=== PATIENT | female | born 1940 | race Caucasian/White ===

== ENCOUNTER 2017-03-12 21:13 | Emergency (ER) | payer MEDICARE ==
[2017-03-12 23:09] VITALS: BP 120/66
--- NOTE | 2017-03-12 23:21 | UC ---
Knee Pain HPI - HPI Summary HPI Summary: PT HAD RIGHT TOTAL KNEE 9 YEARS AGO AND HAD REVISION 5 DAYS AGO ON 03/07/[address] [facility] [address] ADDISON. TODAY RIGHT KNEE BECAME MORE PAINFUL, SWOLLEN AND RED. SWELLING HAS EXTENDED DOWN TO HER ANKLE. NO CALF TENDERNESS. IS ON LOVENOX. NO FEVER. PAINFUL TO MOVE AT THE KNEE JOINT. - History of Current Complaint Chief Complaint: UCLowerExtremity Stated Complaint: KNEE PAIN Time Seen by Provider: 03/12/17 22:43 Hx Obtained From: Patient Onset/Duration: Gradual Onset, Lasting Hours, Still Present Severity Initially: Moderate Severity Currently: Moderate Pain Intensity: 4 Pain Scale Used: 0-10 Numeric Character: Dull, Aching Aggravating Factor(s): Movement, Weight Bearing Alleviating Factor(s): Rest Associated Signs And Symptoms: Positive: Swelling, Redness Able to Bear Weight: Yes - Allergies/Home Medications Allergies/Adverse Reactions: Allergies Allergy/AdvReac Type Severity Reaction Status Date / Time No Known Allergies Allergy Verified 03/12/17 21:23 PMH/Surg Hx/FS Hx/Imm Hx Previously Healthy: Yes - Surgical History Surgical History: Yes Surgery Procedure, Year, and Place: LUMBAR [id number], THROWN FROM A HORSE 50 YEARS. BILAT CATARACT SURGERY NOVEMBER 2012, BILATERAL KNEE REPLACEMENTS. HAMMERTOES AND BUNION SURGERYS. BTL [facility]. APPENDECTOMY [facility]. LEFT WRIST 2013 [facility]. TUBAL LIGATION. LT BREAST BIOPSY. TONSILS REMOVED A CHILD - Family History Known Family History: Positive: Hypertension - Social History Alcohol Use: Occasionally Substance Use Type: None Smoking Status (MU): Never Smoked Tobacco Type: Cigarettes Have You Smoked in the Last Year: No When Did the Patient Quit Smoking/Using Tobacco: Over 50 years ago - Immunization History Most Recent Influenza Vaccination: never Most Recent Tetanus Shot: 2011 Most Recent Pneumonia Vaccination: 2011 Review of Systems Constitutional: Negative Skin: Other - ERYTHEMA AT SURGICAL SITE Respiratory: Negative Cardiovascular: Negative Gastrointestinal: Negative Musculoskeletal: Arthralgia, Decreased ROM, Edema All Other Systems Reviewed And Are Negative: Yes Physical Exam Triage Information Reviewed: Yes Appearance: Well-Appearing, No Pain Distress, Well-Nourished Vital Signs: Initial Vital Signs Temp 98.8 F 03/12/17 21:19 Pulse 76 03/12/17 21:19 Resp 18 03/12/17 21:19 BP 121/70 03/12/17 21:19 Pulse Ox 96 03/12/17 21:19 Vital Signs Reviewed: Yes Eyes: Positive: Conjunctiva Clear ENT: Positive: Hearing grossly normal Neck: Positive: Supple Respiratory: Positive: No respiratory distress, No accessory muscle use Cardiovascular: Positive: Pulses Normal Abdomen Description: Positive: Soft Musculoskeletal: Positive: ROM Limited @ - RIGHT KNEE, Edema @ - RIGHT KNEE AND ANKLE, Other: - RIGHT KNEE SURGICAL INCISION INTACT. ERYTHEMA MEDIALLY WITH TENDERNESS AND WARMTH. NO DRAINAGE Neurological: Positive: Alert Psychological: Positive: Age Appropriate Behavior Skin: Positive: Other - SURGICAL SITE ERYTHEMA AND TENDERNESS Knee Pain Course/Dx - Differential Dx/Diagnosis Provider Diagnoses: RIGHT KNEE SURGICAL SITE INFECTION - Physician Notifications Discussed Patient Care With: Chris Fuentes - [place] [facility] [place] [facility] [place] Time Discussed With Above Provider: 23:15 Discharge - Discharge Plan Condition: Stable Disposition: OTHER Discharge Disposition Comment: [place] [facility] [place] [facility] [place] Patient Education Materials: Surgical Site Infections (ED) Referrals: Umesh Cardenas MD [Primary Care Provider] - If Needed Additional Instructions: GO DIRECTLY TO THE ER FROM HERE FOR FURTHER EVALUATION
== END 2017-03-12 23:13 ==
LOC: UCEAST 21:13
DX: T81.4XXA Infection following a procedure, initial encounter (principal); Z96.651 Presence of right artificial knee joint

== ENCOUNTER 2017-03-12 23:40 | Emergency (ER) | payer MEDICARE ==
[2017-03-13 02:39] LABS: Hematocrit 41 % (35-47); Hemoglobin 13.7 g/dl (12.0-16.0); Mean Corpuscular HGB Conc 34 g/dl (31-36); Mean Corpuscular Hemoglobin 32 pg (27-31); Mean Corpuscular Volume 95 fL (80-97); Mean Platelet Volume 8 um3 (7.4-10.4); Red Blood Count 4.31 10^6/ul (4.0-5.4); Red Cell Distribution Width 13 % (10.5-15); White Blood Count 6.6 10^3/ul (3.5-10.8)
[2017-03-13 03:04] LABS: Albumin 4.1 g/dL (3.2-5.2); BUN/Creatinine Ratio 23.8 (8-20); C Reactive Protein 18.94 mg/L (< 5.00); Calcium 9.7 mg/dL (8.6-10.3); EGFR African American 85.2 (>60); EGFR Non-African American 66.3 (>60); Globulin 2.9 g/dL (2-4); Potassium 4.1 mmol/L (3.5-5.0); Total Bilirubin 0.4 mg/dL (0.2-1.0)
[2017-03-13] MEDS ORDERED: HYDROcodone/ACETAMIN 5-325 MG* 1 TAB PO ONE (03:14)
[2017-03-13] MEDS ORDERED: Docusate CAP* 100 MG PO ONE (03:14)
[2017-03-13 03:28] LABS: Erythrocyte Sed Rate 26 mm/Hr (0-40)
[2017-03-13 03:50] VITALS: BP 115/66
--- NOTE | 2017-03-15 13:11 | UC ---
Progress - Progress Note Progress Note: CALLED PT TO SEE HOW SHE IS DOING. REPORTS SHE FOLLOWED-UP WITH HER SURGEON AT [facility] AND THEY ARE WATCHING HER CLOSELY. NO ABX YET. PT STATES IT SEEMS BETTER TODAY. HAS NEXT FOLLOW-UP IN 2 DAYS. - CAIN VOGEL MD
--- NOTE | 2017-03-24 15:19 | ED ---
Pooja Ivey Rebecca, scribed for Chris Fuentes MD on 03/13/17 at 0202 . Lower Extremity - HPI Summary HPI Summary: Pt is a 76 y/o F referred from [facility] [place] who presents to ED c/o R knee pain and erythema s/p revision surgery. Five days ago she had a revision surgery on the R knee at [facility]. Two days ago, she began experiencing pain and erythema on the medial aspect of the R knee. Pain is currently mild, ranked 3/10 and was initially described as sharp and "nerve-like" though now it is described as tight. Sx aggravated by bending the knee, alleviated by nothing. Additionally c/ o ALVAREZ. States that prior to onset of sx, after the surgery, she had a more extensive ROM than she does now. - History of Current Complaint Chief Complaint: EDExtremityLower Stated Complaint: POSSIBLE INFECTION IN RT KNEE/FROM CONV CARE Time Seen by Provider: 03/13/17 01:46 Hx Obtained From: Patient Onset of Pain: Days - 2 days, Prior to Arrival Onset/Duration: Still Present Severity Currently: Mild Pain Intensity: 3 Pain Scale Used: 0-10 Numeric Location: Is Discrete @ - Medial aspect of the R knee Associated Signs And Symptoms: Positive: Redness Aggravating Factor(s): Movement Alleviating Factor(s): Nothing - Allergies/Home Medications Allergies/Adverse Reactions: Allergies Allergy/AdvReac Type Severity Reaction Status Date / Time No Known Allergies Allergy Verified 03/12/17 21:23 PMH/Surg Hx/FS Hx/Imm Hx Endocrine/Hematology History: Denies: Hx Diabetes, Hx Thyroid Disease Cardiovascular History: Reports: Other Cardiovascular Problems/Disorders - HAS OCCASSIONALLY TACHYCARDIA - CARDIAC MD AWARE Denies: Hx Angina, Hx Coronary Artery Disease, Hx Hypercholesterolemia, Hx Hypertension, Hx Myocardial Infarction, Hx Pacemaker/ICD Respiratory History: Reports: Hx Sleep Apnea Denies: Hx Asthma, Hx Chronic Obstructive Pulmonary Disease (COPD) GI History: Reports: Hx Irritable Bowel - UNDER CONTROL WITH DIET Denies: Hx Ulcer History: Reports: Hx Kidney Stones Musculoskeletal History: Reports: Hx Arthritis, Hx Back Problems - Rods in place , Other Musculoskeletal History Denies: Hx Rheumatoid Arthritis, Hx Osteoporosis Sensory History: Reports: Hx Cataracts - SURGERY DONE, Hx Contacts or Glasses, Hx Hearing Aid - BILAT Opthamlomology History: Reports: Hx Cataracts - SURGERY DONE, Hx Contacts or Glasses Neurological History: Reports: Hx Migraine Psychiatric History: Reports: Hx Anxiety, Hx Depression Denies: Hx Panic Disorder - Cancer History Hx Chemotherapy: No Hx Radiation Therapy: No - Surgical History Surgery Procedure, Year, and Place: LUMBAR [id number], THROWN FROM A HORSE 50 YEARS. BILAT CATARACT SURGERY NOVEMBER 2012, BILATERAL KNEE REPLACEMENTS. HAMMERTOES AND BUNION SURGERYS. BTL [facility] [place]. APPEN[facility]OMY [facility]. LEFT WRIST 2013 [facility] [place]. TUBAL LIGATION. LT BREAST BIOPSY. TONSILS REMOVED A CHILD Hx Anesthesia Reactions: No - WILL DEVELOP SEVERE HEAD ACHE AFTER IF NOT ABLE TO EAT Infectious Disease History: No Infectious Disease History: Denies: Hx Clostridium Difficile, Hx Hepatitis, Hx Human Immunodeficiency Virus (HIV), Hx Shingles, Hx Tuberculosis, Hx Known/Suspected VRE, Hx Known/ Suspected VRSA, History Other Infectious Disease, Traveled Outside the [place] in Last 30 Days - Family History Known Family History: Positive: Cardiac Disease - father - Social History Alcohol Use: Occasionally Substance Use Type: Reports: None Smoking Status (MU): Never Smoked Tobacco Type: Cigarettes Have You Smoked in the Last Year: No Review of Systems Negative: Fever, Chills Negative: Erythema Negative: Sore Throat Negative: Chest Pain Negative: Shortness Of Breath, Cough Negative: Abdominal Pain, Vomiting, Nausea Negative: dysuria, hematuria Positive: Arthralgia - R knee pain and erythema on the medial aspect. Negative : Myalgia, Edema Negative: Rash Neurological: Other - NEGATIVE: Dizziness All Other Systems Reviewed And Are Negative: Yes Physical Exam - Summary Physical Exam Summary: Constitutional: Well-developed, Well-nourished, Alert. (-) Distressed Skin: Warm, Dry, Mild erythema and warmth on the medial aspect of the R knee with no drainage from the wound. HENT: Normocephalic; Atraumatic Eyes: Conjunctiva normal Neck: Musculoskeletal ROM normal neck. (-) JVD, (-) Stridor, (-) Tracheal deviation Cardio: Rhythm regular, rate normal, Heart sounds normal; Intact distal pulses; The pedal pulses are 2+ and symmetric. Radial pulses are 2+ and symmetric. (-) Murmur Pulmonary/Chest wall: Effort normal. (-) Respiratory distress, (-) Wheezes, (-) Rales Abd: Soft, (-) Tenderness, (-) Distension, (-) Guarding, (-) Rebound Musculoskeletal: (-) Edema Lymph: (-) Cervical adenopathy Neuro: Alert, Oriented x3 Psych: Mood and affect Normal Triage Information Reviewed: Yes Vital Signs On Initial Exam: Initial Vitals Temp Pulse Resp BP Pulse Ox 97.7 F 70 14 104/79 100 03/12/17 23:52 03/12/17 23:52 03/12/17 23:52 03/12/17 23:52 03/12/17 23:52 Vital Signs Reviewed: Yes - [place] Coma Scale Coma Scale Total: 15 Diagnostics - Vital Signs Vital Signs Temp Pulse Resp BP Pulse Ox 03/12/17 23:52 97.7 F 70 14 104/79 100 - Laboratory Result Diagrams: 03/13/17 02:25 03/13/17 02:25 Lab Statement: Any lab studies that have been ordered have been reviewed, and results considered in the medical decision making process. Lower Extremity Course/Dx - Course Assessment/Plan: Pt is a 76 y/o F referred from [facility] [place] who presents to ED c/o R knee pain and erythema s/p revision surgery. Five days ago she had a revision surgery on the R knee at [facility]. Two days ago, she began experiencing pain and erythema on the medial aspect of the R knee. Pain is currently mild, ranked 3/10 and was initially described as sharp and "nerve-like" though now it is described as tight. Sx aggravated by bending the knee. Additionally c/o ALVAREZ. States that prior to onset of sx, after the surgery, she had a more extensive ROM than she does now. WBC of 6.6, CRP of 18.94. In the ED course, pt received [place] and [place] 5/325. Discussed care ofpt with Dr. Faustin who advised that the pt be D/C to home with a follow up with [facility] at 8 a.m. She will be D/C to home with Dx of postoperative swelling. She understands and agrees. - Diagnoses Provider Diagnoses: post-operative swelling - Physician Notifications Discussed Care Of Patient With: Dallin Faustin MD Time Discussed With Above Provider: 03:30 Instructed by Provider To: Other - Advised she be D/C to home and follow up with [facility] at 8 a.m. this morning. Discharge - Discharge Plan Condition: Stable Disposition: HOME Patient Education Materials: Swollen Knee Joint (ED) Referrals: Umesh Cardenas MD [Primary Care Provider] - Additional Instructions: Follow up with Dr. Carr or Priyanka at [facility] tomorrow at 8 a.m. RETURN TO THE EMERGENCY DEPARTMENT FOR CHANGING OR WORSENING SYMPTOMS The documentation as recorded by the Pooja amato Rebecca accurately reflects the service I personally performed and the decisions made by , Chris Fuentes MD.
== END 2017-03-13 03:49 | disposition home or self-care (01) ==
LOC: ED 23:40
DX: T81.89XA Other complications of procedures, not elsewhere classified, initial encounter (principal); R60.9 Edema, unspecified; X58.XXXA Exposure to other specified factors, initial encounter; Y92.9 Unspecified place or not applicable
CPT/HCPCS: 36415; 80053; 85027; 85652; 86140; 99282

== ENCOUNTER 2017-09-17 15:31 | Emergency (ER) | payer MEDICARE ==
--- OUTSIDE RECORDS SUMMARY | 2017-09-17 15:38 | XMS REPORT ---
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 Umesh Cardenas MD Primary Care Physician Unavailable Payers Type Date Identification Numbers Payment Provider Subscriber Commercial Policy Number: [id number] Amer Prog/Todays Options Eagle Figueredo PayID: [id number] [address] [address] Attn: [place] [address] Medigap Part B Expires: 2012 Policy Number: [facility] Eagle Figueredo [id number] Healthcare PayID: [id number] [address] [place] [address] Medigap Part B Effective: 2007 Policy Number: [id number] Medicare Eagle Figueredo Expires: 2012 PayID: [id number] [address] [place] [address] Problems Date Description Provider Status Onset: 05/11/2011 Depressive disorder Genesis Brandt M.D.,FACP Onset: 12/13/2016 Paroxysmal supraventricular Genesis Brandt tachycardia Keira,FACP Onset: 05/11/2011 Kyphoscoliosis and scoliosis Genesis Brandt M.D.,FACP Onset: 11/28/2013 Hyperlipidemia Umesh Cardenas Active Keira,FACP Onset: 04/02/2014 Primary fibromyalgia syndrome Genesis Brandt M.D.,FACP Onset: 06/17/2014 Obstructive sleep apnea of adult Jenny JERI Conner, RN, Active 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 Onset: 06/03/2015 Idiopathic peripheral neuropathy Harjit Gregg MD Active Onset: 06/03/2015 Carpal tunnel syndrome of left Harjit Gregg MD Active wrist Onset: 10/29/2015 Abnormal gait Harjit Gregg MD Active Onset: 10/29/2015 Neck pain Harjit Gregg MD Active Onset: 10/29/2015 Lumbar radiculopathy Harjit Gregg MD Active Onset: 11/03/2015 Localized, primary osteoarthritis Umesh Cardenas Active of the shoulder region Keira,FACP Note: LEFT Onset: 08/18/2016 Thoracic and lumbosacral Harjit Gregg MD Active neuritis Onset: 02/11/2014 Osteoarthritis Umesh Cardenas, Inactive Keira,FACP Inactive: 11/03/2015 Onset: 10/08/2015 Allergic arthritis of the Umesh Cardenas M.D.,FACP Inactive shoulder region Inactive: 11/03/2015 Family History Date Family Member(s) Problem(s) Comments General Diabetes General Heart Disease : (age 65 Years) Father due to NE : (age 85 Years) Mother due to CHF Children 2 Siblings 2 1 now First Sister due to Cancer, Ovarian () Second Sister Stroke due to PFO Second Sister Cancer, Breast Social History Type Date Description Comments Marital Status Lives With Occupation 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 [employer] Cigarette Use Never Smoked Cigarettes ETOH Use 09/06/2016 Rarely consumes alcohol Smoking Patient has never smoked Recreational Drug Use Denies Drug Use Daily Caffeine Consumes on average 2 cups half caff of regular coffee per day Exercise Type/Frequency Riley Chi General Hx Text 2 children Allergies, Adverse Reactions, Alerts Date Description Reaction Status Severity Comments 09/12/2013 NKDA active 03/04/2011 NKDA inactive Medications Medication Date Status Form Strength Qnty SIG Indications Ordering Provider Gabapentin 10/20 Active Capsules 100mg 240ca Take 1 G60.8 ps Capsule Four Marysol, Times A Day MD For 2 Weeks Then Increase To Take 2 Capsules By Mouth Four Times A Day Baclofen 08/18 Active Tablets 10mg 90tab Take / To M54.14 Bailee Awad s 1 Tablet By Janeth, Mouth At M.D. Night Bisoprolol 07/02 Active Tablets 5mg 45tab 1/2 by mouth Umesh s every day John Cardenas M.D.,[facility] Cymbalta 04/[address] 60mg 90cap 1 by mouth Part s every day John Cardenas M.D.,[facility] Lorazepam Active Tablets 0.5mg 30tab 1-2 by mouth s every 8 John Cardenas, hours as M.John,[facility] Dewy Rose 3 Active Capsules daily Unknown / Vitamin B-12 Active daily Unknown /0000 Probiotic Active Capsules daily Unknown Formula /0000 Turmeric Active four daily Unknown /0000 Holy Basil Active Homeopathic Unknown /0000 prn Vitamin D Active Capsules 1 by mouth Unknown (Cholecalciferol /0000 every day ) Magnesium Active Tablets 1 by mouth Unknown /0000 every day Wild Yam Active Capsules 100mg 1 cap po bid Unknown /0000 Black Cohosh 09/06 Hx Capsules 160mg ( not taking) John Cardenas, - Keira,[facility] 09/19 Ultracet 04/12 Hx Tablets 37.5-325m 30tab 1-2 tabs by Afia g s mouth every Sheppard, - 4-6 hours as Keira 09/06 needed pain Diphenhydramine 07/23 Hx Tablets 25mg 1 tab in R53.83 Umesh evening to John Cardenas, - aid sleep Keira,FACP 10/07 Metoprolol 06/23 Hx Tablets 25mg 60tab 1/2 by mouth I47.1 Kamron S. Succinate ER ER 24HR s daily at [facility], DO - bedtime FAC 07/02 Duloxetine HCL 04/[address] 60mg 30cap take one Part s capsule by John Cardenas, - mouth every M.D.,FACP Gabapentin 04/13 Hx Capsules 100mg 240ca Take Two ps Capsules By John Cardenas, - Mouth Four M.D.,FACP 03/17 Times A Day Diltiazem HCL ER 12/18 Hx Caps ER 120mg 90cap take one 785.1 Umesh Coated Beads 24HR s capsule by John Cardenas, - mouth every M.D.,FACP [id number] 04/02 Hx Capsules 500-50mg 60cap by mouth 715.09 s twice a day Francesca Rosales M.D.,[facility] 04/16 Voltaren 02/11 Hx Gel 1% 100g apply 2 gms 715.09 to elbow John Cardenas, - twice a day M.DPraveena,[facility] 03/29 as needed Can also use 1-2 grams on fingers, feet as needed Glucosamine 02/11 Hx Tablets 1 tab by 715.09 Umesh Chondroitin mouth twice John Cardenas, Advanced - a day. M.DPraveena,FACP 04/16 Naproxen 12/31 Hx Tablets 500mg 28tab by mouth 726.[address] jacobsen twice a day Faustino, - with food x N.P. 02/11 14 Diltiazem HCL ER 12/04 Hx Caps ER 120mg 90cap 1 po qd 785.1 Umesh Segovia 24HR s Francesca Rosales M.D.,[facility] 12/18 [place] 10/31 Hx Tablets 5-325mg 40tab 1-2 tab by Afia s mouth every Sheppard, - 4-6 hours as M.D. 12/04 needed pain /2013 Percocet 09/12 Hx Tablets 5-325mg 60tab take 1-2 s tabs by Sheppard, - mouth q4-6 M.D. 04/02 hours needed pain Azithromycin 10/05 Hx Tablets 250mg 6tabs 2 qd for 1 466.0 Umesh day, then 1 John Cardenas, - qd M.DPraveena,[facility] 12/12 Cheratussin ac 10/05 Hx Syrup 100-10mg/ 200ml 2 tsp po qid 466.0 Patricia 5ML prn Francesca Rosales M.D.,[facility] 02/02 Cymbalta 03/[address] 60mg 30cap 1 by mouth Lucho Part s every day JAVED Morales - 04/13 Cyclobenzaprine 03/04 Hx Tablets 10mg 45tab one po tid Umesh s prn spasm Francesca Rosales M.D.,[facility] 04/16 Atenolol 03/04 Hx Tablets 25mg 90tab Take One 785.1 Umesh s Tablet By John Cardenas, - Mouth Every M.DPraveena,[facility] Gabapentin 03/04 Hx Capsules 100mg 240ca take two ps capsules by JAVED Morales - mouth four 04/13 times a /2014 Cephalexin 00 Hx Tablets 250mg 20tab 1 po qid for Unknown /0000 s 5 days - 08/21 Augmentin 00 Hx Tablets 875-125mg 20tab one by mouth Unknown /0000 s every 12 - hours for 11/22 Meloxicam 00/ Hx Tablets 7.5mg 30tab 1 by mouth Unknown /0000 s every day - 04/16 Tramadol HCL Hx Tablets 50mg 50tab 1/2 to 1 tab Umesh /0000 s four times a John Cardenas, - day as Keira,[facility] 03/17 Vitamin D 00/ Hx 3000Iu One tab PO Unknown (Cholecalciferol /0000 daily ) - 03/30 Medications Administered in Office Medication Date Status Form Strength Qnty SIG Indications Ordering Provider Depomedrol Administered Injection Afia 80MG 015 Keira Sheppard Depomedrol Administered Injection Afia 80MG 015 Keira Sheppard Immunizations CPT Code Status Date Vaccine Lot # [id number] Given 10/08/2015 Pneumococcal Conjugate Vaccine 13 Valent For [id number] Intramuscular Use [id number] Given 04/17/2012 Tdap - Tetanus/Diptheria/Acellular Pertussis [id number] Given 03/23/2012 Fluzone Vaccine [id number] Given 03/04/2011 Zoster (Zostavax) [id number] 30745 Given 03/04/2011 Pneumonia Vaccine [id number] 39206 Given 08/16/2004 Td Toxoids Adsorbed For Use 7Yrs Or Older For Intramuscular Use [id number] Refused 05/11/2011 Influenza Virus 3Yrs & Over Vital Signs Date Vital Result Comment 08/24/2017 Height 64 inches 5'4" Weight 142.00 lb with shoes Heart Rate 68 /min BP Systolic Sitting 114 mmHg Lue reg cuff BP Diastolic Sitting 60 mmHg Lue reg cuff BP Systolic Standing 112 mmHg Lue reg cuff BP Diastolic Standing 62 mmHg Lue reg cuff Respiratory Rate 17 /min BMI (Body Mass Index) 24.4 kg/m2 02/28/2017 Height 63.25 inches 5'3.25" Weight 146.25 lb Heart Rate 61 /min BP Systolic Sitting 98 mmHg BP Diastolic Sitting 50 mmHg Body Temperature 98.0 F O2 % BldC Oximetry 98 % BMI (Body Mass Index) 25.7 kg/m2 02/21/2017 Height 65.5 inches 5'5.50" Weight 148.00 lb Heart Rate 78 /min BP Systolic Sitting 122 mmHg BP Diastolic Sitting 80 mmHg BMI (Body Mass Index) 24.3 kg/m2 01/10/2017 Height 65.5 inches 5'5.50" Weight 146.00 lb Heart Rate 68 /min BP Systolic Sitting 118 mmHg BP Diastolic Sitting 72 mmHg Respiratory Rate 14 /min O2 % BldC Oximetry 97 % BMI (Body Mass Index) 23.9 kg/m2 12/13/2016 Weight 143.25 lb Heart Rate 82 /min BP Systolic Sitting 102 mmHg BP Diastolic Sitting 56 mmHg BP Systolic Standing 118 mmHg BP Diastolic Standing 68 mmHg BP Systolic Lying Down 105 mmHg BP Diastolic Lying Down 68 mmHg BP Systolic Recheck 122 mmHg BP Diastolic Recheck 70 mmHg Body Temperature 98.2 F O2 % BldC Oximetry 96 % 10/20/2016 Height 65 inches 5'5" Weight 145.00 lb Heart Rate 60 /min BP Systolic Sitting 118 mmHg BP Diastolic Sitting 70 mmHg BMI (Body Mass Index) 24.1 kg/m2 09/15/2016 Height 65 inches 5'5" Weight 149.50 lb no shoes Heart Rate 60 /min BP Systolic Sitting 114 mmHg Rue reg cuff BP Diastolic Sitting 62 mmHg Rue reg cuff BP Systolic Standing 108 mmHg Rue reg cuff BP Diastolic Standing 64 mmHg Rue reg cuff Respiratory Rate 15 /min BMI (Body Mass Index) 24.9 kg/m2 Ejection Fraction 60-65% 06/24/2015-echo 09/06/2016 Height 65 inches 5'5" Weight 147.00 lb Heart Rate 48 /min BP Systolic Sitting 108 mmHg BP Diastolic Sitting 60 mmHg Body Temperature 97.9 F BMI (Body Mass Index) 24.5 kg/m2 08/18/2016 Height 65 inches 5'5" Weight 147.12 lb Heart Rate 62 /min BP Systolic Sitting 118 mmHg BP Diastolic Sitting 76 mmHg BMI (Body Mass Index) 24.5 kg/m2 06/30/2016 Height 65 inches 5'5" Weight 141.00 lb w/o shoes Heart Rate 60 /min reg BP Systolic Sitting 106 mmHg Lue, reg cuff BP Diastolic Sitting 60 mmHg Lue, reg cuff BP Systolic Standing 106 mmHg Lue BP Diastolic Standing 64 mmHg Lue Respiratory Rate 16 /min BMI (Body Mass Index) 23.5 kg/m2 Ejection Fraction 60-65% as of 06/24/15 echo 04/25/2016 Height 65 inches 5'5" Weight 141.00 lb Body Temperature 96.3 F BMI (Body Mass Index) 23.5 kg/m2 03/31/2016 Height 65 inches 5'5" Weight 141.00 lb Heart Rate 68 /min BP Systolic 116 mmHg BP Diastolic 62 mmHg Pain Level 1 BMI (Body Mass Index) 23.5 kg/m2 03/17/2016 Weight 141.00 lb Heart Rate 74 /min BP Systolic Sitting 124 mmHg BP Diastolic Sitting 66 mmHg Respiratory Rate 15 /min Body Temperature 98.2 F O2 % BldC Oximetry 98 % 12/21/2015 Height 65.5 inches 5'5.50" Weight 140.00 lb Heart Rate 64 /min BP Systolic Sitting 122 mmHg BP Diastolic Sitting 68 mmHg Respiratory Rate 14 /min BMI (Body Mass Index) 22.9 kg/m2 11/03/2015 Height 65.5 inches 5'5.50" Weight 141.00 lb Heart Rate 59 /min BP Systolic Sitting 128 mmHg BP Diastolic Sitting 72 mmHg Body Temperature 97.7 F O2 % BldC Oximetry 97 % BMI (Body Mass Index) 23.1 kg/m2 10/29/2015 Height 65.5 inches 5'5.50" Weight 140.00 lb Heart Rate 76 /min BP Systolic Sitting 112 mmHg BP Diastolic Sitting 68 mmHg Respiratory Rate 14 /min BMI (Body Mass Index) 22.9 kg/m2 10/23/2015 Height 65.5 inches 5'5.50" Weight 140.00 lb Heart Rate 65 /min BP Systolic Sitting 112 mmHg BP Diastolic Sitting 64 mmHg Respiratory Rate 14 /min O2 % BldC Oximetry 98 % BMI (Body Mass Index) 22.9 kg/m2 10/08/2015 Height 63.5 inches 5'3.50" Weight 140.00 lb Heart Rate 64 /min BP Systolic Sitting 100 mmHg BP Diastolic Sitting 62 mmHg Body Temperature 97.7 F O2 % BldC Oximetry 98 % BMI (Body Mass Index) 24.4 kg/m2 08/04/2015 Height 63.5 inches 5'3.50" Weight 143.00 lb Heart Rate 60 /min BP Systolic Sitting 106 mmHg BP Diastolic Sitting 68 mmHg Respiratory Rate 18 /min O2 % BldC Oximetry 97 % BMI (Body Mass Index) 24.9 kg/m2 Neck Circumference in inches 13 07/24/2015 Height 63.5 inches 5'3.50" Weight 145.00 lb w/o shoes Heart Rate 80 /min reg BP Systolic Sitting 104 mmHg Rue, reg cuff BP Diastolic Sitting 70 mmHg Rue, reg cuff BP Systolic Standing 106 mmHg Rue BP Diastolic Standing 66 mmHg Rue Respiratory Rate 16 /min BMI (Body Mass Index) 25.3 kg/m2 Ejection Fraction 60-65% as of 06/24/15 echo 07/23/2015 Height 63.5 inches 5'3.50" Weight 144.00 lb Heart Rate 72 /min BP Systolic Sitting 98 mmHg BP Diastolic Sitting 60 mmHg Body Temperature 96.3 F O2 % BldC Oximetry 96 % BMI (Body Mass Index) 25.1 kg/m2 06/23/2015 Height 63.5 inches 5'3.50" Weight 134.00 lb Heart Rate 72 /min BP Systolic 102 mmHg Ra reg cuff BP Diastolic 68 mmHg Ra reg cuff BP Systolic Sitting 102 mmHg LA reg cuff BP Diastolic Sitting 64 mmHg LA reg cuff BP Systolic Standing 98 mmHg Ra BP Diastolic Standing 58 mmHg Ra Respiratory Rate 16 /min BMI (Body Mass Index) 23.4 kg/m2 06/16/2015 Weight 141.00 lb Heart Rate 60 /min BP Systolic Sitting 100 mmHg BP Diastolic Sitting 62 mmHg Body Temperature 98.5 F O2 % BldC Oximetry 97 % 06/03/2015 Height 63.75 inches 5'3.75" Weight 140.00 lb Heart Rate 72 /min BP Systolic Sitting 118 mmHg BP Diastolic Sitting 60 mmHg BMI (Body Mass Index) 24.2 kg/m2 01/02/2015 Weight 145.00 lb Heart Rate 72 /min BP Systolic Sitting 116 mmHg BP Diastolic Sitting 68 mmHg Body Temperature 98.6 F O2 % BldC Oximetry 98 % 12/02/2014 Height 65 inches 5'5" Heart Rate 68 /min BP Systolic Sitting 118 mmHg BP Diastolic Sitting 64 mmHg Respiratory Rate 16 /min 10/07/2014 Height 65 inches 5'5" Weight 144.00 lb Heart Rate 72 /min BP Systolic Sitting 126 mmHg BP Diastolic Sitting 66 mmHg Respiratory Rate 16 /min BMI (Body Mass Index) 24.0 kg/m2 07/10/2014 Height 65 inches 5'5" Heart Rate 76 /min BP Systolic 103 mmHg BP Diastolic 66 mmHg 06/17/2014 Height 65 inches 5'5" Weight 149.00 lb Heart Rate 62 /min BP Systolic Sitting 126 mmHg BP Diastolic Sitting 58 mmHg Respiratory Rate 18 /min O2 % BldC Oximetry 97 % BMI (Body Mass Index) 24.8 kg/m2 06/17/2014 Weight 149.50 lb Heart Rate 84 /min BP Systolic Sitting 98 mmHg BP Diastolic Sitting 56 mmHg Body Temperature 97.6 F 06/03/2014 Height 65 inches 5'5" Weight 149.50 lb Heart Rate 72 /min BP Systolic Sitting 110 mmHg BP Diastolic Sitting 71 mmHg Body Temperature 97.8 F O2 % BldC Oximetry 96 % BMI (Body Mass Index) 24.9 kg/m2 05/20/2014 Weight 149.00 lb Heart Rate 80 /min BP Systolic Sitting 106 mmHg BP Diastolic Sitting 52 mmHg Body Temperature 97.5 F 04/16/2014 Weight 146.50 lb Heart Rate 80 /min BP Systolic Sitting 104 mmHg BP Diastolic Sitting 50 mmHg Body Temperature 97.7 F 04/02/2014 Weight 145.00 lb Heart Rate 88 /min BP Systolic Sitting 108 mmHg BP Diastolic Sitting 48 mmHg Body Temperature 98.5 F 02/13/2014 Height 65 inches 5'5" Weight 140.00 lb Heart Rate 69 /min BP Systolic 110 mmHg BP Diastolic 69 mmHg BMI (Body Mass Index) 23.3 kg/m2 02/11/2014 Weight 144.00 lb Heart Rate 82 /min BP Systolic Sitting 120 mmHg BP Diastolic Sitting 66 mmHg Body Temperature 97.3 F 12/31/2013 Height 64.75 inches 5'4.75" Weight 145.00 lb Heart Rate 80 /min BP Systolic Sitting 102 mmHg BP Diastolic Sitting 48 mmHg Body Temperature 97.8 F BMI (Body Mass Index) 24.3 kg/m2 12/04/2013 Height 64.75 inches 5'4.75" Weight 141.75 lb Heart Rate 80 /min BP Systolic Sitting 104 mmHg BP Diastolic Sitting 62 mmHg Body Temperature 98.6 F BMI (Body Mass Index) 23.8 kg/m2 11/14/2013 Height 65 inches 5'5" Weight 140.00 lb Body Temperature 98.2 F BMI (Body Mass Index) 23.3 kg/m2 10/31/2013 Height 65 inches 5'5" Heart Rate 67 /min BP Systolic 101 mmHg BP Diastolic 58 mmHg 09/26/2013 Height 65.5 inches 5'5.50" Weight 142.00 lb Heart Rate 56 /min BP Systolic 113 mmHg BP Diastolic 69 mmHg BMI (Body Mass Index) 23.3 kg/m2 09/12/2013 Height 65.5 inches 5'5.50" Weight 140.00 lb Heart Rate 69 /min BP Systolic 103 mmHg BP Diastolic 72 mmHg BMI (Body Mass Index) 22.9 kg/m2 01/24/2013 Height 65 inches 5'5" Weight 140.00 lb Heart Rate 58 /min BP Systolic 103 mmHg BP Diastolic 64 mmHg BMI (Body Mass Index) 23.3 kg/m2 11/22/2012 Weight 142.00 lb Heart Rate 76 /min BP Systolic Sitting 118 mmHg BP Diastolic Sitting 72 mmHg 09/13/2012 Height 64.75 inches 5'4.75" Weight 140.50 lb Heart Rate 76 /min BP Systolic Sitting 106 mmHg BP Diastolic Sitting 64 mmHg Body Temperature 98.9 F BMI (Body Mass Index) 23.6 kg/m2 08/21/2012 Height 65.25 inches 5'5.25" Weight 140.50 lb Heart Rate 76 /min BP Systolic Sitting 110 mmHg BP Diastolic Sitting 62 mmHg BMI (Body Mass Index) 23.2 kg/m2 04/17/2012 Height 64.5 inches 5'4.50" Weight 136.00 lb Heart Rate 68 /min BP Systolic Sitting 110 mmHg BP Diastolic Sitting 58 mmHg BMI (Body Mass Index) 23.0 kg/m2 12/13/2011 Weight 135.00 lb Heart Rate 70 /min BP Systolic Sitting 94 mmHg BP Diastolic Sitting 54 mmHg Body Temperature 97.8 F lt ear 10/06/2011 Weight 136.00 lb Heart Rate 68 /min BP Systolic Sitting 98 mmHg BP Diastolic Sitting 56 mmHg Body Temperature 98.7 F lt ear 05/11/2011 Weight 146.00 lb Heart Rate 64 /min BP Systolic Sitting 100 mmHg BP Diastolic Sitting 60 mmHg 03/04/2011 Height 65 inches 5'5" Weight 132.00 lb Heart Rate 68 /min BP Systolic Sitting 108 mmHg BP Diastolic Sitting 62 mmHg BMI (Body Mass Index) 22.0 kg/m2 Results Test Date Test Result H/L Range Note Comp Metabolic Panel 03/13/2017 Sodium 138 mmol/L 133-145 Potassium 4.1 mmol/L 3.5-5.0 Chloride 101 mmol/L 101-111 Co2 Carbon Dioxide 30 mmol/L 22-32 Anion Gap 7 mmol/L 2-11 Glucose 106 mg/dL High 70-100 Blood Urea Nitrogen 20 mg/dL 6-24 Creatinine 0.84 mg/dL 0.51-0.95 BUN/Creatinine Ratio 23.8 High 8-20 Calcium 9.7 mg/dL 8.6-10.3 Total Protein 7.0 g/dL 6.4-8.9 Albumin 4.1 g/dL 3.2-5.2 Globulin 2.9 g/dL 2-4 Albumin/Globulin Ratio 1.4 1-3 Total Bilirubin 0.40 mg/dL 0.2-1.0 Alkaline Phosphatase 63 U/L 34-104 Alt 13 U/L 7-52 Ast 18 U/L 13-39 Egfr Non- 66.3 >60 Egfr 85.2 >60 1 Laboratory test finding 03/13/2017 C Reactive Protein 18.94 mg/L High &lt ; 5.00 2 CBC No Diff 03/13/2017 White Blood Count 6.6 10^3/uL 3.5-10.8 Red Blood Count 4.31 10^6/uL 4.0-5.4 Hemoglobin 13.7 g/dL 12.0-16.0 Hematocrit 41 % 35-47 Mean Corpuscular Volume 95 fL 80-97 Mean Corpuscular Hemoglobin 32 pg High 27-31 Mean Corpuscular HGB Conc 34 g/dL 31-36 Red Cell Distribution Width 13 % 10.5-15 Platelet Count 292 10^3/uL 150-450 Mean Platelet Volume 8 um3 7.4-10.4 Laboratory test finding 03/13/2017 Erythrocyte Sed Rate 26 mm/Hr 0-40 Lipid Profile (Trig/Chol/HDL) 02/24/2017 Triglycerides 73 mg/dL 3 Cholesterol 209 mg/dL 4 HDL Cholesterol 71.8 mg/dL 5 LDL Cholesterol 123 mg/dL 6 Basic Metabolic Panel 02/24/2017 Sodium 140 mmol/L 133-145 Potassium 4.2 mmol/L 3.5-5.0 Chloride 104 mmol/L 101-111 Co2 Carbon Dioxide 32 mmol/L 22-32 Anion Gap 4 mmol/L 2-11 Glucose 91 mg/dL 70-100 Blood Urea Nitrogen 19 mg/dL 6-24 Creatinine 0.82 mg/dL 0.51-0.95 BUN/Creatinine Ratio 23.2 High 8-20 Calcium 9.6 mg/dL 8.6-10.3 Egfr Non- 68.1 >60 Egfr 87.6 >60 7 CBC Auto Diff 12/13/2016 White Blood Count 6.3 10^3/uL 3.5-10.8 Red Blood Count 4.37 10^6/uL 4.0-5.4 Hemoglobin 13.6 g/dL 12.0-16.0 Hematocrit 41 % 35-47 Mean Corpuscular Volume 94 fL 80-97 Mean Corpuscular Hemoglobin 31 pg 27-31 Mean Corpuscular HGB Conc 33 g/dL 31-36 Red Cell Distribution Width 14 % 10.5-15 Platelet Count 239 10^3/uL 150-450 Mean Platelet Volume 9 um3 7.4-10.4 Abs Neutrophils 3.9 10^3/uL 1.5-7.7 Abs Lymphocytes 1.8 10^3/uL 1.0-4.8 Abs Monocytes 0.4 10^3/uL 0-0.8 Abs Eosinophils 0.1 10^3/uL 0-0.6 Abs Basophils 0.1 10^3/uL 0-0.2 Abs Nucleated RBC 0 10^3/uL Granulocyte % 61.2 % 38-83 Lymphocyte % 28.7 % 25-47 Monocyte % 7.1 % 1-9 Eosinophil % 2.2 % 0-6 Basophil % 0.8 % 0-2 Nucleated Red Blood Cells % 0.1 Laboratory test finding 12/13/2016 TSH (Thyroid Stim Horm) 1.69 mcIU/mL 0.34-5.60 Basic Metabolic Panel 12/13/2016 Sodium 140 mmol/L 133-145 Potassium 4.0 mmol/L 3.5-5.0 Chloride 105 mmol/L 101-111 Co2 Carbon Dioxide 28 mmol/L 22-32 Anion Gap 7 mmol/L 2-11 Glucose 83 mg/dL 70-100 Blood Urea Nitrogen 27 mg/dL High 6-24 Creatinine 0.75 mg/dL 0.51-0.95 BUN/Creatinine Ratio 36.0 High 8-20 Calcium 9.3 mg/dL 8.6-10.3 Egfr Non- 75.5 >60 Egfr 97.1 >60 8 Laboratory test 04/12/2016 Surgical Pathology SEE RESULT BELOW 9, 10 finding Comp Metabolic Panel 10/30/2015 Sodium 139 mmol/L 133-145 Potassium 4.3 mmol/L 3.5-5.0 Chloride 103 mmol/L 101-111 Co2 Carbon Dioxide 30 mmol/L 22-32 Anion Gap 6 mmol/L 2-11 Glucose 92 mg/dL 70-100 Blood Urea Nitrogen 23 mg/dL 6-24 Creatinine 0.80 mg/dL 0.51-0.95 BUN/Creatinine Ratio 28.8 High 8-20 Calcium 9.3 mg/dL 8.6-10.3 Total Protein 6.3 g/dL Low 6.4-8.9 Albumin 4.2 g/dL 3.2-5.2 Globulin 2.1 g/dL 2-4 Albumin/Globulin Ratio 2.0 1-3 Total Bilirubin 0.50 mg/dL 0.2-1.0 Alkaline Phosphatase 72 U/L 34-104 Alt 23 U/L 7-52 Ast 26 U/L 13-39 Egfr Non- 70.3 >60 Egfr 90.4 >60 11 CBC Auto Diff 10/30/2015 White Blood Count 4.9 10^3/uL 3.5-10.8 Red Blood Count 4.50 10^6/uL 4.0-5.4 Hemoglobin 13.8 g/dL 12.0-16.0 Hematocrit 43 % 35-47 Mean Corpuscular Volume 95 fL 80-97 Mean Corpuscular Hemoglobin 31 pg 27-31 Mean Corpuscular HGB Conc 32 g/dL 31-36 Red Cell Distribution Width 14 % 10.5-15 Platelet Count 257 10^3/uL 150-450 Mean Platelet Volume 9 um3 7.4-10.4 Abs Neutrophils 2.4 10^3/uL 1.5-7.7 Abs Lymphocytes 1.7 10^3/uL 1.0-4.8 Abs Monocytes 0.5 10^3/uL 0-0.8 Abs Eosinophils 0.1 10^3/uL 0-0.6 Abs Basophils 0 10^3/uL 0-0.2 Abs Nucleated RBC 0.01 10^3/uL Granulocyte % 50.0 % 38-83 Lymphocyte % 35.6 % 25-47 Monocyte % 10.3 % High 1-9 Eosinophil % 3.1 % 0-6 Basophil % 1.0 % 0-2 Nucleated Red Blood Cells % 0.1 Lipid Profile (Trig/Chol/HDL) 09/25/2015 Triglycerides 49 mg/dL 12 Cholesterol 184 mg/dL 13 HDL Cholesterol 58.8 mg/dL 14 LDL Cholesterol 115 mg/dL 15 Laboratory test finding 09/23/2015 Vitamin B12 683 pg/mL 180-914 16 Laboratory test finding 06/16/2015 TSH (Thyroid Stim Horm) 2.76 ?IU/mL 0.34-5.60 T3 Total 0.77 ng/mL Low 0.87-1.78 Free T4 (Free Thyroxine) 0.82 ng/mL 0.61-1.12 Laboratory test finding 06/14/2015 Troponin-I (TnI) 0.03 ng/mL High < 0.03 17 Laboratory test finding 06/14/2015 Troponin-I (TnI) 0.02 ng/mL <0.03 18 CBC Auto Diff 06/14/2015 White Blood Count 9.3 10^3/uL 3.5-10.8 Red Blood Count 4.91 10^6/uL 4.0-5.4 Hemoglobin 15.4 g/dL 12.0-16.0 Hematocrit 47 % 35-47 Mean Corpuscular Volume 96 fL 80-97 Mean Corpuscular Hemoglobin 31 pg 27-31 Mean Corpuscular HGB Conc 33 g/dL 31-36 Red Cell Distribution Width 13 % 10.5-15 Platelet Count 300 10^3/uL 150-450 Mean Platelet Volume 9 um3 7.4-10.4 Abs Neutrophils 5.6 10^3/uL 1.5-7.7 Abs Lymphocytes 2.6 10^3/uL 1.0-4.8 Abs Monocytes 0.6 10^3/uL 0-0.8 Abs Eosinophils 0.2 10^3/uL 0-0.6 Abs Basophils 0.2 10^3/uL 0-0.2 Abs Nucleated RBC 0.01 10^3/uL Granulocyte % 60.0 % 38-83 Lymphocyte % 28.2 % 25-47 Monocyte % 7.0 % 1-9 Eosinophil % 2.6 % 0-6 Basophil % 2.2 % High 0-2 Nucleated Red Blood Cells % 0.1 Laboratory test finding 06/14/2015 Troponin-I (TnI) 0.00 ng/mL <0.03 19 Comp Metabolic Panel 06/14/2015 Sodium 137 mmol/L 133-145 Potassium 4.5 mmol/L 3.5-5.0 Chloride 100 mmol/L Low 101-111 Co2 Carbon Dioxide 27 mmol/L 22-32 Anion Gap 10 mmol/L 2-11 Glucose 113 mg/dL High 70-100 Blood Urea Nitrogen 25 mg/dL High 6-24 Creatinine 0.85 mg/dL 0.51-0.95 BUN/Creatinine Ratio 29.4 High 8-20 Calcium 10.3 mg/dL 8.6-10.3 Total Protein 7.0 g/dL 6.4-8.9 Albumin 4.7 g/dL 3.2-5.2 Globulin 2.3 g/dL 2-4 Albumin/Globulin Ratio 2.0 1-3 Total Bilirubin 0.50 mg/dL 0.2-1.0 Alkaline Phosphatase 91 U/L 34-104 Alt 21 U/L 7-52 Ast 31 U/L 13-39 Egfr Non- 65.7 >60 Egfr 84.5 >60 20 Laboratory test 06/14/2015 D Dimer Quantitative 321 ng/mL High Less Than 230 21 finding Magnesium 2.1 mg/dL 1.9-2.7 Comp Metabolic Panel 12/28/2014 Sodium 140 mmol/L 133-145 Potassium 4.2 mmol/L 3.5-5.0 Chloride 106 mmol/L 101-111 Co2 Carbon Dioxide 28 mmol/L 22-32 Anion Gap 6 mmol/L 2-11 Glucose 105 mg/dL High 70-100 Blood Urea Nitrogen 22 mg/dL 6-24 Creatinine 0.79 mg/dL 0.51-0.95 BUN/Creatinine Ratio 27.8 High 8-20 Calcium 9.1 mg/dL 8.6-10.3 Total Protein 6.0 g/dL Low 6.4-8.9 Albumin 4.2 g/dL 3.2-5.2 Globulin 1.8 g/dL Low 2-4 Albumin/Globulin Ratio 2.3 1-3 Total Bilirubin 0.40 mg/dL 0.2-1.0 Alkaline Phosphatase 83 U/L 34-104 Alt 17 U/L 7-52 Ast 23 U/L 13-39 Egfr Non- 71.5 >60 Egfr 92.0 >60 22 CBC Auto Diff 12/28/2014 White Blood Count 8.2 10^3/uL 4.8-10.8 Red Blood Count 4.53 10^6/uL 4.0-5.4 Hemoglobin 14.2 g/dL 12.0-16.0 Hematocrit 43 % 35-47 Mean Corpuscular Volume 96 fL 80-97 Mean Corpuscular Hemoglobin 32 pg High 27-31 Mean Corpuscular HGB Conc 33 g/dL 31-36 Red Cell Distribution Width 13 % 10.5-15 Platelet Count 247 10^3/uL 150-450 Mean Platelet Volume 9 um3 7.4-10.4 Abs Neutrophils 5.9 10^3/uL 1.5-7.7 Abs Lymphocytes 1.6 10^3/uL 1.0-4.8 Abs Monocytes 0.5 10^3/uL 0-0.8 Abs Eosinophils 0.1 10^3/uL 0-0.6 Abs Basophils 0.1 10^3/uL 0-0.2 Abs Nucleated RBC 0.01 10^3/uL Granulocyte % 71.8 % 38-83 Lymphocyte % 19.4 % Low 25-47 Monocyte % 6.4 % 1-9 Eosinophil % 1.6 % 0-6 Basophil % 0.8 % 0-2 Nucleated Red Blood Cells % 0.1 Laboratory test finding 03/18/2014 Lyme Disease Serology Negative Negative 23 Erythrocyte Sed Rate 7 mm/Hr 0-40 C Reactive Protein < 0.10 mg/L < 5.00 24 Rheumatoid Factor <15 IU/mL <15 25 Vitamin D, 25 Hydroxy 12/16/2013 25-Hydroxy Vitamin D2 <4.0 ng/mL 25-Hydroxy Vitamin D3 63 ng/mL 25-Hydroxy Vitamin D Total 63 ng/mL 26 Lipid Profile (Trig/Chol/HDL) 12/09/2013 Triglycerides 96 mg/dL 27, 28 Cholesterol 215 mg/dL 27, 29 HDL Cholesterol 70.5 mg/dL 27, 30 LDL Cholesterol 125 mg/dL 27, 31 Laboratory test 12/09/2013 TSH (Thyroid 1.83 IU/mL 0.34-5.60 27, 32 finding Stimulating Horm) T4 6.09 g/dL 6.09-12.23 27, 33 Comp Metabolic Panel 12/09/2013 Sodium 139 mmol/L 133-145 27 Potassium 4.2 mmol/L 3.7-5.6 27 Chloride 102 mmol/L 101-111 27 Co2 Carbon Dioxide 29 mmol/L 22-32 27 Anion Gap 8 mmol/L 2-11 27 Glucose 78 mg/dL 70-100 27 Blood Urea Nitrogen 19 mg/dL 6-24 27 Creatinine 0.85 mg/dL 0.51-0.95 27 BUN/Creatinine Ratio 22.4 High 8-20 27 Calcium 9.8 mg/dL 8.6-10.3 27 Total Protein 6.5 g/dL 6.4-8.9 27 Albumin 4.5 g/dL 3.2-5.2 27 Globulin 2.0 g/dL 2-4 27 Albumin/Globulin Ratio 2.3 1-3 27 Total Bilirubin 0.50 mg/dL 0.2-1.0 27 Alkaline Phosphatase 79 U/L 34-104 27 Alt 18 U/L 7-52 27 Ast 24 U/L 13-39 27 Egfr Non- 65.9 >60 27 Egfr 84.8 >60 27, 34 CBC With Manual Diff 12/09/2013 White Blood Count 5.1 10^3/uL 4.8-10.8 27 Red Blood Count 4.50 10^6/uL 4.0-5.4 27 Hemoglobin 14.3 g/dL 12.0-16.0 27 Hematocrit 43 % 35-47 27 Mean Corpuscular Volume 95 fL 80-97 27 Mean Corpuscular Hemoglobin 32 pg High 27-31 27 Mean Corpuscular HGB Conc 34 g/dL 31-36 27 Red Cell Distribution Width 14 % 10.5-15 27 Platelet Count 255 10^3/uL 150-450 27 Mean Platelet Volume 8 um3 7.4-10.4 27 Abs Neutrophils 2.7 10^3/uL 1.5-7.7 27 Abs Lymphocytes 1.9 10^3/uL 1.0-4.8 27 Abs Monocytes 0.3 10^3/uL 0-0.8 27 Abs Eosinophils 0.2 10^3/uL 0-0.6 27 Abs Basophils 0 10^3/uL 0-0.2 27 Abs Nucleated RBC 0 10^3/uL 27 Granulocyte % 53.1 % 38-83 27 Lymphocyte % 36.6 % 25-47 27 Monocyte % 6.7 % 1-9 27 Eosinophil % 3.0 % 0-6 27 Basophil % 0.6 % 0-2 27 Nucleated Red Blood Cells % 0 27 Surgical Pathology 11/05/2013 S RUN DATE: <SEE NOTE> Surgical Pathology 11/05/2012 S RUN DATE: <SEE NOTE> Surgical Pathology 07/02/2012 S RUN DATE: <SEE NOTE> Cytology 06/04/2012 Cy RUN DATE: <SEE NOTE> Laboratory test finding 05/17/2011 Ferritin 60 NG/ML 11.0-307 Lipid Profile 05/17/2011 Triglyceride 87 mg/dL 40-200 (Trig/Chol/HDL) Cholesterol 242 mg/dL High Less Than 200 39 High Density Lipoprotein 65 mg/dL High 40-60 40 Cholesterol/HDL Ratio 3.72 AVERAGE 1-4.44 Low Density Lipoprotein 160 mg/dL High Less Than 100 41 CBC Auto Diff 05/17/2011 White Blood Count 5.4 CUMM 4.8-10.8 Red Cell Count 4.63 CUMM 4.2-5.4 Hemoglobin 14.5 g/dL 12.0-16.0 Hematocrit 43 % 35-47 Mean Corpuscular Volume 94 um3 79-97 Mean Corpuscular Hemoglob 31 pg 27-31 Mean Corpuscular HGB Cone 34 g/dL 32-36 Redcell Distribution WDTH 14 % 10.5-15 Platelet Count 269 CUMM 150-450 Mean Platelet Volume 9.3 um3 7.4-10.4 Gran % 57.9 % 38-83 Lymph % 32.6 % 25-47 Mononuclear % 6.7 % 1-9 Eosinophil % 2.2 % 0-6 Basophil % 0.6 % 0-2 Abs Lymphs 1.8 1.0-4.8 Abs Mononuclear 0.4 0-0.8 Absolute Neutrophil Count 3.1 1.5-7.7 Abs Eosinophils 0.1 0-0.6 Abs Basophils 0 0-0.2 Laboratory test finding 05/17/2011 Vitamin B12 403 pg/mL 180-914 TSH 2.07 MIU/ML 0.34-5.60 Thyroxine Free 0.92 ng/dL 0.61-1.24 T3 Free 2.78 pg/mL 2.39-6.79 Insulin 9.5 mcIU/mL 2.6 - 24.9 42 Glucose 102 mg/dL High 70-100 Vitamin D, 25 Hydroxy 05/17/2011 25-Hydroxy Vitamin D2 <4.0 ng/mL () 25-Hydroxy Vitamin D3 40 ng/mL () 25-Hydroxy Vitamin D Total 40 ng/mL () 43 Laboratory test finding 03/21/2007 Estradiol < 20 pg/mL 44 FSH 33.58 MIU/ML 45 Progesterone 1.8 NG/ML 46 Laboratory test finding 03/07/2007 TSH 1.37 MIU/ML 0.34-5.60 47 Dhea Sulfate 42 g/dL 35.0-430.0 47, 48 Lipid Profile (Trig/Chol/HDL) 03/07/2007 Cholesterol 192 mg/dL Less Than 200 47, 49 Triglyceride 62 mg/dL 40-200 47 High Density Lipoprotein 56 mg/dL 40-60 47 Low Density Lipoprotein 124 mg/dL High Less Than 100 47, 50 Cholesterol/HDL Ratio 3.43 AVERAGE 1-4.44 47 Basic Metabolic Panel 03/07/2007 One Over Creatinine 1.11 47 Anion Gap 8.0 mmol/L 2-11 47, 51 BUN 15 mg/dL 6-24 47 Calcium 9.3 mg/dL 8.7-10.2 47 Chloride 105 mmol/L 101-111 47 Co2 (Carbon Dioxide) 25.0 mmol/L 22-32 47 Glucose 81 mg/dL 70-105 47 Potassium 5.0 mmol/L 3.5-5.0 47 Sodium 138 mmol/L 135-145 47 BUN/Creatinine Ratio 16.7 8-20 47 Creatinine 0.9 mg/dL 0.5-1.4 47 Laboratory test finding 03/07/2007 Estradiol 434.0 pg/mL 47, 52 FSH 29.20 MIU/ML 47, 53 Progesterone 11.3 NG/ML 47, 54 Testosterone Free & Total 03/07/2007 Testosterone,Free < 0.02 ng/dL 47, 55 Testosterone 32 ng/dL 14-76 47 Laboratory test finding 03/07/2007 Vitamin D, 25 Hydroxy 48.1 NG/ML 20- 100 47, 56 1 Because ethnic data is not always readily available, this report includes an eGFR for both -Americans and non- Americans. The National Kidney Disease Education Program (NKDEP) does not endorse the use of the MDRD equation for patients that are not between the ages of 18 and 70, are , have extremes of body size, muscle mass, or nutritional status, or are non- or non-. According to the National Kidney Foundation, irrespective of diagnosis, the stage of the disease is based on the level of kidney function: Stage Description GFR(mL/min/1.73 m(2)) 1 Kidney damage with normal or decreased GFR 90 2 Kidney damage with mild decrease in GFR 60-89 3 Moderate decrease in GFR 30-59 4 Severe decrease in GFR 15-29 5 Kidney failure <15 (or dialysis) 2 Acute inflammation: >10.00 3 Desirable <150 Borderline high 150-199 High 200-499 Very High >500 4 Desirable <200 Borderline high 200-239 High >239 5 Low <40 Desirable: 40-60 High: >60 6 Desirable: <100 mg/dL Near Optimal: 100-129 mg/dL Borderline High: 130-159 mg/dL High: 160-189 mg/dL Very High: >189 mg/dL 7 Because ethnic data is not always readily available, this report includes an eGFR for both -Americans and non- Americans. The National Kidney Disease Education Program (NKDEP) does not endorse the use of the MDRD equation for patients that are not between the ages of 18 and 70, are , have extremes of body size, muscle mass, or nutritional status, or are non- or non-. According to the National Kidney Foundation, irrespective of diagnosis, the stage of the disease is based on the level of kidney function: Stage Description GFR(mL/min/1.73 m(2)) 1 Kidney damage with normal or decreased GFR 90 2 Kidney damage with mild decrease in GFR 60-89 3 Moderate decrease in GFR 30-59 4 Severe decrease in GFR 15-29 5 Kidney failure <15 (or dialysis) 8 Because ethnic data is not always readily available, this report includes an eGFR for both -Americans and non- Americans. The National Kidney Disease Education Program (NKDEP) does not endorse the use of the MDRD equation for patients that are not between the ages of 18 and 70, are , have extremes of body size, muscle mass, or nutritional status, or are non- or non-. According to the National Kidney Foundation, irrespective of diagnosis, the stage of the disease is based on the level of kidney function: Stage Description GFR(mL/min/1.73 m(2)) 1 Kidney damage with normal or decreased GFR 90 2 Kidney damage with mild decrease in GFR 60-89 3 Moderate decrease in GFR 30-59 4 Severe decrease in GFR 15-29 5 Kidney failure <15 (or dialysis) 9 [id number] SEE RESULT BELOW Name: EAGLE FIGUEREDO : [address]: Afia Sheppard MD Acct: [id number] Unit: [id number] AGE: 75 Location: [facility] Re04/12/16 SEX: F Status: REG SD SPEC: [id number] ELIZABETH: 04/12/16-1235 [facility] DR: Afia Sheppard MD REQ: [id number] RECD: 04/12/16 STATUS: SOUT _ ORDERED: LEVEL III COMMENTS: [id number] FINAL DIAGNOSIS Soft tissue, right middle and ring fingers, excision: -- Ganglion cysts. PRE-OPERATIVE DIAGNOSIS Right middle and ring finger mass GROSS DESCRIPTION The specimen is received in formalin labeled, Excision of a Right Middle and Right Ring Finger Masses, and consists of two white-pink rubbery to fibrous irregular tissue fragments, which are entirely submitted in one cassette. Signed (signature on file) Ha Gonzalez MD 1422 END OF REPORT * ML=Testing performed at Main Lab DEPARTMENT OF PATHOLOGY, [address] [place] [address] Ha Gonzalez M.D. Director [facility] # [id number] 11 Because ethnic data is not always readily available, this report includes an eGFR for both -Americans and non- Americans. The National Kidney Disease Education Program (NKDEP) does not endorse the use of the MDRD equation for patients that are not between the ages of 18 and 70, are , have extremes of body size, muscle mass, or nutritional status, or are non- or non-. According to the National Kidney Foundation, irrespective of diagnosis, the stage of the disease is based on the level of kidney function: Stage Description GFR(mL/min/1.73 m(2)) 1 Kidney damage with normal or decreased GFR 90 2 Kidney damage with mild decrease in GFR 60-89 3 Moderate decrease in GFR 30-59 4 Severe decrease in GFR 15-29 5 Kidney failure <15 (or dialysis) 12 Desirable <150 Borderline high 150-199 High 200-499 Very High >500 13 Desirable <200 Borderline high 200-239 High >239 14 Low <40 Desirable: 40-60 High: >60 15 Desirable: <100 mg/dL Near Optimal: 100-129 mg/dL Borderline High: 130-159 mg/dL High: 160-189 mg/dL Very High: >189 mg/dL 16 Normal Range 180 to 914 Indeterminate Range 145 to 180 Deficient Range <145 17 Reference Range and Interpretation: TnI (ng/mL) Interpretation Less Than 0.03 ng/mL Not supportive of diagnosis of NE 0.03 - 0.50 ng/mL Indeterminate: suggest serial studies if clinically indicated. Greater than 0.5 ng/mL Consistent with diagnosis of NE 18 Reference Range and Interpretation: TnI (ng/mL) Interpretation Less Than 0.03 ng/mL Not supportive of diagnosis of NE 0.03 - 0.50 ng/mL Indeterminate: suggest serial studies if clinically indicated. Greater than 0.5 ng/mL Consistent with diagnosis of NE 19 Reference Range and Interpretation: TnI (ng/mL) Interpretation Less Than 0.03 ng/mL Not supportive of diagnosis of NE 0.03 - 0.50 ng/mL Indeterminate: suggest serial studies if clinically indicated. Greater than 0.5 ng/mL Consistent with diagnosis of NE 20 Because ethnic data is not always readily available, this report includes an eGFR for both -Americans and non- Americans. The National Kidney Disease Education Program (NKDEP) does not endorse the use of the MDRD equation for patients that are not between the ages of 18 and 70, are , have extremes of body size, muscle mass, or nutritional status, or are non- or non-. According to the National Kidney Foundation, irrespective of diagnosis, the stage of the disease is based on the level of kidney function: Stage Description GFR(mL/min/1.73 m(2)) 1 Kidney damage with normal or decreased GFR 90 2 Kidney damage with mild decrease in GFR 60-89 3 Moderate decrease in GFR 30-59 4 Severe decrease in GFR 15-29 5 Kidney failure <15 (or dialysis) 21 Please note: The following may produce a false positive D Dimer test: - Rheumatoid factor greater than 60 IU/ml - Plasma hemoglobin greater than 0.05 gm/dl - Bilirubin greater than 50 mg/dl - Lipids greater than 1000 mg/dl - FDP greater than 20 ug/ml 22 Because ethnic data is not always readily available, this report includes an eGFR for both -Americans and non- Americans. The National Kidney Disease Education Program (NKDEP) does not endorse the use of the MDRD equation for patients that are not between the ages of 18 and 70, are , have extremes of body size, muscle mass, or nutritional status, or are non- or non-. According to the National Kidney Foundation, irrespective of diagnosis, the stage of the disease is based on the level of kidney function: Stage Description GFR(mL/min/1.73 m(2)) 1 Kidney damage with normal or decreased GFR 90 2 Kidney damage with mild decrease in GFR 60-89 3 Moderate decrease in GFR 30-59 4 Severe decrease in GFR 15-29 5 Kidney failure <15 (or dialysis) 23 Serologic response to B. burgdorferi infection is not detected, but cannot rule out early infection during which low or undetectable antibody levels to B. burgdorferi may be present. If clinically indicated, a new serum specimen should be submitted in 7-14 days. Test Performed by: [facility] - [address] [address] Tele Tech: Alexis Gagnon III, M.D. 24 Acute inflammation: >10.00 25 Test Performed by: [address] [address] Tele Tech: Alexis Gagnon III, M.D. 26 Interpretation: 51-80 ng/mL (increased risk of hypercalciuria) -- REFERENCE VALUE -- 25-HYDROXY D TOTAL (D2+D3) Optimum levels in the healthy population are 20-50, patients with bone disease may benefit from higher levels within this range. Test Performed by: [facility] - [address] [address] Tele Tech: Alexis Gagnon III, M.D. 27 PT IS FASTAING 28 Desirable <150 Borderline high 150-199 High 200-499 Very High >500 29 Desirable <200 Borderline high 200-239 High >239 30 Low <40 Desirable: 40-60 High: >60 31 Desirable <100 Near Optimal 100-129 Borderline high 130-159 High 160-189 Very High >189 32 PT IS FASTAING 33 PT IS FASTAING 34 Because ethnic data is not always readily available, this report includes an eGFR for both -Americans and non- Americans. The National Kidney Disease Education Program (NKDEP) does not endorse the use of the MDRD equation for patients that are not between the ages of 18 and 70, are , have extremes of body size, muscle mass, or nutritional status, or are non- or non-. According to the National Kidney Foundation, irrespective of diagnosis, the stage of the disease is based on the level of kidney function: Stage Description GFR(mL/min/1.73 m(2)) 1 Kidney damage with normal or decreased GFR 90 2 Kidney damage with mild decrease in GFR 60-89 3 Moderate decrease in GFR 30-59 4 Severe decrease in GFR 15-29 5 Kidney failure <15 (or dialysis) 35 RUN DATE: 11/06/13 [facility] LAB LIVE PAGE 1 RUN TIME: [address] [place], [place] [address] Specimen Inquiry Name: EAGLE FIGUEREDO : [address]: Afia Sheppard MD Acct: [id number] Unit: [id number] AGE: 73 Location: [facility] Re11/05/13 SEX: F Status: REG [facility] SPEC: [id number] ELIZABETH: 11/05/13- SUBM DR: Afia Sheppard MD REQ: [id number] RECD: 11/05/13-1556 STATUS: SOUT _ ORDERED: LEVEL I FINAL DIAGNOSIS Wrist, left, hardware removal: Foreign body (orthopedic hardware) as described below (Gross diagnosis). PRE-OPERATIVE DIAGNOSIS Left distal radius healing fracture with one failing painful screw. GROSS DESCRIPTION The specimen is received fresh labeled Eagle Figueredo, Screw Left Wrist and consists of a 2.0 x 0.2 cm. silver metallic, threaded, Jose Juan headed screw. Per established hospital medical staff protocol no tissue is submitted. Gross only. Signed (signature on file) Marya Lopez MD 1623 END OF REPORT * ML=Testing performed at Main Lab DEPARTMENT OF PATHOLOGY, [address] [place] [address] Ha Gonzalez M.D. Director [facility] # [id number] RUN DATE: 11/07/12 [facility] LAB LIVE PAGE 1 RUN TIME: [address] [place] [address] Specimen Inquiry Name: EAGLE FIGUEREDO : [address]: Awais Johnson MD Acct: [id number] Unit: [id number] AGE: 72 Location: [facility] Re11/05/12 SEX: F Status: REG REF SPEC: [id number] ELIZABETH: 11/05/12- SUBM DR: Awais Johnson MD REQ: [id number] RECD: 11/05/121678 STATUS: NATHANAEL BULLARD DR: Umesh Cardenas MD _ ORDERED: LEVEL IV FINAL DIAGNOSIS Colon, hepatic flexure, biopsy: A. Tubular adenoma. B. No high grade dysplasia or malignancy. CLINICAL HISTORY Routine screening - no symptoms, usual bowel habit - ever day with no blood - appy age 26 POST-OPERATIVE DIAGNOSIS Polyp - resected and tattooed GROSS DESCRIPTION The specimen is received in formalin labeled Eagle Krishnamurthy, Hepatic Flexure Polyp and consists of a lamar, soft tissue fragment measuring 0.5 x 0.3 x 0.2 cm. Submitted entirely, one cassette. Signed (signature on file) Ha Gonzalez MD 0760 END OF REPORT * ML=Testing performed at Main Lab DEPARTMENT OF PATHOLOGY, [facility] [employer] [place], [place] [address] Ha Gonzalez M.D. Director [facility] Permit #[id number] RUN DATE: 07/03/12 [facility] LAB LIVE PAGE 1 RUN TIME: 949 [facility] [address] [place], [place] [address] Specimen Inquiry Name: EAGLE FIGUEREDO : [address]: Ronald JOHN, Umesh Lopez Acct: [id number] Unit: [id number] AGE: 71 Location: [facility] Re07/02/12 SEX: F Status: REG REF SPEC: [id number] ELIZABETH: 07/02/12- SUBM DR: Cassia JOHN,Nikole Bain REQ: [id number] RECD: 07/02/12 STATUS: NATHANAEL BULLARD DR: Ronald JOHN,Umesh Lopez _ ORDERED: LEVEL IV FINAL DIAGNOSIS Breast, left, stereotactic core biopsies: A. Fragments of benign senescent fibroadenoma with associated dystrophic calcifications. B. No evidence of neoplasia identified. PRE-OPERATIVE DIAGNOSIS Left breast calcifications. GROSS DESCRIPTION The specimen is received in formalin labelled Eagle Figueredo, Stereotactic Breast Biopsy Left, and consists of multiple lamar-watson, yellow, and brown-red, soft tissue fragments and clot measuring 2.5 x 2.2 x 0.5 cm. in aggregate. Submitted entirely, one cassette. Signed (signature on file) Ha Gonzalez MD 1523 END OF REPORT * ML=Testing performed at Main Lab DEPARTMENT OF PATHOLOGY, [facility] [place] [address] Ha Gonzalez M.D. Director [facility] Permit #[id number] RUN DATE: 06/05/12 [facility] LAB LIVE PAGE 1 RUN TIME: 1433 [facility] [address] [place], [place] [address] Specimen Inquiry Name: EAGLE FIGUEREDO : [address]: Kayla Gonzales NP Acct: [id number] Unit: [id number] AGE: 71 Location: [facility]: 06/04/12 SEX: F Status: REG REF SPEC: [id number] ELIZABETH: 06/04/12 [facility] DR: Kayla Gonzales NP REQ: [id number] RECD: 06/05/12 STATUS: NATHANAEL BULLARD DR: Ronald JOHN,Umesh Lopez _ ORDERED: IMAGE ANALYSIS Negative for Intraepithelial lesion or Malignancy A. Ectocervical/Endocervical Specimen Adequacy: Satisfactory of evaluation Transformation zone component cannot be definitely identified due to presence of atrophy or other hormonal changes Patient Information: HPV: Thin Layer Pap Test w/reflex to high risk HPV DNA testing when ASCUS Actual Specimen Date: 06/04/12 LMP If Unknown: 1992 Cautery: N IUD: N ?: N Post Menopausal?: Y Hysterectomy?: N Lesion, grossly demonstrate: N Radiation Y/N? N Previous Abnormal Pap Smears?:N Signed (signature on file) Amie Thompson, [place] (ASCP) 06/05/12 1433 This Pap test was evaluated with the assistance of the [employer] Test Imaging System. Due to cytologic findings at the business mgr microscope, comprehensive manual rescreening by a Line Tender may be required. The Pap Smear is a screening test designed to aid in the detection of premalignant and malignant conditions of the uterine cervix. It is not a diagnostic procedure and should not be used as the sole means of detecting cervical cancer. Both false- positive and false- negative reports do occur. Depending on your risk status, a Pap smear shoudl be obtained and evaluated every 1-3 years. END OF REPORT * ML=Testing performed at Main Lab DEPARTMENT OF PATHOLOGY, [address] [place] [address] Ha Gonzalez M.D. Director [facility] Permit #[id number] CHOLESTEROL INTERPRETATION: Desirable: Less than 200 MG/DL Borderline-High Risk: 200-239 MG/DL High-Risk: 240 MG/DL and over 40 HDL INTERPRETATION: Undesirable: High Risk: Less than 40 MG/DL Desirable: Low Risk: Greater than 60 MG/DL 41 LDL INTERPRETATION: Low Risk Optimal Level: LDL Less than 100 MG/DL Near or Above Optimal: LDL 100-129 MG/DL Borderline High Risk: LDL 130-159 MG/DL High Risk: LDL 160-189 MG/DL Very High Risk: LDL Greater than 189 MG/DL 42 Test Performed by: [facility] Dpt of Lab Med and Pathology [address] [place] [address] Tele Tech: Alexis Gagnon III, M.D. 43 -- REFERENCE VALUE -- 25-HYDROXY D TOTAL (D2+D3) Optimum levels in the normal population are 25-80 Test Performed by: [facility] Dpt of Lab Med and Pathology [address] [place] [address] Tele Tech: Alexis Gagnon III, M.D. 44 EXPECTED RESULTS (pg/ml) MALES 20-75 POSTMENOPAUSAL FEMALES 20-88 NON FEMALES Mid-Follicular Phase 24-114 Periovulatory 62-534 Mid Luteal Phase 80-273 45 NORMAL RANGE MALES 1 - 20 NORMALLY MENSTRUATING FEMALES - Follicular Phase 3 - 9 - Mid-Cycle Peak 4 - 23 - Luteal Phase 1 - 6 POSTMENOPAUSAL FEMALES 16 114 . 46 FEMALE REFERENCE RANGES FOR Progesterone: Follicular phase.......0.3 - 1.5 ng/ml Mid-luteal phase.......5.2 - 18.5 ng/ml Postmenopausal.........< 0.8 ng/ml 1st trimester.........4.7 - 50.0 ng/ml 2nd trimester.........19.4 - 45.3 ng/ml . 47 FASTING 48 TEST PERFORMED BY: [facility]. [address] [place] [id number] 49 Classification: Desirable . 50 CALCULATED LDL APPROXIMATES THE VALUE OF A DIRECT LDL MEASUREMENT. Classification: Near or above optimal . 51 Anion gap measurement may be of limited value in the presence of any alkalosis, especially in a combined acid base disorder. . 52 EXPECTED RESULTS (pg/ml) MALES 20-75 POSTMENOPAUSAL FEMALES 20-88 NON FEMALES Mid-Follicular Phase 24-114 Periovulatory 62-534 Mid Luteal Phase 80-273 53 NORMAL RANGE MALES 1 - 20 NORMALLY MENSTRUATING FEMALES - Follicular Phase 3 - 9 - Mid-Cycle Peak 4 - 23 - Luteal Phase 1 - 6 POSTMENOPAUSAL FEMALES 16 114 . 54 FEMALE REFERENCE RANGES FOR Progesterone: Follicular phase.......0.3 - 1.5 ng/ml Mid-luteal phase.......5.2 - 18.5 ng/ml Postmenopausal.........< 0.8 ng/ml 1st trimester.........4.7 - 50.0 ng/ml 2nd trimester.........19.4 - 45.3 ng/ml . 55 REFERENCE RANGE FOR TESTOSTERONE FREE MALES: 20-49 YRS . . . . . 0.95-4.30 NG/DL > OR=50 YRS . . . 0.80-3.50 NG/DL FEMALES: OVULATING . . . . UP TO 0.38 NG/DL POSTMENOPAUSAL . . UP TO 0.18 NG/DL 56 INTERPRETIVE GUIDELINES FOR VITAMIN D (25-HYDROXY): >100 NG/ML (>250 NMOL/L) . . . POTENTIAL TOXICITY 32-100 NG/ML (80-250 NMOL/L) . SUFFICIENCY 20-32 NG/ML (50-80 NMOL/L) . . MILD INSUFFICIENCY 10-20 NG/ML (25-50 NMOL/L) . . MODERATE INSUFFICIENCY 7-10 NG/ML (17.5-25 NMOL/L) . MARKED INSUFFICIENCY <7 NG/ML (<17.5 NMOL/L) . . . DEFICIENCY NOTE: RANGES OBSERVED IN SELECTED POPULATIONS VARY CONSIDERABLY AND A SIGNIFICANT PORTION OF ASYMPTOMATIC PERSONS, PARTICULARLY ELDERLY AND THOSE WITH LIMITED SUN EXPOSURE WILL HAVE VITAMIN D INSUFFICIENCY ASSOCIATED WITH ELEVATED INTACT PARATHYROID HORMONE (INTACT PTH) LEVELS AND ELEVATED RISK OF OSTEOPOROSIS. SERUM LEVELS ABOVE 32 NG/ML (80 NMOL/L) HAVE BEEN RECOMMENDED FOR OPTIMIZING BONE HEALTH WHEREAS LEVELS BELOW 10 NG/ML (25 NMOL/L) ARE ASSOCIATED WITH A SIGNIFICANT RISK OF OSTEOMALACIA. TEST PERFORMED BY: [employer] [id number] [place] [address] NOTE: NEW REFERENCE RANGE OF 11/14/06 Procedures Date CPT Code Description Status 08/24/2017 75622 EKG Tracing & Interpretation Completed 10/18/2016 Mammogram Completed 09/15/2016 12569 EKG Tracing & Interpretation Completed 06/30/2016 03435 EKG Tracing & Interpretation Completed 04/12/2016 58458 Excision Tendon Sheath Ganglion /Or Joint Capsule Hand Completed Or Finger 04/12/2016 08476 Excision Tendon Sheath Ganglion /Or Joint Capsule Hand Completed Or Finger 04/12/2016 68826 Excision Tendon Sheath Ganglion /Or Joint Capsule Hand Completed Or Finger 04/12/2016 30085 Excision Tendon Sheath Ganglion /Or Joint Capsule Hand Completed Or Finger 12/22/2015 Colonoscopy Completed 12/17/2015 65699 Nerve Conduction 05-06 Studies Completed 12/17/2015 47644 Needle Electromyography Complete, Five Or More Muscles Completed Studied 11/03/2015 07582 EKG Tracing & Interpretation Completed 10/15/2015 Mammogram Completed 06/24/2015 40607 ECHO Transthoracic, Real-Time 2D With Doppler And Color Completed Flow 06/23/2015 66642 EKG Tracing & Interpretation Completed 06/18/2015 02167 Holter Monitoring 24 HR New Completed 06/15/2015 22845 EKG, Interpretation Only Completed 06/15/2015 72814 Stress Test Supervsn W/Out I/R Completed 06/15/2015 35555 Treadmill Interp/Report Only Completed 12/02/2014 05100 Nerve Conduction 03-04 Studies Completed 12/02/2014 72028 Needle Electromyography Complete, Five Or More Muscles Completed Studied 07/10/2014 53385 Inject/Drain Joint/Bursa Major Completed 07/10/2014 92116 Inject/Drain Joint/Bursa Major Completed 05/29/2014 Mammogram Completed 02/13/2014 42867 Rad Shoulder Comp, Min. 2 Views Completed 12/10/2013 Bone Mineral Density Test Completed 11/05/2013 94120 Removal Implant Deep Wire,Screw Nail,Chet Or Plate Completed 10/31/2013 77574 Rad Exam; Wrist, Comp, Min 3 Views Completed 09/26/2013 87404 Rad Exam; Wrist, Comp, Min 3 Views Completed 09/17/2013 71051 Open TX Distal Radial Intra-Articular FX W Fixation Of Completed 3 Or More 01/24/2013 35744 Rad Shoulder Comp, Min. 2 Views Completed 01/23/2013 Mammogram Completed 12/20/2012 02410 Treadmill Interp/Report Only Completed 12/20/2012 27019 Stress Test Supervsn W/Out I/R Completed 12/11/2012 85689 Holter Monitor Review (24 hr)dr biggs & dru Completed only 11/05/2012 Colonoscopy Completed 08/28/2012 Bone Mineral Density Test Completed 07/02/2012 Mammogram Completed 06/25/2012 Mammogram Completed 06/26/2002 Colonoscopy Completed Encounters Type Date Location Provider CPT E/M Dx Office Visit 02/28/2017 [facility] Umesh Cardenas, 97530 Z00.01 10:30a [facility] M54.16 I47.1 G60.8 Office Visit 02/21/2017 9:30a [facility] [address] M54.16 G60.8 G56.03 Office Visit 01/10/2017 10:00a [facility] Jenny Conner, 13886 G47.33 [facility] JERI RN, [facility]- M25.561 R53.83 Office Visit 12/13/2016 1:40p [facility] Umesh Lopez 43266 R42 Mahesh Cardenas M.D.,FACP Office Visit 10/20/2016 9:30a [facility] [address] M54.14 G60.8 G60.9 Office Visit 09/15/2016 1:40p [facility] Kamron Estrada, 54940 I47.1 [facility] Office Visit 09/06/2016 8:30a [facility] Umesh Cardenas, 87705 Z01.810 - [facility] T84.022S I47.1 N95.1 Office Visit 08/18/2016 2:30p [facility] [address] M54.2 M54.14 Office Visit 06/30/2016 1:40p [facility] [place] [address] I47.1 [facility] Office Visit 03/31/2016 2:30p Orthopedic Services Afia Sheppard 61095 M67.441 Of [place] Crock[place] Office Visit 03/17/2016 2:00p [facility] [place] [address] Z23 - Mahesh R22.9 Office Visit 12/21/2015 9:30a [facility] [address] M54.2 G60.8 M54.16 Office Visit 11/03/2015 11:30a [facility] Umesh Cardenas, 20844 Z01.810 [facility] Mahesh Crockett,FACP M13.812 M54.2 Office Visit 10/29/2015 9:30a [facility] [address] G60.8 [facility] R26.89 M54.2 M54.16 R26.81 Office Visit 10/23/2015 8:30a [facility] Jenny Conner, 94391 G47.33 Services [facility] BLAKE WILCOX, [facility]- Office Visit 08/04/2015 10:15a [facility] Jenny Conner, 99625 G47.33 [facility] BLAKE WILCOX, [facility]- Office Visit 07/24/2015 8:20a [facility] [place] [address] I47.1 [facility] Office Visit 07/23/2015 8:30a [facility] Umesh Cardenas, 01608 R53.83 - Melissa Baker M.D.,FACP Office Visit 06/23/2015 9:00a [facility] [place] [address] I47.1 [facility] F41.9 G47.33 Office Visit 06/16/2015 10:30a [facility] - Umesh Cardenas, 12511 I47.1 Mahesh Crockett,FACP Office Visit 06/15/2015 12:45p [facility], Carin Marmolejo, 25950 R07.9 Hospitalists M.DPraveena I47.1 G47.33 M79.7 Office Visit 06/14/2015 12:44p [facility], Justino Estrella, 08841 R07.9 Hospitalists N.P. I47.1 G47.33 M79.7 Office Visit 06/03/2015 11:15a [facility] [place] [address] G60.8 G56.02 Office Visit 01/02/2015 11:40a [facility] Umesh Cardenas, 12349 427.0 - Tbjerson Baker M.D.,FACP Office Visit 10/07/2014 10:30a [facility] [place] [address] 354.0 [facility] 356.8 784.0 Office Visit 07/10/2014 9:30a Orthopedic Services Afia Sheppard, 21121 715.11 Of [place] Crockett 726.10 715.31 Office Visit 06/17/2014 9:00a [facility] [place] [address] 715.11 - [place] Office Visit 06/17/2014 10:00a [facility] Jenny Conner, 55464 327.23 [facility] BLAKE WILCOX, RECEIVER DISPATCHER- Office Visit 06/03/2014 9:00a [facility] Kae Harmon, 59233 300.00 - [place] N.P. 727.1 782.0 V72.31 V76.10 V76.2 Office Visit 05/20/2014 10:00a [facility] [place] [address] 300.00 [place] Office Visit 04/16/2014 1:30p [facility] [place] [address] 300.00 [place] Office Visit 04/02/2014 2:00p [facility] - Umesh Cardenas, 46136 715.09 Mahesh Crockett,FACP 780.79 Office Visit 02/13/2014 8:15a Orthopedic Services Afia Sheppard 40981 726.33 Of [place] Crockett 715.11 Office Visit 02/11/2014 11:50a [facility] Umesh Cardenas, 58436 715.09 - Mahesh Crockett,FACP 726.33 Office Visit 12/31/2013 12:30p [facility] Kae Harmon, N.P. 97504 726.33 - [place] 786.03 Office Visit 12/04/2013 8:50a [facility] Umesh Cardenas, 55266 V70.0 - Mahesh Crockett,FACP 726.19 733.01 785.1 Office Visit 09/12/2013 10:00a Orthopedic Services Afia Silver, 71822 813.42 Of [place] Cro[place] Office Visit 02/26/2013 3:00p [facility] Nurse Visit [place] 15408 380.4 - [place] Office Visit 01/24/2013 9:30a Orthopedic Services Ulices Mcrae M.D. 99269 726.10 Of [place] Office Visit 12/20/2012 8:24a [facility] S. 41127 785.1 Keira Wade 786.50 427.69 Office Visit 11/22/2012 3:30p [facility] Kae Harmon, N.P. 41590 785.1 - [place] 726.19 Office Visit 09/13/2012 9:00a [facility] Kae Harmon, N.P. 84289 380.4 - [place] 461.1 Office Visit 08/21/2012 8:30a [facility] Kae Harmon, N.P. 70828 V82.81 - [place] V76.51 356.8 Office Visit 04/17/2012 4:00p [facility] Kae Harmon, N.P. 76865 959.5 - [place] V04.81 Office Visit 12/13/2011 11:30a [facility] Kae Harmon, N.P. 42118 V43.65 - [place] 719.46 726.19 Office Visit 10/06/2011 2:40p [facility] Umesh Cardenas, 09319 466.0 - Mahesh Crockett,[facility] Office Visit 05/11/2011 1:20p DO Not Use Ground Support Equipment Fitter At Umesh Cardenas, 69984 780.79 Neelima Crockett,[facility] 311 268.9 737.39 V77.91 Office Visit 03/04/2011 1:00p DO Not Use Ground Support Equipment Fitter At Umesh Cardenas, 68936 729.1 Neelima Crockett,FACP 737.39 784.0 564.1 V03.82 V04.89 V05.8 Plan of Care Future Appointment(s):03/06/2018 10:20 am - Umesh Cardenas M.D.,FACP at [facility] - [place]25/17/2018 10:30 am - Jenny Conner DNP, RN, RECEIVER DISPATCHER -BC at [facility]08/24/2017 - [place] Estrada, DO FACCI47.1 Supraventricular tachycardiaFollow up:1 year
[2017-09-17 15:48] VITALS: BP 112/69
[2017-09-17] MEDS ORDERED: diPHENhydraMINE PO* 50 MG PO ONE (16:02)
[2017-09-17] MEDS ORDERED: Famotidine TAB* 20 MG PO ONE (16:03)
[2017-09-17] MEDS ORDERED: predniSONE TAB* 20 MG PO ONE (16:03)
--- NOTE | 2017-09-17 16:42 | UC ---
Royer Ivey Natalie, scribed for Freddie Gabriel MD on 09/17/17 at 1631 . Skin Complaint HPI - HPI Summary HPI Summary: The pt is a 77 y/o F presenting to [facility] c/o hives that started this morning when the pt woke up. The rash started on her mid-sternal chest, and has moved to her abdomen and bilateral underarms, and is now moving to her forearms. The rash is itchy, but not painful. The pain is rated 4/10. 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 The pt denies difficulty breathing. She has not recently changed detergents, and the clothes she has been wearing have been worn without this happening before. The pt states she has been under a lot of stress recently. - History of Current Complaint Chief Complaint: UCSkin Time Seen by Provider: 09/17/17 15:55 Stated Complaint: RASH,ITCHING AND BURNING Hx Obtained From: Patient Hx Last Menstrual Period: post menopausre Onset/Duration: Sudden Onset, Lasting Hours, Still Present Onset Severity: Moderate Current Severity: Moderate Pain Intensity: 4 Pain Scale Used: 0-10 Numeric Location: Diffuse - chest and abd, left and right underarms Character: Hives, Redness Aggravating Factor(s): Nothing Alleviating Factor(s): Nothing Associated Signs & Symptoms: Negative: Difficulty Breathing - Allergy/Home Medications Allergies/Adverse Reactions: Allergies Allergy/AdvReac Type Severity Reaction Status Date / Time No Known Allergies Allergy Verified 03/12/17 21:23 Home Medications: Home Medications Gabapentin CAP(*) [Neurontin 300 CAP(*)] 300 mg PO BID 09/17/17 [History Confirmed 09/17/17] Review of Systems Skin: Other - itchy hives on chest, arms, and abd Respiratory: Other - NEGATIVE: difficulty breathing All Other Systems Reviewed And Are Negative: Yes PMH/Surg Hx/FS Hx/Imm Hx - Surgical History Surgical History: Yes Surgery Procedure, Year, and Place: LUMBAR [id number], THROWN FROM A HORSE 50 YEARS. BILAT CATARACT SURGERY NOVEMBER 2012, BILATERAL KNEE REPLACEMENTS. HAMMERTOES AND BUNION SURGERYS. BTL [facility]. [facility]. LEFT WRIST 2013 [facility]. TUBAL LIGATION. LT BREAST BIOPSY. TONSILS REMOVED A CHILD - Family History Known Family History: Positive: Hypertension - Social History Alcohol Use: Daily Substance Use Type: None Smoking Status (MU): Never Smoked Tobacco Type: Cigarettes Have You Smoked in the Last Year: No When Did the Patient Quit Smoking/Using Tobacco: Over 50 years ago - Immunization History Most Recent Influenza Vaccination: never Most Recent Tetanus Shot: 2011 Most Recent Pneumonia Vaccination: 2011 Physical Exam Triage Information Reviewed: Yes Appearance: Well-Appearing, No Pain Distress Vital Signs: Initial Vital Signs Temp 98.1 F 09/17/17 15:40 Pulse 71 09/17/17 15:40 Resp 16 09/17/17 15:40 BP 112/69 09/17/17 15:40 Pulse Ox 99 09/17/17 15:40 Vital Signs Reviewed: Yes Eyes: Positive: Other: - EOMI, SOULEYMANE ENT: Positive: Normal ENT inspection Neck: Positive: Supple, Nontender Respiratory: Positive: Other: - CTA, breath sounds present Cardiovascular: Positive: RRR Abdomen Description: Positive: Nontender, Soft Bowel Sounds: Positive: Present Musculoskeletal Exam: Normal Musculoskeletal: Positive: Strength Intact, ROM Intact Neurological: Positive: Other: - normal, sensory/motor intact, A&O x3 Psychological: Positive: Other: - affect/mood appropriate Skin: Positive: Other - warm, dry, hives on chest, blanched, raised Course/Dx - Course Course Of Treatment: Medications reviewed. Allergies noted. NO DIFFICULTY WITH BREATHING, SPEECH OR SWALLOWING. WILL TREAT WITH PO MEDS. DISCUSSED GOING TO ED OR CALLING 911 IF SX WORSEN. - Diagnoses Provider Diagnoses: ALLERGIC REACTION Discharge - Sign-Out/Discharge Documenting (check all that apply): Discharge - Discharge Plan Condition: Stable Disposition: HOME Discharge Disposition Comment: The pt will be discharged home. Prescriptions: Famotidine TAB* [Pepcid 20 MG TAB*] 20 mg PO BID PRN #10 tab PRN Reason: Allergy Symptoms predniSONE TAB* [Deltasone TAB*] 40 mg PO DAILY #8 tab Patient Education Materials: General Allergic Reaction (ED) Referrals: Umesh Cardenas MD [Primary Care Provider] - Additional Instructions: FOLLOW UP WITH YOUR DOCTOR. TAKE BENADRYL 25MG EVERY 4 HOURS OR 50MG EVERY 6 HOURS NEEDED. TAKE PEPCID 20MG TWICE A DAY NEEDED. TAKE THE PREDNISONE DIRECTED NEEDED. GO TO THE EMERGENCY DEPARTMENT FOR ANY WORSENING OF YOUR CONDITION OR QUESTIONS OR CONCERNS. - Billing Disposition and Condition Condition: STABLE Disposition: HOME The documentation as recorded by the Royer amato Natalie accurately reflects the service I personally performed and the decisions made by me, Freddie Gabriel MD.
== END 2017-09-17 16:22 | disposition home or self-care (01) ==
LOC: UCEAST 15:31
DX: T78.40XA Allergy, unspecified, initial encounter (principal); L50.9 Urticaria, unspecified; X58.XXXA Exposure to other specified factors, initial encounter; Z87.891 Personal history of nicotine dependence
CPT/HCPCS: 99203; A9270-GY; G0463; J7512

== ENCOUNTER 2018-01-28 13:04 | Emergency (ER) | payer MEDICARE ==
--- OUTSIDE RECORDS SUMMARY | 2018-01-28 13:11 | XMS REPORT ---
:1940 External Reference #:[id number] Author Organization [facility] Address [address] [facility] [place] [address] [place] [address] Phone [phone] Care Team Providers Name Role Phone Umesh Cardenas MD Care Team Information Marketing Representative Unavailable Umesh Cardenas MD Primary Care Physician Unavailable Payers Type Date Identification Numbers Payment Provider Subscriber Commercial Policy Number: [id number] Amer Prog/Todays Options Eagle Figueredo PayID: [id number] [address] [address] Attn: [place] [address] Medigap Part B Expires: 2012 Policy Number: [facility] Eagle Figueredo [id number] Healthcare PayID: [id number] [address] [place] [address] Medigap Part B Effective: 2007 Policy Number: [id number] Medicare [facility] Expires: 2012 PayID: [id number] [address] [place] [address] Advance Directives Type Date Description Status Comment Other Directive 09/20/2017 Health Care Proxy Current and Verified Problems Date Description Provider Status Onset: 05/11/2011 Depressive disorder Genesis Brandt M.D.,FACP Onset: 12/13/2016 Paroxysmal supraventricular Genesis Brandt tachycardia Keira,FACP Onset: 05/11/2011 Kyphoscoliosis and scoliosis Genesis Brandt M.D.FACP Onset: 11/28/2013 Hyperlipidemia Genesis Brandt M.D.,FACP Onset: 04/02/2014 Primary fibromyalgia syndrome Genesis Brandt M.D.,FACP Onset: 06/17/2014 Obstructive sleep apnea of adult Jenny JERI Conner, RN, Active [employer] Onset: 06/03/2015 Idiopathic peripheral neuropathy Harjit Gregg [...] lumbosacral Harjit Gregg MD Active neuritis Onset: 11/16/2017 Bilateral carpal tunnel syndrome Harjit Gregg MD Active Onset: 02/11/2014 Osteoarthritis Umesh Cardenas, Inactive Keira,FACP Inactive: 11/03/2015 Onset: 10/08/2015 Allergic arthritis of the Umesh Cardenas M.D.,FACP Inactive shoulder region Inactive: 11/03/2015 Family History Date Family Member(s) Problem(s) Comments General Diabetes General Heart Disease : (age 65 Years) Father due to [place] : (age 85 Years) Mother due to CHF Children 2 Siblings 2 1 now First Sister due to Cancer, Ovarian () Second Sister Stroke due to PFO Second Sister Cancer, Breast Social History Type Date Description Comments Marital Status Lives With Occupation 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 [employer] Cigarette Use Never Smoked Cigarettes ETOH Use Consumes 1 glass of wine per day Smoking Patient has never smoked Recreational Drug Use Denies Drug Use Daily Caffeine Consumes on average 2 cups of half caff regular coffee per day Exercise Type/Frequency Riley Chi General Hx Text 2 children Allergies, Adverse Reactions, Alerts Date Description Reaction Status Severity Comments 09/12/2013 NKDA active 03/04/2011 NKDA inactive Medications Medication Date Status Form Strength Qnty SIG Indications Ordering Provider Gabapentin 09/20 Active Capsules 100mg 240ca 4 caps by G60.8 ps mouth twice Marysol, a day.. Bisoprolol 07/02 Active Tablets 5mg 45tab 1/2 by mouth Umesh s every day John Cardenas M.D.,FACP Cymbalta 04/[address] 60mg 90cap 1 by mouth Part s every day John Cardenas M.D.,FACP Lorazepam Active Tablets 0.5mg 30tab 1-2 by mouth / s every 8 John Cardenas, hours as Keira,RM needed Weskan 3 Active Capsules daily Unknown / Vitamin B-12 Active daily Unknown / Probiotic Active Capsules daily Unknown Formula / Turmeric Active four daily Unknown / Holy Basil Active Homeopathic Unknown / prn Vitamin D Active Capsules 1 by mouth Unknown (Cholecalciferol / every day ) Magnesium Active Tablets 1 by mouth Unknown / every day Wild Yam Active Capsules 100mg 1 cap po bid Unknown / Calcium Active Tablets 1500mg Unknown /0000 Zinc Active Capsules 30mg 1 by mouth Unknown /0000 every day Gabapentin 10/20 Hx Capsules 100mg 240ca Take 1 G60.8 ps Capsule Four Marysol, - Times A Day 09/20 For 2 Weeks Then Increase To Take 2 Capsules By Mouth Four Times A Day Black Cohosh 09/06 Hx Capsules 160mg ( not taking) John Cardenas - Keira,FACP 09/19 Baclofen 08/18 Hx Tablets 10mg 90tab Take 1/2 To M54.14 Bailee Awad s 1 Tablet By Janeth, - Mouth AT M.D. 09/20 Night Ultracet 04/12 Hx Tablets 37.5-325m 30tab 1-2 tabs by Afia g s mouth every Sheppard, - 4-6 hours as Keira 09/06 needed Diphenhydramine 07/23 Hx Tablets 25mg 1 tab in R53.83 Umesh evening to John Cardenas, - aid sleep M.D.,FACP 10/07 Metoprolol 06/23 Hx Tablets 25mg 60tab 1/2 by mouth I47.1 Kamron S. Succinate ER 24HR s daily at [facility], DO - bedtime FAC 07/02 Duloxetine HCL 04/[address] 60mg 30cap take one Part s capsule by John Cardenas, - mouth every M.D.,FACP Gabapentin 04/13 Hx Capsules 100mg 240ca Take Two ps Capsules By John Cardenas, - Mouth Four M.D.,[facility] 03/17 Times A Day Diltiazem HCL ER 12/18 Hx Caps ER 120mg 90cap take one 785.1 Umesh Coated Beads 24HR s capsule by John Cardenas, - mouth every M.D.,[facility] [id number] 04/02 Hx Capsules 500-50mg 60cap by mouth 715.09 s twice a day Francesca Rosales.DPraveena,[facility] 04/16 Voltaren 02/11 Hx Gel 1% 100g apply 2 gms 715.09 to elbow John Cardenas, - twice a day M.D.,[facility] 03/29 as needed Can also use 1-2 grams on fingers, feet as needed Glucosamine 02/11 Hx Tablets 1 tab by 715.09 Umesh Chondroitin mouth twice John Cardenas, Advanced - a day. M.DPraveena,FACP 04/[address] 12/31 Hx Tablets 500mg 28tab by mouth 726.[address] jacobsen twice a day Faustino, - with food x N.P. 02/11 Diltiazem HCL ER 12/04 Hx Caps ER 120mg 90cap 1 po qd 785.1 Umesh Beads 24HR s Francesca Rosales M.D.,[facility] 12/18 [place] [facility] 10/31 Hx Tablets 5-325mg 40tab 1-2 tab by Afia /2014 s mouth every Sheppard, - 4-6 hours as M.D. 12/04 needed pain /2013 Percocet 09/12 Hx Tablets 5-325mg 60tab take 1-2 s tabs by Silver, - mouth q4-6 M.D. 04/02 hours needed pain Azithromycin 10/05 Hx Tablets 250mg 6tabs 2 qd for 1 466.0 Umesh day, then 1 John Cardenas, - qd M.DPraveena,[facility] 12/12 Cheratussin ac 10/05 Hx Syrup 100-10mg/ 200ml 2 tsp po qid 466.0 5ML prn Francesca Rosales M.D.,[facility] 02/02 Cymbalta 03/[address] 60mg 30cap 1 by mouth Part s every day JAVED Morales - 04/13 Cyclobenzaprine 03/04 Hx Tablets 10mg 45tab one po tid Umesh s prn spasm Francesca Rosales M.D.,[facility] 04/16 Atenolol 03/04 Hx Tablets 25mg 90tab Take One 785.1 s Tablet By Jonh Cardenas, - Mouth Every M.DPraveena,[facility] Gabapentin 03/04 Hx Capsules 100mg 240ca take two ps capsules by JAVED Morales - mouth four 04/13 times a day /2014 Cephalexin Hx Tablets 250mg 20tab 1 po qid for Unknown /0000 s 5 days - 08/21 Augmentin Hx Tablets 875-125mg 20tab one by mouth Unknown /0000 s every 12 - hours for 11/22 Meloxicam Hx Tablets 7.5mg 30tab 1 by mouth Unknown /0000 s every day - 04/16 Tramadol HCL Hx Tablets 50mg 50tab 1/2 to 1 tab Umesh / s four times a John Cardenas, - day as MMendoza,[facility] 03/17 Vitamin D Hx 3000Iu One tab PO Unknown (Cholecalciferol /0000 daily ) - 03/30 Medications Administered in Office Medication Date Status Form Strength Qnty SIG Indications Ordering Provider Depomedrol Administered Injection Afia 80MG Jose Alfredo Sheppard M.D. Depomedrol Administered Injection Afia 80MG Jose Alfredo Sheppard M.D. Immunizations CPT Code Status Date Vaccine Lot # [id number] Given 10/08/2015 Pneumococcal Conjugate Vaccine 13 Valent For [id number] Intramuscular Use 48286 Given 04/17/2012 Tdap - Tetanus/Diptheria/Acellular Pertussis [id number] Given 03/23/2012 Fluzone Vaccine [id number] Given 03/04/2011 Zoster (Zostavax) [id number] 31910 Given 03/04/2011 Pneumonia Vaccine [id number] 37252 Given 08/16/2004 Td Toxoids Adsorbed For Use 7Yrs Or Older For Intramuscular Use 18735 Refused 05/11/2011 Influenza Virus 3Yrs & Over Vital Signs Date Vital Result Comment 01/25/2018 Height 64 inches 5'4" Weight 146.00 lb Heart Rate 64 /min BP Systolic Sitting 106 mmHg lue reg cuff BP Diastolic Sitting 60 mmHg lue reg cuff BP Systolic Standing 98 mmHg BP Diastolic Standing 60 mmHg Respiratory Rate 16 /min BMI (Body Mass Index) 25.1 kg/m2 Ejection Fraction 60-65% 06/24/2015 echo 01/18/2018 Height 64 inches 5'4" Weight 141.50 lb Heart Rate 64 /min BP Systolic Sitting 104 mmHg Lue reg cuff BP Diastolic Sitting 64 mmHg Lue reg cuff Respiratory Rate 16 /min O2 % BldC Oximetry 95 % On Ra BMI (Body Mass Index) 24.3 kg/m2 11/16/2017 Height 64 inches 5'4" Weight 143.12 lb Heart Rate 78 /min BP Systolic Sitting 120 mmHg BP Diastolic Sitting 84 mmHg BMI (Body Mass Index) 24.6 kg/m2 09/20/2017 Weight 142.00 lb Heart Rate 73 /min BP Systolic Sitting 110 mmHg BP Diastolic Sitting 60 mmHg Body Temperature 97.1 F O2 % BldC Oximetry 96 % 08/24/2017 Height 64 inches 5'4" Weight 142.00 [...] Test Date Test Result H/L Range Note CBC Auto Diff 09/26/2017 White Blood Count 6.8 10^3/uL 3.5-10.8 Red Blood Count 4.37 10^6/uL 4.0-5.4 Hemoglobin 14.1 g/dL 12.0-16.0 Hematocrit 42 % 35-47 Mean Corpuscular Volume 95 fL 80-97 Mean Corpuscular Hemoglobin 32 pg High 27-31 Mean Corpuscular HGB Conc 34 g/dL 31-36 Red Cell Distribution Width 14 % 10.5-15 Platelet Count 260 10^3/uL 150-450 Mean Platelet Volume 8.3 um3 7.4-10.4 Abs Neutrophils 4.1 10^3/uL 1.5-7.7 Abs Lymphocytes 1.8 10^3/uL 1.0-4.8 Abs Monocytes 0.6 10^3/uL 0-0.8 Abs Eosinophils 0.3 10^3/uL 0-0.6 Abs Basophils 0.1 10^3/uL 0-0.2 Abs Nucleated RBC 0 10^3/uL Granulocyte % 60.2 % 38-83 Lymphocyte % 25.7 % 25-47 Monocyte % 9.2 % High 0-7 Eosinophil % 4.0 % 0-6 Basophil % 0.9 % 0-2 Nucleated Red Blood Cells % 0.1 Laboratory test finding 09/26/2017 Erythrocyte Sed Rate 7 mm/Hr 0-40 Creatine Kinase(CK) 84 U/L 10-223 C Reactive Protein < 1.00 mg/L < 5.00 1 Comp Metabolic Panel 09/26/2017 Sodium 140 mmol/L 139-145 Potassium 4.3 mmol/L 3.5-5.0 Chloride 104 mmol/L 101-111 Co2 Carbon Dioxide 31 mmol/L 22-32 Anion Gap 5 mmol/L 2-11 Glucose 90 mg/dL 70-100 Blood Urea Nitrogen 23 mg/dL 6-24 Creatinine 0.75 mg/dL 0.51-0.95 BUN/Creatinine Ratio 30.7 High 8-20 Calcium 9.5 mg/dL 8.6-10.3 Total Protein 6.2 g/dL Low 6.4-8.9 Albumin 4.2 g/dL 3.2-5.2 Globulin 2.0 g/dL 2-4 Albumin/Globulin Ratio 2.1 1-3 Total Bilirubin 0.50 mg/dL 0.2-1.0 Alkaline Phosphatase 59 U/L 34-104 Alt 18 U/L 7-52 Ast 21 U/L 13-39 Egfr Non- 75.3 >60 Egfr 96.9 >60 2 Laboratory test finding 09/26/2017 Complement Total CH50 54 U/mL 30 - 75 3 Comp Metabolic Panel 03/13/2017 Sodium 138 mmol/L [...] Egfr Non- 66.3 >60 Egfr 85.2 >60 4 Laboratory test finding 03/13/2017 C Reactive Protein 18.94 mg/L High < 5.00 5 CBC No Diff 03/13/2017 White Blood Count [...] Lipid Profile (Trig/Chol/HDL) 02/24/2017 Triglycerides 73 mg/dL 6 Cholesterol 209 mg/dL 7 HDL Cholesterol 71.8 mg/dL 8 LDL Cholesterol 123 mg/dL 9 Basic Metabolic Panel 02/24/2017 Sodium 140 mmol/L 133-145 Potassium 4.2 mmol/L 3.5-5.0 Chloride 104 mmol/L 101-111 Co2 Carbon Dioxide 32 mmol/L 22-32 Anion Gap 4 mmol/L 2-11 Glucose 91 mg/dL 70-100 Blood Urea Nitrogen 19 mg/dL 6-24 Creatinine 0.82 mg/dL 0.51-0.95 BUN/Creatinine Ratio 23.2 High 8-20 Calcium 9.6 mg/dL 8.6-10.3 Egfr Non- 68.1 >60 Egfr 87.6 >60 10 CBC Auto Diff 12/13/2016 White Blood Count [...] Egfr Non- 75.5 >60 Egfr 97.1 >60 11 Laboratory test 04/12/2016 Surgical Pathology SEE RESULT BELOW 12, 13 finding CBC Auto Diff 10/30/2015 White Blood Count [...] 0-2 Nucleated Red Blood Cells % 0.1 Comp Metabolic Panel 10/30/2015 Sodium 139 mmol/L [...] Egfr Non- 70.3 >60 Egfr 90.4 >60 14 Lipid Profile (Trig/Chol/HDL) 09/25/2015 Triglycerides 49 mg/dL 15 Cholesterol 184 mg/dL 16 HDL Cholesterol 58.8 mg/dL 17 LDL Cholesterol 115 mg/dL 18 Laboratory test finding 09/23/2015 Vitamin B12 683 pg/mL 180-914 19 Laboratory test finding 06/16/2015 TSH (Thyroid Stim Horm) 2.76 ?IU/mL 0.34-5.60 T3 Total 0.77 ng/mL Low 0.87-1.78 Free T4 (Free Thyroxine) 0.82 ng/mL 0.61-1.12 Laboratory test finding 06/14/2015 Troponin-I (TnI) 0.00 ng/mL <0.03 20 Comp Metabolic Panel 06/14/2015 Sodium 137 mmol/L [...] Egfr Non- 65.7 >60 Egfr 84.5 >60 21 Laboratory test 06/14/2015 D Dimer Quantitative 321 ng/mL High Less Than 230 22 finding Magnesium 2.1 mg/dL 1.9-2.7 CBC Auto Diff 06/14/2015 White Blood Count [...] 0.1 Laboratory test finding 06/14/2015 Troponin-I (TnI) 0.03 ng/mL High <0.03 23 Laboratory test finding 06/14/2015 Troponin-I (TnI) 0.02 ng/mL <0.03 24 CBC Auto Diff 12/28/2014 White Blood Count [...] 0-2 Nucleated Red Blood Cells % 0.1 Comp Metabolic Panel 12/28/2014 Sodium 140 mmol/L [...] Egfr Non- 71.5 >60 Egfr 92.0 >60 25 Laboratory test finding 03/18/2014 Lyme Disease Serology Negative Negative 26 Erythrocyte Sed Rate 7 mm/Hr 0-40 C Reactive Protein < 0.10 mg/L < 5.00 27 Rheumatoid Factor <15 IU/mL <15 28 Vitamin D, 25 Hydroxy 12/16/2013 25-Hydroxy Vitamin D2 <4.0 ng/mL 25-Hydroxy Vitamin D3 63 ng/mL 25-Hydroxy Vitamin D Total 63 ng/mL 29 CBC With Manual Diff 12/09/2013 White Blood Count 5.1 10^3/uL 4.8-10.8 30 Red Blood Count 4.50 10^6/uL 4.0-5.4 30 Hemoglobin 14.3 g/dL 12.0-16.0 30 Hematocrit 43 % 35-47 30 Mean Corpuscular Volume 95 fL 80-97 30 Mean Corpuscular Hemoglobin 32 pg High 27-31 30 Mean Corpuscular HGB Conc 34 g/dL 31-36 30 Red Cell Distribution Width 14 % 10.5-15 30 Platelet Count 255 10^3/uL 150-450 30 Mean Platelet Volume 8 um3 7.4-10.4 30 Abs Neutrophils 2.7 10^3/uL 1.5-7.7 30 Abs Lymphocytes 1.9 10^3/uL 1.0-4.8 30 Abs Monocytes 0.3 10^3/uL 0-0.8 30 Abs Eosinophils 0.2 10^3/uL 0-0.6 30 Abs Basophils 0 10^3/uL 0-0.2 30 Abs Nucleated RBC 0 10^3/uL 30 Granulocyte % 53.1 % 38-83 30 Lymphocyte % 36.6 % 25-47 30 Monocyte % 6.7 % 1-9 30 Eosinophil % 3.0 % 0-6 30 Basophil % 0.6 % 0-2 30 Nucleated Red Blood Cells % 0 30 Comp Metabolic Panel 12/09/2013 Sodium 139 mmol/L 133-145 30 Potassium 4.2 mmol/L 3.7-5.6 30 Chloride 102 mmol/L 101-111 30 Co2 Carbon Dioxide 29 mmol/L 22-32 30 Anion Gap 8 mmol/L 2-11 30 Glucose 78 mg/dL 70-100 30 Blood Urea Nitrogen 19 mg/dL 6-24 30 Creatinine 0.85 mg/dL 0.51-0.95 30 BUN/Creatinine Ratio 22.4 High 8-20 30 Calcium 9.8 mg/dL 8.6-10.3 30 Total Protein 6.5 g/dL 6.4-8.9 30 Albumin 4.5 g/dL 3.2-5.2 30 Globulin 2.0 g/dL 2-4 30 Albumin/Globulin Ratio 2.3 1-3 30 Total Bilirubin 0.50 mg/dL 0.2-1.0 30 Alkaline Phosphatase 79 U/L 34-104 30 Alt 18 U/L 7-52 30 Ast 24 U/L 13-39 30 Egfr Non- 65.9 >60 30 Egfr 84.8 >60 30, 31 Laboratory test 12/09/2013 TSH (Thyroid 1.83 IU/mL 0.34-5.60 30, 32 finding Stimulating Horm) T4 6.09 g/dL 6.09-12.23 30, 33 Lipid Profile (Trig/Chol/HDL) 12/09/2013 Triglycerides 96 mg/dL 30, 34 Cholesterol 215 mg/dL 30, 35 HDL Cholesterol 70.5 mg/dL 30, 36 LDL Cholesterol 125 mg/dL 30, 37 Surgical Pathology 11/05/2013 S RUN DATE: 11/06/ <SEE 38 NOTE> Surgical Pathology 11/05/2012 S RUN DATE: 11/07/ <SEE 39 NOTE> Surgical Pathology 07/02/2012 S RUN DATE: 07/03/ <SEE 40 NOTE> Cytology 06/04/2012 Cy RUN DATE: 06/05/ <SEE 41 NOTE> Vitamin D, 25 Hydroxy 05/17/2011 25-Hydroxy Vitamin D2 <4.0 ng/mL () 25-Hydroxy Vitamin D3 40 ng/mL () 25-Hydroxy Vitamin D Total 40 ng/mL () 42 Laboratory test finding 05/17/2011 Vitamin B12 403 pg/mL 180-914 TSH 2.07 MIU/ML 0.34-5.60 Thyroxine Free 0.92 ng/dL 0.61-1.24 T3 Free 2.78 pg/mL 2.39-6.79 Insulin 9.5 mcIU/mL 2.6 - 24.9 43 Glucose 102 mg/dL High 70-100 CBC Auto Diff 05/17/2011 White Blood Count [...] Eosinophils 0.1 0-0.6 Abs Basophils 0 0-0.2 Lipid Profile (Trig/Chol/HDL) 05/17/2011 Triglyceride 87 mg/dL 40-200 Cholesterol 242 mg/dL High Less Than 200 44 High Density Lipoprotein 65 mg/dL High 40-60 45 Cholesterol/HDL Ratio 3.72 AVERAGE 1-4.44 Low Density Lipoprotein 160 mg/dL High Less Than 100 46 Laboratory test finding 05/17/2011 Ferritin 60 NG/ML 11.0-307 Laboratory test finding 03/21/2007 Estradiol < 20 pg/mL 47 FSH 33.58 MIU/ML 48 Progesterone 1.8 NG/ML 49 Laboratory test finding 03/07/2007 Estradiol 434.0 pg/mL 50, 51 FSH 29.20 MIU/ML 50, 52 Progesterone 11.3 NG/ML 50, 53 Basic Metabolic Panel 03/07/2007 One Over Creatinine 1.11 50 Anion Gap 8.0 mmol/L 2-11 50, 54 BUN 15 mg/dL 6-24 50 Calcium 9.3 mg/dL 8.7-10.2 50 Chloride 105 mmol/L 101-111 50 Co2 (Carbon Dioxide) 25.0 mmol/L 22-32 50 Glucose 81 mg/dL 70-105 50 Potassium 5.0 mmol/L 3.5-5.0 50 Sodium 138 mmol/L 135-145 50 BUN/Creatinine Ratio 16.7 8-20 50 Creatinine 0.9 mg/dL 0.5-1.4 50 Lipid Profile (Trig/Chol/HDL) 03/07/2007 Cholesterol 192 mg/dL Less Than 200 50, 55 Triglyceride 62 mg/dL 40-200 50 High Density Lipoprotein 56 mg/dL 40-60 50 Low Density Lipoprotein 124 mg/dL High Less Than 100 50, 56 Cholesterol/HDL Ratio 3.43 AVERAGE 1-4.44 50 Laboratory test finding 03/07/2007 Vitamin D, 25 48.1 NG/ML 20-100 50, 57 Hydroxy Laboratory test finding 03/07/2007 TSH 1.37 MIU/ML 0.34-5.60 50 Dhea Sulfate 42 g/dL 35.0-430.0 50, 58 Testosterone Free & Total 03/07/2007 Testosterone,Free < 0.02 ng/dL 50 , 59 Testosterone 32 ng/dL 14-76 50 1 Acute inflammation: >10.00 2 Because ethnic data is not always readily [...] 15-29 5 Kidney failure <15 (or dialysis) 3 Test Performed by: [address] [address] 4 Because ethnic data is not always readily [...] 15-29 5 Kidney failure <15 (or dialysis) 5 Acute inflammation: >10.00 6 Desirable <150 Borderline high 150-199 High 200-499 Very High >500 7 Desirable <200 Borderline high 200-239 High >239 8 Low <40 Desirable: 40-60 High: >60 9 Desirable: <100 mg/dL Near Optimal: 100-129 mg/dL Borderline High: 130-159 mg/dL High: 160-189 mg/dL Very High: >189 mg/dL 10 Because ethnic data is not always readily [...] 15-29 5 Kidney failure <15 (or dialysis) 11 Because ethnic data is not always [...] 5 Kidney failure <15 (or dialysis) 12 [id number] SEE RESULT BELOW Name: EAGLE FIGUEREDO : [address]: Afia Sheppard MD Acct: [id number] Unit: [id number] AGE: 75 Location: [facility] Re04/12/16 SEX: F Status: REG [facility] SPEC: [id number] ELIZABETH: 04/12/161235 [facility] DR: Afia Sheppard MD REQ: [id number] RECD: 04/12/16 STATUS: SOUT _ ORDERED: LEVEL III COMMENTS: [id number] FINAL DIAGNOSIS Soft tissue, right middle and [...] performed at Main Lab DEPARTMENT OF PATHOLOGY, [address] [place] [address] Ha Gonzalez M.D. Director [facility] # [id number] 14 Because ethnic data is not always readily [...] 15-29 5 Kidney failure <15 (or dialysis) 15 Desirable <150 Borderline high 150-199 High 200-499 Very High >500 16 Desirable <200 Borderline high 200-239 High >239 17 Low <40 Desirable: 40-60 High: >60 18 Desirable: <100 mg/dL Near Optimal: 100-129 mg/dL Borderline High: 130-159 mg/dL High: 160-189 mg/dL Very High: >189 mg/dL 19 Normal Range 180 to 914 Indeterminate Range 145 to 180 Deficient Range <145 20 Reference Range and Interpretation: TnI (ng/mL) Interpretation Less Than 0.03 ng/mL Not supportive of diagnosis of [place] 0.03 - 0.50 ng/mL Indeterminate: suggest serial studies if clinically indicated. Greater than 0.5 ng/mL Consistent with diagnosis of [place] 21 Because ethnic data is not always readily [...] 15-29 5 Kidney failure <15 (or dialysis) 22 Please note: The following may produce a false positive D Dimer test: - Rheumatoid factor greater than 60 IU/ml - Plasma hemoglobin greater than 0.05 gm/dl - Bilirubin greater than 50 mg/dl - Lipids greater than 1000 mg/dl - FDP greater than 20 ug/ml 23 Reference Range and Interpretation: TnI (ng/mL) Interpretation Less Than 0.03 ng/mL Not supportive of diagnosis of [place] 0.03 - 0.50 ng/mL Indeterminate: suggest serial studies if clinically indicated. Greater than 0.5 ng/mL Consistent with diagnosis of [place] 24 Reference Range and Interpretation: TnI (ng/mL) Interpretation Less Than 0.03 ng/mL Not supportive of diagnosis of [place] 0.03 - 0.50 ng/mL Indeterminate: suggest serial studies if clinically indicated. Greater than 0.5 ng/mL Consistent with diagnosis of [place] 25 Because ethnic data is not always readily [...] 15-29 5 Kidney failure <15 (or dialysis) 26 Serologic response to B. burgdorferi infection is not detected, but cannot rule out early infection during which low or undetectable antibody levels to B. burgdorferi may be present. If clinically indicated, a new serum specimen should be submitted in 7-14 days. Test Performed by: [address] [address] Branch Lending Officer: Alexis Gagnon III, M.D. 27 Acute inflammation: >10.00 28 Test Performed by: [address] [address] Branch Lending Officer: Alexis Gagnon III, M.D. 29 Interpretation: 51-80 ng/mL (increased risk of hypercalciuria) -- REFERENCE VALUE -- 25-HYDROXY D TOTAL (D2+D3) Optimum levels in the healthy population are 20-50, patients with bone disease may benefit from higher levels within this range. Test Performed by: [address] [address] Branch Lending Officer: Alexis Gagnon III, M.D. 30 PT IS FASTAING 31 Because ethnic data is not always readily [...] 15-29 5 Kidney failure <15 (or dialysis) 32 PT IS FASTAING 33 PT IS FASTAING 34 Desirable <150 Borderline high 150-199 High 200-499 Very High >500 35 Desirable <200 Borderline high 200-239 High >239 36 Low <40 Desirable: 40-60 High: >60 37 Desirable <100 Near Optimal 100-129 Borderline high 130-159 High 160-189 Very High >189 38 RUN DATE: 11/06/13 [facility] LAB LIVE PAGE 1 RUN TIME: 15[address] [place], [place] [address] Specimen Inquiry Name: EAGLE FIGUEREDO : [address]: Afia Sheppard MD Acct: [id number] Unit: [id number] AGE: 73 Location: [facility] Re11/05/13 SEX: F Status: REG SD SPEC: [id number] ELIZABETH: 11/05/13- SUBM DR: Afia Sheppard MD REQ: [id number] RECD: 11/05/13 STATUS: SOUT _ ORDERED: LEVEL I FINAL DIAGNOSIS Wrist, left, hardware removal: Foreign body (orthopedic hardware) as described below (Gross diagnosis). PRE-OPERATIVE DIAGNOSIS Left distal radius healing fracture with one failing painful screw. GROSS DESCRIPTION The specimen is received fresh labeled Martha Hanson Left Wrist and consists of a 2.0 x 0.2 cm. silver metallic, threaded, Jose Juan headed screw. Per established hospital medical staff protocol no tissue is submitted. Gross only. Signed (signature on file) Marya Lopez MD 1623 END OF REPORT * ML=Testing performed at Main Lab DEPARTMENT OF PATHOLOGY, [address] [place] [address] Ha Gonzalez M.D. Director [facility] # [id number] RUN DATE: 11/07/12 [facility] LAB LIVE PAGE 1 RUN TIME: [address] [place] [address] Specimen Inquiry Name: EAGLE FIGUEREDO : [address]: Awais Johnson MD Acct: [id number] Unit: [id number] AGE: 72 Location: [facility] Re11/05/12 SEX: F Status: REG REF SPEC: [id number] ELIZABETH: 11/05/12- SUBM DR: Awais Johnson MD REQ: [id number] RECD: 11/05/121558 STATUS: NATHANAEL BULLARD DR: Umesh Cardenas MD [...] Signed (signature on file) Ha Gonzalez MD 1502 END OF REPORT * ML=Testing performed at Main Lab DEPARTMENT OF PATHOLOGY, [employer] [place], [place] [address] Ha Gonzalez M.D. Director [facility] Permit #[id number] RUN DATE: 07/03/12 [facility] LAB LIVE PAGE 1 RUN TIME: 4486 [facility] [employer] [place], [place] [address] Specimen Inquiry Name: EAGLE FIGUEREDO : [address]: Ronald JOHN, Umesh Lopez Acct: [id number] Unit: [id number] AGE: 71 Location: [facility] Re07/02/12 SEX: F Status: REG REF SPEC: [id number] ELIZABETH: 07/02/12- SUBM DR: Cassia JOHN,Nikole Bain REQ: [id number] RECD: 07/02/129 STATUS: NATHANAEL BULLARD DR: Ronald JOHN,Umesh Lopez [...] performed at Main Lab DEPARTMENT OF PATHOLOGY, [address] [place] [address] Ha Gonzalez M.D. Director [facility] Permit #[id number] 41 RUN DATE: 06/05/12 [facility] LAB LIVE PAGE 1 RUN TIME: [address] [place] [address] Specimen Inquiry Name: EAGLE FIGUEREDO : [address]: Kayla Gonzales NP Acct: [id number] Unit: [id number] AGE: 71 Location: [facility] Re06/04/12 SEX: F Status: REG REF SPEC: [id number] ELIZABETH: 06/04/[address]: Kayla Gonzales NP REQ: [id number] RECD: 06/05/12 STATUS: NATHANAEL BULLARD DR: Ronald [...] Smears?:N Signed (signature on file) Amie Thompson, MS (ASCP) 06/05/12 1433 This Pap test was evaluated with the assistance of the MemePrep Test Imaging System. Due to cytologic findings at the computer customer support specialist microscope, comprehensive manual rescreening by a Infantry Weapons Officer may be required. The Pap Smear is [...] performed at Main Lab DEPARTMENT OF PATHOLOGY, [address] [place] [address] Ha Gonzalez M.D. Director [facility] Permit #[id number] 42 -- REFERENCE VALUE -- 25-HYDROXY D TOTAL (D2+D3) Optimum levels in the normal population are 25-80 Test Performed by: [facility] Dpt of Lab Med and Pathology [address] [place] [address] Branch Lending Officer: Alexis Gagnon III, M.D. 43 Test Performed by: [facility] Dpt of Lab Med and Pathology [address] [place] [address] Branch Lending Officer: Alexis Gagnon III, M.D. 44 CHOLESTEROL INTERPRETATION: Desirable: Less than 200 MG/DL Borderline-High Risk: 200-239 MG/DL High-Risk: 240 MG/DL and over 45 HDL INTERPRETATION: Undesirable: High Risk: Less than 40 MG/DL Desirable: Low Risk: Greater than 60 MG/DL 46 LDL INTERPRETATION: Low Risk Optimal Level: LDL Less than 100 MG/DL Near or Above Optimal: LDL 100-129 MG/DL Borderline High Risk: LDL 130-159 MG/DL High Risk: LDL 160-189 MG/DL Very High Risk: LDL Greater than 189 MG/DL 47 EXPECTED RESULTS (pg/ml) MALES 20-75 POSTMENOPAUSAL FEMALES 20-88 NON FEMALES Mid-Follicular Phase 24-114 Periovulatory 62-534 Mid Luteal Phase 80-273 48 NORMAL RANGE MALES 1 - 20 NORMALLY MENSTRUATING FEMALES - Follicular Phase 3 - 9 - Mid-Cycle Peak 4 - 23 - Luteal Phase 1 - 6 POSTMENOPAUSAL FEMALES . 49 FEMALE REFERENCE RANGES FOR Progesterone: Follicular phase.......0.3 - 1.5 ng/ml Mid-luteal phase.......5.2 - 18.5 ng/ml Postmenopausal.........< 0.8 ng/ml 1st trimester.........4.7 - 50.0 ng/ml 2nd trimester.........19.4 - 45.3 ng/ml . 50 FASTING 51 EXPECTED RESULTS (pg/ml) MALES 20-75 POSTMENOPAUSAL FEMALES 20-88 NON FEMALES Mid-Follicular Phase 24-114 Periovulatory 62-534 Mid Luteal Phase 80-273 52 NORMAL RANGE MALES 1 - 20 NORMALLY MENSTRUATING FEMALES - Follicular Phase 3 - 9 - Mid-Cycle Peak 4 - 23 - Luteal Phase 1 - 6 POSTMENOPAUSAL FEMALES . 53 FEMALE REFERENCE RANGES FOR Progesterone: Follicular phase.......0.3 - 1.5 ng/ml Mid-luteal phase.......5.2 - 18.5 ng/ml Postmenopausal.........< 0.8 ng/ml 1st trimester.........4.7 - 50.0 ng/ml 2nd trimester.........19.4 - 45.3 ng/ml . 54 Anion gap measurement may be of limited value in the presence of any alkalosis, especially in a combined acid base disorder. . 55 Classification: Desirable . 56 CALCULATED LDL APPROXIMATES THE VALUE OF A DIRECT LDL MEASUREMENT. Classification: Near or above optimal . 57 INTERPRETIVE GUIDELINES FOR VITAMIN D (25-HYDROXY): >100 [...] SIGNIFICANT RISK OF OSTEOMALACIA. TEST PERFORMED BY: [employer]. [id number] [place] [address] NOTE: NEW REFERENCE RANGE OF 11/14/06 58 TEST PERFORMED BY: [employer]. [id number] [place] [address] 59 REFERENCE RANGE FOR TESTOSTERONE FREE MALES: 20-49 YRS . . . . . 0.95-4.30 NG/DL > OR=50 YRS . . . 0.80-3.50 NG/DL FEMALES: OVULATING . . . . UP TO 0.38 NG/DL POSTMENOPAUSAL . . UP TO 0.18 NG/DL Procedures Date CPT Code Description Status 12/19/2017 30432 Nerve Conduction 07-08 Studies Completed 12/19/2017 65689 Needle Electromyography Each Extremity W/Related Completed Paraspinal Areas 10/19/2017 Mammogram Completed 08/24/2017 27722 EKG Tracing & Interpretation Completed 10/18/2016 Mammogram Completed 09/15/2016 15663 EKG Tracing & Interpretation Completed 06/30/2016 43256 EKG Tracing & Interpretation Completed 04/12/2016 84912 Excision Tendon Sheath Ganglion /Or Joint Capsule Hand Completed Or Finger 04/12/2016 21104 Excision Tendon Sheath Ganglion /Or Joint Capsule Hand Completed Or Finger 04/12/2016 50716 Excision Tendon Sheath Ganglion /Or Joint Capsule Hand Completed Or Finger 04/12/2016 53544 Excision Tendon Sheath Ganglion /Or Joint Capsule Hand Completed Or Finger 12/22/2015 Colonoscopy Completed 12/17/2015 59619 Nerve Conduction 05-06 Studies Completed 12/17/2015 33236 Needle Electromyography Complete, Five Or More Muscles Completed Studied 11/03/2015 87722 EKG Tracing & Interpretation Completed 10/15/2015 Mammogram Completed 06/24/2015 32999 ECHO Transthoracic, Real-Time 2D With Doppler And Color Completed Flow 06/23/2015 77382 EKG Tracing & Interpretation Completed 06/18/2015 72030 Holter Monitoring 24 HR New Completed 06/15/2015 80593 Stress Test Supervsn W/Out I/R Completed 06/15/2015 78312 EKG, Interpretation Only Completed 06/15/2015 68295 Treadmill Interp/Report Only Completed 12/02/2014 67767 Nerve Conduction 03-04 Studies Completed 12/02/2014 90868 Needle Electromyography Complete, Five Or More Muscles Completed Studied 07/10/2014 44521 Inject/Drain Joint/Bursa Major W/O US Completed 07/10/2014 76403 Inject/Drain Joint/Bursa Major W/O US Completed 05/29/2014 Mammogram Completed 02/13/2014 12855 Rad Shoulder Comp, Min. 2 Views Completed 12/10/2013 Bone Mineral Density Test Completed 11/05/2013 39104 Removal Implant Deep Wire,Screw Nail,Chet Or Plate Completed 10/31/2013 52397 Rad Exam; Wrist, Comp, Min 3 Views Completed 09/26/2013 66579 Rad Exam; Wrist, Comp, Min 3 Views Completed 09/17/2013 00755 Open TX Distal Radial Intra-Articular FX W Fixation Of Completed 3 Or More 01/24/2013 25386 Rad Shoulder Comp, Min. 2 Views Completed 01/23/2013 Mammogram Completed 12/20/2012 11410 Stress Test Supervsn W/Out I/R Completed 12/20/2012 66291 Treadmill Interp/Report Only Completed 12/11/2012 22729 Holter Monitor Review (24 hr)dr kalyan & interviviana only Completed 11/05/2012 Colonoscopy Completed 08/28/2012 Bone Mineral Density Test Completed 07/02/2012 Mammogram Completed 06/25/2012 Mammogram Completed 06/26/2002 Colonoscopy Completed Encounters Type Date Location Provider CPT E/M Dx Office Visit 11/16/2017 [facility] [address] G56.03 11:00a G60.8 Office Visit 09/20/2017 8:20a [facility] Umesh Cardenas, 41520 L50.1 - Melissa Baker M.D.,FACP M35.3 Office Visit 08/24/2017 10:20a [facility] [address] I47.1 [facility] FAC Office Visit 02/28/2017 10:30a [facility] Umesh Cardenas, 75153 Z00.01 - Mahesh Crockett,FACP M54.16 I47.1 G60.8 Office Visit 02/21/2017 9:30a [facility] [address] M54.16 G60.8 G56.03 Office Visit 01/10/2017 10:00a [facility] Jenny Conner, 41690 G47.33 [facility] JERI, RN, [facility]- M25.561 R53.83 Office Visit 12/13/2016 1:40p [facility] Umesh Lopez 15266 R42 Mahesh Cardenas M.D.,FACP Office Visit 10/20/2016 9:30a [facility] [address] M54.14 G60.8 G60.9 Office Visit 09/15/2016 1:40p [facility] Kamron Estrada, 44255 I47.1 [facility] Office Visit 09/06/2016 8:30a [facility] Umesh Cardenas, 93924 Z01.810 - Mahesh Crockett,FACP T84.022S I47.1 N95.1 Office Visit 08/18/2016 2:30p [facility] [address] M54.2 M54.14 Office Visit 06/30/2016 1:40p [facility] [address] I47.1 [facility] FACC Office Visit 03/31/2016 2:30p [facility] Afia Sheppard, 79272 M67.441 Of [place] Crockett Office Visit 03/17/2016 2:00p [facility] [place] [address] Z23 - Mahesh R22.9 Office Visit 12/21/2015 9:30a [facility] [address] M54.2 G60.8 M54.16 Office Visit 11/03/2015 11:30a [facility] Internal Umesh Cardenas, 68942 Z01.810 [facility] M13.812 M54.2 Office Visit 10/29/2015 9:30a [facility] [place] [address] G60.8 [facility] R26.89 M54.2 M54.16 R26.81 Office Visit 10/23/2015 8:30a [facility] Jenny Conner, 11705 G47.33 [facility] Office Visit 08/04/2015 10:15a [facility] Jenny Conner 91557 G47.33 [facility] Office Visit 07/24/2015 8:20a [facility] [place] [address] I47.1 [facility] Office Visit 07/23/2015 8:30a [facility] Umesh Cardenas, 09356 R53.83 - Melissa Baker M.D.,FACP Office Visit 06/23/2015 9:00a [facility] [place] [address] I47.1 [facility] F41.9 G47.33 Office Visit 06/16/2015 10:30a [facility] - Umesh Cardenas, 88189 I47.1 Mahesh Crockett,FACP Office Visit 06/15/2015 12:45p [facility] Carin Francie, 22289 R07.9 Hospitalists M.John I47.1 G47.33 M79.7 Office Visit 06/14/2015 12:44p [facility], Justino Estrella, 53867 R07.9 Hospitalists N.P. I47.1 G47.33 M79.7 Office Visit 06/03/2015 11:15a [facility] [place] [address] G60.8 G56.02 Office Visit 01/02/2015 11:40a [facility] Umesh Cardenas, 96810 427.0 - [place] Samuel Crockett,FAC Office Visit 10/07/2014 10:30a [facility] [place] [address] 354.0 [facility] 356.8 784.0 Office Visit 07/10/2014 9:30a [facility] Afia Sheppard, 99700 715.11 Of [place] Crockett 726.10 715.31 Office Visit 06/17/2014 9:00a [facility] [place] [address] 715.11 - [place] Office Visit 06/17/2014 10:00a [facility] Jenny Conner, 83847 327.23 [facility] JERI RN, [employer]- Office Visit 06/03/2014 9:00a [facility] Kae Harmon, 52565 300.00 - [place] N.P. 727.1 782.0 V72.31 V76.10 V76.2 Office Visit 05/20/2014 10:00a [facility] [place] [address] 300.00 [place] Office Visit 04/16/2014 1:30p [facility] [place] [address] 300.00 [place] Office Visit 04/02/2014 2:00p [facility] - Umesh Cardenas, 91077 715.09 Mahesh Crockett,FAC 780.79 Office Visit 02/13/2014 8:15a [facility] Afia Sheppard, 02817 726.33 Of [place] Crockett 715.11 Office Visit 02/11/2014 11:50a [facility] Umesh Cardenas, 68667 715.09 - Mahesh Crockett,FACP 726.33 Office Visit 12/31/2013 12:30p [facility] Kae Harmon, N.P. 08148 726.33 - [place] 786.03 Office Visit 12/04/2013 8:50a [facility] Umesh Cardenas, 18600 V70.0 - Mahesh Crockett,FACP 726.19 733.01 785.1 Office Visit 09/12/2013 10:00a [facility] Afia Sheppard 42028 813.42 Of [place] Crockett Office Visit 02/26/2013 3:00p [facility] 79174 380.4 - [place] Office Visit 01/24/2013 9:30a [facility] Services Ulices Mcrae M.D. 33436 726.10 Of [place] Office Visit 12/20/2012 [facility] 44399 785.1 Keira Wade 786.50 427.69 Office Visit 11/22/2012 3:30p [facility] Kae Harmon, N.P. 67190 785.1 - [place] 726.19 Office Visit 09/13/2012 9:00a [facility] Kae Harmon N.P. 93378 380.4 - [place] 461.1 Office Visit 08/21/2012 8:30a [facility] Kae Harmon, N.P. 68746 V82.81 - [place] V76.51 356.8 Office Visit 04/17/2012 4:00p [facility] Kae Harmon, N.P. 32140 959.5 - [place] V04.81 Office Visit 12/13/2011 11:30a [facility] Kae Harmon N.P. 62620 V43.65 - [place] 719.46 726.19 Office Visit 10/06/2011 2:40p [facility] Umesh Cardenas, 56421 466.0 - Mahesh Crockett,FACP Office Visit 05/11/2011 1:20p DO Not Use [employer] AT Umesh Cardenas, 24055 780.79 Neelima Crockett,FACP 311 268.9 737.39 V77.91 Office Visit 03/04/2011 1:00p DO Not Use [employer] AT Umesh Cardenas, 83547 729.1 Neelima Crockett,FACP 737.39 784.0 564.1 V03.82 V04.89 V05.8 Plan of Care Future Appointment(s):04/10/2018 9:45 am - Jenny Conner DNP, RN, [employer]-BC at [facility]07/19/2018 9:45 am - Harjit Gregg MD at Neurohospitalist Khtvtx6703/06/2018 10:20 am - Umesh Cardenas M.D.,FACP at [facility] - Qcqrbhlvt06/02/2018 - Kam[place] Estrada, DO FACCR00.2 PalpitationsComments:You have had supraventricular tachycardia (fast abnormal heart rate) in the past. You have also havepalpitations not related to your heart (maybe stress). Your palpitations during prior holter monitors have not been related to your heart.Follow up:f/u PRN
--- OUTSIDE RECORDS SUMMARY | 2018-01-28 13:12 | XMS REPORT ---
:1940 External Reference #:[id number] Author Organization [facility] Address [address] [place] [address] [place] [address] Phone [phone] Care Team Providers Name Role Phone Umesh Cardenas MD Care Team Information Consumer Sales Representative Unavailable Umesh Cardenas MD Primary Care Physician Unavailable Payers Type Date Identification Numbers Payment Provider Subscriber Commercial Policy Number: [id number] Amer Prog/Todays Options Eagle Figueredo PayID: [id number] [address] [address] Attn: [place] [address] Medigap Part B Expires: 2012 Policy Number: [facility] Eagle Figueredo [id number] Healthcare PayID: [id number] [address] [place] [address] Medigap Part B Effective: 2007 Policy Number: [id number] Medicare Eagle Figueredo Expires: 2012 PayID: [id number] [address] [place] [address] Advance Directives Type Date Description Status Comment [...] of adult Jenny JERI Conner, RN, Active CONTINUOUS IMPROVEMENT LEAD-BC Onset: 06/03/2015 Idiopathic peripheral neuropathy Harjit Gregg [...] : (age 67 Years) Father due to OR : (age 85 Years) Mother due to CHF Children 2 Siblings 2 1 now First Sister due to Cancer, Ovarian () Second Sister Stroke due to PFO Second Sister Cancer, Breast Social History Type Date Description Comments Marital Status Lives With Occupation 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 Bisoprolol 07/02 Active Tablets 5mg 45tab 1/2 by mouth Umesh Fumarate s every day John Cardenas M.D.,[facility] Cymbalta 04/[address] 60mg 90cap 1 by mouth Umesh Part s every day John Cardenas M.D.,FACP Lorazepam Active Tablets 0.5mg 30tab 1-2 by mouth s every 8 John Cardenas, hours as RM Crockett needed [place]aines 3 Active Capsules daily Unknown / Vitamin B-12 Active daily Unknown /0000 Probiotic Active Capsules daily Unknown Formula / Turmeric Active four daily Unknown / Holy Basil Active Homeopathic Unknown / prn Vitamin D Active Capsules 1 by mouth Unknown (Cholecalciferol /0000 every day ) Magnesium Active Tablets 1 by mouth Unknown /0000 every day Wild Yam Active Capsules 100mg 1 cap po bid Unknown /0000 Calcium Active Tablets 1500mg Unknown /0000 Gabapentin 10/20 Hx Capsules 100mg 240ca Take 1 G60.8 ps Capsule Four Marysol, - Times A Day 09/20 For 2 Weeks /2017 Then Increase To Take 2 Capsules By [...] evening to John Cardenas, - aid sleep M.DPraveena,FACP 10/07 Metoprolol 06/23 Hx Tablets 25mg 60tab 1/2 by mouth I47.1 Kamron S. Succinate ER ER 24HR s daily at [facility], DO - bedtime FAC 07/02 Duloxetine HCL 04/[address] 60mg 30cap take one Part s capsule by John Cardenas, - mouth every M.D.,FACP Gabapentin 04/13 Hx Capsules 100mg 240ca Take Two ps Capsules By John Cardenas, - Mouth Four M.D.,FACP 03/17 Times A Day Diltiazem HCL ER 12/18 Hx Caps ER 120mg 90cap take one 785.1 Umesh Coated 24HR s capsule by John Cardenas, - mouth every M.D.,FACP [id number] 04/02 Hx Capsules 500-50mg 60cap by mouth 715.09 Umesh s twice a day Francesca Rosales M.D.,[facility] 04/16 Voltaren 02/11 Hx Gel 1% 100g apply 2 gms 715.09 to elbow John Cardenas, - twice a day M.DPraveena,[facility] 03/29 as needed Can also use 1-2 grams on fingers, feet as needed Glucosamine 02/11 Hx Tablets 1 tab by 715.09 Umesh Chondroitin mouth twice John Cardenas, Advanced - a day. MPraveenaDPraveena,[facility] 04/[address] 12/31 Hx Tablets 500mg 28tab by mouth 726.[address] jacobsen twice a day Faustino, - with food x N.P. 02/11 Diltiazem HCL ER 12/04 Hx Caps ER 120mg 90cap 1 po qd 785.1 Umesh Beads 24HR s Francesca Rosales M.D.,[facility] 12/18 [place] 10/31 Hx Tablets 5-325mg 40tab 1-2 tab by Afia s mouth every Sheppard, - 4-6 hours as M.DPraveena 12/04 needed pain Percocet 09/12 Hx Tablets 5-325mg 60tab take 1-2 Afia s tabs by Silver, - mouth q4-6 M.D. 04/02 hours as needed pain Azithromycin 10/05 Hx Tablets 250mg 6tabs 2 qd for 1 466.0 day, then 1 John Cardenas, - qd M.John,[facility] 12/12 Cheratussin ac 10/05 Hx Syrup 100-10mg/ 200ml 2 tsp po qid 466.0 5ML prn Francesca Rosales M.D.,[facility] 02/02 Cymbalta 03/[address] 60mg 30cap 1 by mouth Lucho Part s every day JAVED Morales - 04/13 Cyclobenzaprine 03/04 Hx Tablets 10mg 45tab one po tid s prn spasm Francesca Rosales M.D.,[facility] 04/16 Atenolol 03/04 Hx Tablets 25mg 90tab Take One 785.1 s Tablet By John Cardenas, - Mouth Every M.DPraveena,[facility] Gabapentin 03/04 Hx Capsules 100mg 240ca take two ps capsules by JAVED Morales - mouth four 04/13 times a Cephalexin Hx Tablets 250mg 20tab 1 po [...] tab Umesh / s four times a D. Ronald, - day as MMendoza,[facility] 03/17 Vitamin D Hx 3000Iu One tab PO Unknown (Cholecalciferol /0000 daily ) - 03/30 Medications Administered in Office Medication Date Status Form Strength Qnty SIG Indications Ordering Provider Depomedrol Administered Injection Afia 80MG 015 Keira Sheppard Depomedrol Administered Injection Afia 80MG 015 Keira Sheppard Immunizations CPT Code Status Date Vaccine Lot # [id number] Given 10/08/2015 Pneumococcal Conjugate Vaccine 13 Valent For [id number] Intramuscular Use 23067 Given 04/17/2012 Tdap - Tetanus/Diptheria/Acellular Pertussis [id number] Q2038 Given 03/23/2012 Fluzone Vaccine [id number] 21487 Given 03/04/2011 Zoster (Zostavax) [id number] 07491 Given 03/04/2011 Pneumonia Vaccine [id number] 18315 Given 08/16/2004 Td Toxoids Adsorbed For Use 7Yrs Or Older For Intramuscular Use 62321 Refused 05/11/2011 Influenza Virus 3Yrs & Over Vital Signs Date Vital Result Comment 01/18/2018 Height 64 inches 5'4" Weight 141.50 [...] 40 NOTE> Cytology 06/04/2012 Cy RUN DATE: <SEE 41 NOTE> Vitamin D, 25 Hydroxy [...] <15 (or dialysis) 3 Test Performed by: [address] [address] 4 Because ethnic data is not always [...] 5 Kidney failure <15 (or dialysis) 12 [id number] SEE RESULT BELOW Name: EAGLE FIGUEREDO : [address]: Afia Sheppard MD Acct: [id number] Unit: [id number] AGE: 75 Location: [facility] Re04/12/16 SEX: F Status: REG [facility] SPEC: [id number] ELIZABETH: 04/12/16-1235 [facility] [address]: Afia Sheppard MD REQ: [id number] RECD: 04/12/16 STATUS: SOUT _ ORDERED: LEVEL III COMMENTS: [id number] FINAL DIAGNOSIS Soft tissue, right middle and [...] performed at Main Lab DEPARTMENT OF PATHOLOGY, [address] [place] [address] Ha Gonzalez M.D. Director [facility] # [id number] 14 Because ethnic data is not always [...] 0.03 ng/mL Not supportive of diagnosis of OR 0.03 - 0.50 ng/mL Indeterminate: suggest serial studies if clinically indicated. Greater than 0.5 ng/mL Consistent with diagnosis of OR 21 Because ethnic data is not always [...] 0.03 ng/mL Not supportive of diagnosis of OR 0.03 - 0.50 ng/mL Indeterminate: suggest serial studies if clinically indicated. Greater than 0.5 ng/mL Consistent with diagnosis of OR 24 Reference Range and Interpretation: TnI (ng/mL) Interpretation Less Than 0.03 ng/mL Not supportive of diagnosis of OR 0.03 - 0.50 ng/mL Indeterminate: suggest serial studies if clinically indicated. Greater than 0.5 ng/mL Consistent with diagnosis of OR 25 Because ethnic data is not always [...] submitted in 7-14 days. Test Performed by: [place] [address] Economic History Teacher: Alexis Gagnon III, M.D. 27 Acute inflammation: >10.00 28 Test Performed by: [place] [address] Economic History Teacher: Alexis Gagnon III, M.D. 29 Interpretation: 51-80 ng/mL (increased risk of hypercalciuria) -- REFERENCE VALUE -- 25-HYDROXY D TOTAL (D2+D3) Optimum levels in the healthy population are 20-50, patients with bone disease may benefit from higher levels within this range. Test Performed by: [place] [address] Economic History Teacher: Alexis Gagnon III, M.D. 30 PT IS [...] Very High >189 38 RUN DATE: 11/06/13 [facility] LAB LIVE PAGE 1 RUN TIME: 0113 [address] [place], [place] [address] Specimen Inquiry Name: EAGLE FIGUEREDO : [address]: Afia Sheppard MD Acct: [id number] Unit: [id number] AGE: 73 Location: [facility] Re11/05/13 SEX: F Status: REG [facility] SPEC: [id number] ELIZABETH: 11/05/13- SUBM DR: Afia Sheppard MD REQ: [id number] RECD: 11/05/13-1556 STATUS: SOUT _ ORDERED: LEVEL [...] performed at Main Lab DEPARTMENT OF PATHOLOGY, [facility] [employer] [facility] [place], [place] [address] Ha Gonzalez M.D. Director [facility] # [id number] RUN DATE: 11/07/12 [facility] LAB LIVE PAGE 1 RUN TIME: 0017 [facility] [employer] [place], [place] [address] Specimen Inquiry Name: EAGLE FIGUEREDO : [address]: Awais Johnson MD Acct: [id number] Unit: [id number] AGE: 72 Location: [facility] Re11/05/12 SEX: F Status: REG REF SPEC: [id number] ELIZABETH: 11/05/12- SUBM DR: Awais Johnson MD REQ: [id number] RECD: 11/05/12 STATUS: NATHANAEL BULLARD DR: Umesh Cardenas MD [...] performed at Main Lab DEPARTMENT OF PATHOLOGY, [address] [place] [address] Ha Gonzalez M.D. Director [facility] Permit #[id number] 40 RUN DATE: 07/03/12 [facility] LAB LIVE PAGE 1 RUN TIME: [address] [place] [address] Specimen Inquiry Name: EAGLE FIGUEREDO : [address]: Ronald JOHN, Umesh Lopez Acct: [id number] Unit: [id number] AGE: 71 Location: [facility] Re07/02/12 SEX: F Status: REG REF SPEC: [id number] ELIZABETH: 07/02/12- SUBM DR: Cassia JOHN,Nikole Bain REQ: [id number] RECD: 07/02/121059 STATUS: NATHANAEL BULLARD DR: Ronald JOHN,Umesh Lopez [...] performed at Main Lab DEPARTMENT OF PATHOLOGY, [facility] [employer] [facility] [place], [place] [address] Ha Gonzalez M.D. Director [facility] Permit #[id number] 41 RUN DATE: 06/05/12 [facility] LAB LIVE PAGE 1 RUN TIME: 1433 [facility] [employer] [place], [place] [address] Specimen Inquiry Name: EAGLE FIGUEREDO : [address]: Kayla Gonzales NP Acct: [id number] Unit: [id number] AGE: 71 Location: [facility] Re06/04/12 SEX: F Status: REG REF SPEC: [id number] ELIZABETH: 06/04/12 [facility] DR: Kayla Gonzales NP REQ: [id number] RECD: 06/05/12 STATUS: NATHANAEL BULLARD DR: Ronald [...] Abnormal Pap Smears?:N Signed (signature on file) LORY Galvez (ASCP) 06/05/12 1433 This Pap test was evaluated with the assistance of the Postcard on the RunPrep Test Imaging System. Due to cytologic findings at the whanau support worker microscope, comprehensive manual rescreening by a Vice President Digital Strategist may be required. The Pap Smear is [...] performed at Main Lab DEPARTMENT OF PATHOLOGY, [address] [place] [address] Ha Gonzalez M.D. Director [facility] Permit #[id number] 42 -- REFERENCE VALUE -- 25-HYDROXY D TOTAL (D2+D3) Optimum levels in the normal population are 25-80 Test Performed by: [facility] Med and Pathology [address] [place] [address] Economic History Teacher: Alexis Gagnon III, M.D. 43 Test Performed by: [facility] Path[facility] [address] [place] [address] Economic History Teacher: Alexis Gagnon III, M.D. 44 CHOLESTEROL INTERPRETATION: [...] Phase 1 - 6 POSTMENOPAUSAL FEMALES 16 - 114 . 49 FEMALE REFERENCE RANGES FOR Progesterone: [...] Phase 1 - 6 POSTMENOPAUSAL FEMALES 16 - 114 . 53 FEMALE REFERENCE RANGES FOR Progesterone: [...] SIGNIFICANT RISK OF OSTEOMALACIA. TEST PERFORMED BY: [facility]. [id number] [place] [address] NOTE: NEW REFERENCE RANGE OF 11/14/06 58 TEST PERFORMED BY: [facility]. [id number] [place] [address] 59 REFERENCE RANGE FOR TESTOSTERONE FREE MALES: 20-49 YRS . . . . . 0.95-4.30 NG/DL > OR=50 YRS . . . 0.80-3.50 NG/DL FEMALES: OVULATING . . . . UP TO 0.38 NG/DL POSTMENOPAUSAL . . UP TO 0.18 NG/DL Procedures Date CPT Code Description Status 12/19/2017 63456 Nerve Conduction 07-08 Studies Completed 12/19/2017 27005 Needle Electromyography Each Extremity W/Related Completed Paraspinal Areas 10/19/2017 Mammogram Completed 08/24/2017 67228 EKG Tracing & Interpretation Completed 10/18/2016 Mammogram Completed 09/15/2016 83105 EKG Tracing & Interpretation Completed 06/30/2016 70043 EKG Tracing & Interpretation Completed 04/12/2016 05524 Excision Tendon Sheath Ganglion /Or Joint Capsule Hand Completed Or Finger 04/12/2016 97019 Excision Tendon Sheath Ganglion /Or Joint Capsule Hand Completed Or Finger 04/12/2016 38610 Excision Tendon Sheath Ganglion /Or Joint Capsule Hand Completed Or Finger 04/12/2016 78568 Excision Tendon Sheath Ganglion /Or Joint Capsule Hand Completed Or Finger 12/22/2015 Colonoscopy Completed 12/17/2015 17614 Nerve Conduction 05-06 Studies Completed 12/17/2015 67463 Needle Electromyography Complete, Five Or More Muscles Completed Studied 11/03/2015 41593 EKG Tracing & Interpretation Completed 10/15/2015 Mammogram Completed 06/24/2015 97574 ECHO Transthoracic, Real-Time 2D With Doppler And Color Completed Flow 06/23/2015 11701 EKG Tracing & Interpretation Completed 06/18/2015 25289 Holter Monitoring 24 HR New Completed 06/15/2015 58950 Stress Test Supervsn W/Out I/R Completed 06/15/2015 89270 EKG, Interpretation Only Completed 06/15/2015 29236 Treadmill Interp/Report Only Completed 12/02/2014 00374 Nerve Conduction 03-04 Studies Completed 12/02/2014 71782 Needle Electromyography Complete, Five Or More Muscles Completed Studied 07/10/2014 52027 Inject/Drain Joint/Bursa Major W/O US Completed 07/10/2014 38489 Inject/Drain Joint/Bursa Major W/O US Completed 05/29/2014 Mammogram Completed 02/13/2014 36053 Rad Shoulder Comp, Min. 2 Views Completed 12/10/2013 Bone Mineral Density Test Completed 11/05/2013 16817 Removal Implant Deep Wire,Screw Nail,Chet Or Plate Completed 10/31/2013 49110 Rad Exam; Wrist, Comp, Min 3 Views Completed 09/26/2013 98696 Rad Exam; Wrist, Comp, Min 3 Views Completed 09/17/2013 94030 Open TX Distal Radial Intra-Articular FX W Fixation Of Completed 3 Or More 01/24/2013 35648 Rad Shoulder Comp, Min. 2 Views Completed 01/23/2013 Mammogram Completed 12/20/2012 73447 Stress Test Supervsn W/Out I/R Completed 12/20/2012 54364 Treadmill Interp/Report Only Completed 12/11/2012 42250 Holter Monitor Review (24 hr)dr review & interp only Completed 11/05/2012 Colonoscopy Completed 08/28/2012 Bone Mineral Density Test Completed 07/02/2012 Mammogram Completed 06/25/2012 Mammogram Completed 06/26/2002 Colonoscopy Completed Encounters Type Date Location Provider CPT E/M Dx Office Visit 11/16/2017 [facility] [address] G56.03 11:00a G60.8 Office Visit 09/20/2017 8:20a [facility] Internal Medicine Umesh Cardenas, 80135 L50.1 - Melissa Baker M.D.,FACP M35.3 Office Visit 08/24/2017 10:20a [facility] [place] [address] I47.1 [facility] FACC Office Visit 02/28/2017 10:30a [facility] Internal Medicine Umesh Cardenas, 87065 Z00.01 - Mahesh Crockett,FACP M54.16 I47.1 G60.8 Office Visit 02/21/2017 9:30a [facility] [address] M54.16 G60.8 G56.03 Office Visit 01/10/2017 10:00a Pulmonology And Sleep Jenny Connre, 02987 G47.33 Services Of [facility] JERI RN, [facility]- M25.561 R53.83 Office Visit 12/13/2016 1:40p [facility] Internal Medicine Umesh Lopez [address] R42 Mahesh Cardenas M.D.,FACP Office Visit 10/20/2016 9:30a [facility] [address] M54.14 G60.8 G60.9 Office Visit 09/15/2016 1:40p [facility] [place]ron [place], [address]50 I47.1 [facility] FACC Office Visit 09/06/2016 8:30a [facility] Internal Medicine Umesh Cardenas, 56660 Z01.810 - Mahesh Crockett,FACP T84.022S I47.1 N95.1 Office Visit 08/18/2016 2:30p [facility] [address] M54.2 M54.14 Office Visit 06/30/2016 1:40p [facility] [place] [address] I47.1 [facility] FACC Office Visit 03/31/2016 2:30p Orthopedic Services Afia Sheppard, 68597 M67.441 Of Melida Crockett Office Visit 03/17/2016 2:00p [facility] Internal Medicine Curtis Sosa, [place] [address] Z23 - [place] R22.9 Office Visit 12/21/2015 9:30a [facility] [address] M54.2 G60.8 M54.16 Office Visit 11/03/2015 11:30a [facility] Internal Umesh Cardenas, 50996 Z01.810 Medicine - Mahesh Crockett,FACP M13.812 M54.2 Office Visit 10/29/2015 9:30a [facility] [place] [address] G60.8 Services Of [facility] R26.89 M54.2 M54.16 R26.81 Office Visit 10/23/2015 8:30a Pulmonology And Sleep Jenny Conner, 39962 G47.33 Services Of [facility] BLAKE WILCOX, CONTINUOUS IMPROVEMENT LEAD- Office Visit 08/04/2015 10:15a [facility]ology [facility] Sleep Jenny Conner, 87999 G47.33 Services Of [facility] BLAKE WILCOX, CONTINUOUS IMPROVEMENT LEAD- Office Visit 07/24/2015 8:20a [facility] [place] [address] I47.1 [facility] FACC Office Visit 07/23/2015 8:30a [facility] Internal Medicine Umesh Cardenas, 42784 R53.83 - Melissa Baker M.D.,FACP Office Visit 06/23/2015 9:00a [facility] [address] I47.1 FACC F41.9 G47.33 Office Visit 06/16/2015 10:30a [facility] Internal Medicine - Umesh Cardenas, 20164 I47.1 Mahesh Crockett,FACP Office Visit 06/15/2015 12:45p [facility], Carin Marmolejo, 51849 R07.9 Hospitalists Keira I47.1 G47.33 M79.7 Office Visit 06/14/2015 12:44p [facility], Justino Estrella, 13029 R07.9 Hospitalists N.P. I47.1 G47.33 M79.7 Office Visit 06/03/2015 11:15a [facility] [address] G60.8 G56.02 Office Visit 01/02/2015 11:40a [facility] Internal Medicine Umesh Cardenas, 82553 427.0 - Tbjreson Baker M.D.,FACP Office Visit 10/07/2014 10:30a [facility] [place] [address] 354.0 Services Of [facility] 356.8 784.0 Office Visit 07/10/2014 9:30a Orthopedic Services Afia Sheppard, 10328 715.11 Of Melida Crockett 726.10 715.31 Office Visit 06/17/2014 9:00a [facility] [place] [address] 715.11 - [place] Office Visit 06/17/2014 10:00a Pulmonology And Sleep Jenny Conner, 67417 327.23 Services Of [facility] JERI RN, CONTINUOUS IMPROVEMENT LEAD- Office Visit 06/03/2014 9:00a [facility] Internal Medicine Kae Harmon, 20736 300.00 - [place] N.P. 727.1 782.0 V72.31 V76.10 V76.2 Office Visit 05/20/2014 10:00a [facility] [place] [address] 300.00 [place] Office Visit 04/16/2014 1:30p [facility] [place] [address] 300.00 [place] Office Visit 04/02/2014 2:00p [facility] Internal Medicine - Umesh Cardenas, 09728 715.09 Mahesh Crockett,FACP 780.79 Office Visit 02/13/2014 8:15a Orthopedic Services Afia Sheppard 19250 726.33 Of Melida Crockett 715.11 Office Visit 02/11/2014 11:50a [facility] Internal Medicine Umesh Cardenas, 59103 715.09 - Mahesh Crockett,FACP 726.33 Office Visit 12/31/2013 12:30p [facility] Internal Medicine Kae Harmon, N.P. 50945 726.33 - [place] 786.03 Office Visit 12/04/2013 8:50a [facility] Internal Medicine Umesh Cardenas, 50258 V70.0 - Mahesh Crockett,FACP 726.19 733.01 785.1 Office Visit 09/12/2013 10:00a Orthopedic Services Afia Sheppard, 62661 813.42 Of Melida Crockett Office Visit 02/26/2013 3:00p [facility] Internal Medicine Nurse Visit [place] 25381 380.4 - [place] Office Visit 01/24/2013 9:30a Orthopedic Services Ulices Mcrae M.D. 22656 726.10 Of [facility] Office Visit 12/20/2012 8:[facility]a [facility]ena 76031 785.1 Keira Wade 786.50 427.69 Office Visit 11/22/2012 3:30p [facility] Internal Medicine Kae Harmon, N.P. 92275 785.1 - [place] 726.19 Office Visit 09/13/2012 9:00a [facility] Internal Medicine Kae Harmon, N.P. 42178 380.4 - [place] 461.1 Office Visit 08/21/2012 8:30a [facility] Internal Medicine Kae Harmon, N.P. 21466 V82.81 - [place] V76.51 356.8 Office Visit 04/17/2012 4:00p [facility] Internal Medicine Kae Harmon, N.P. 13662 959.5 - [place] V04.81 Office Visit 12/13/2011 11:30a [facility] Internal Medicine Kae Harmon, N.P. 75793 V43.65 - [place] 719.46 726.19 Office Visit 10/06/2011 2:40p [facility] Internal Medicine Umesh Cardenas, 86518 466.0 - Mahesh Crockett,[facility] Office Visit 05/11/2011 1:20p DO Not Use [employer] AT Umesh Cardenas, 73038 780.79 Neelima Crockett,FAC 311 268.9 737.39 V77.91 Office Visit 03/04/2011 1:00p DO Not Use [employer] AT Umesh Cardenas, 47258 729.1 Neelima CrockettFACP 737.39 784.0 564.1 V03.82 V04.89 V05.8 Plan of Care Future Appointment(s):04/10/2018 9:45 am - Jenny Conner DNP, RN, CONTINUOUS IMPROVEMENT LEAD- at [facility]ology [facility] Services Of [facility]01/25/2018 2:20 pm - Kamron Estrada DO FAC at [facility]07/19/2018 9:45 am - Harjit Gregg MD at Neurohospitalist Hbozcc1003/06/2018 10:20 am - Umesh Cardenas M.D.,FACP at [facility] Internal Medicine - Czzpowllb34/26/2018 - Jenny Conner DNP, RN, CONTINUOUS IMPROVEMENT LEAD- BCG47.33 Obstructive sleep apnea (adult) (pediatric)New Orders:Sleep- HomecareSleep StudyFollow up:2 monthsRecommendations:Continue PAP device, Benefitting and compliant with treatment. Interested in Inspire(hypoglossal nerve stimulator), will need updated NPSG Cleaning Wipe off mask daily (baby wipe-no scent, or warm water) Clean mask, tubing, filter, and water chamber weekly in mild no scent dish soap and water. Hang todry. So-Clean is an option (not covered by insurance) Saline gel at night Neligh, Neilmed, or [place] surgilube If you have any sleepiness while driving you MUST avoid operating a vehicle or machinery. If you have difficulty with your equipment, or need to replace your mask or hoses, please contact your homecare agency. A weight change of 20 pounds or more may have an effect on your equipment; if you areexperiencing problems please call for an appointment. If you have any further questions, please call the [facility] at [phone].g47.14 Hypersomnia due to medical condition
--- NOTE | 2018-01-28 14:32 | UC ---
Dizzy HPI HPI Summary: 77 y/o female presents to the urgent care c/o Dizzy since yesterday, worse when moving her head, "sometimes"swirls" when sitting still. - History Of Current Complaint Chief Complaint: UCDizziness Stated Complaint: DIZZY Time Seen by Provider: 01/28/18 14:31 Hx Obtained From: Patient Hx Last Menstrual Period: post menopausre ?: No Onset/Duration: Gradual Onset, Lasting Days - 1 day, Still Present Timing: Seconds Severity Initially: Mild Severity Currently: Mild Pain Intensity: 0 Pain Scale Used: 0-10 Numeric - Allergies/Home Medications Allergies/Adverse Reactions: Allergies Allergy/AdvReac Type Severity Reaction Status Date / Time No Known Allergies Allergy Verified 01/28/18 13:28 PMH/Surg Hx/FS Hx/Imm Hx - Surgical History Surgical History: Yes Surgery Procedure, Year, and Place: LUMBAR [id number], THROWN FROM A HORSE 50 YEARS. BILAT CATARACT SURGERY NOVEMBER 2012, BILATERAL KNEE REPLACEMENTS. HAMMERTOES AND BUNION SURGERYS. [facility]. APPENDECTOMY [facility]. LEFT WRIST 2013 [facility]. TUBAL LIGATION. LT BREAST BIOPSY. TONSILS REMOVED A CHILD - Family History Known Family History: Positive: Hypertension - Social History Alcohol Use: Daily Alcohol Amount: 1 glass a day Substance Use Type: None Smoking Status (MU): Never Smoked Tobacco Type: Cigarettes Have You Smoked in the Last Year: No When Did the Patient Quit Smoking/Using Tobacco: Over 50 years ago - Immunization History Most Recent Influenza Vaccination: never Most Recent Tetanus Shot: 2011 Most Recent Pneumonia Vaccination: 2011 Physical Exam Vital Signs: Initial Vital Signs Temp 97.7 F 01/28/18 13:23 Pulse 57 01/28/18 13:23 Resp 16 01/28/18 13:23 BP 110/55 01/28/18 13:23 Pulse Ox 99 01/28/18 13:23 Dizzy Course/Dx - Differential Dx/Diagnosis Differential Diagnosis/HQI/PQRI: Benign Paroxysmal Positional Vertigo, Dysrhythmia, Labyrinthitis, Transient Ischemic Attack Provider Diagnoses: 1- Dizziness. 2- Bradycardia. 3-B/L external cerumen impaction Discharge - Discharge Plan Condition: Stable Disposition: HOME Prescriptions: Carbamide Peroxide 6.5% OTIC* [DEBROX 6.5% Otic*] 5 drop BOTH EARS BID #1 bottle Patient Education Materials: Benign Paroxysmal Positional Vertigo (ED), Cerumen Impaction (ED) Referrals: Umesh Cardenas MD [Primary Care Provider] - 2 Days Anthony Steinberg MD [Medical Doctor] - 2 Days Additional Instructions: 1- Please apply Debrox otic drops as directed to soften cerumen. 2- Take Meclizine PO to alleviate dizziness. Korina Maneuver can help you w/ the BPPV. 3- Please f/u w/ ypour ENT Dr Black on your appt on Monday01/30/2018 for further evaluation and treatment. 4- If dizziness continues severely and you develop SOB, chest pain please go Immediately to the ER for further evaluation and treatment. - Billing Disposition and Condition Condition: STABLE Disposition: Home
[2018-01-28 14:58] VITALS: BP 109/58
== END 2018-01-28 15:52 | disposition home or self-care (01) ==
LOC: UCEAST 13:04
DX: R42 Dizziness and giddiness (principal); R00.1 Bradycardia, unspecified; H61.23 Impacted cerumen, bilateral; Z96.653 Presence of artificial knee joint, bilateral; Z82.49 Family history of ischemic heart disease and other diseases of the circulatory system
CPT/HCPCS: 93005; 99213; G0463

== ENCOUNTER 2019-04-19 09:49 | Day surgery (SDC) | payer MEDICARE ==
--- NOTE | 2019-04-15 09:22 | HP ---
PREOPERATIVE HISTORY AND PHYSICAL: DATE OF ADMISSION/SURGERY: 04/19/19 - [facility] DATE OF OFFICE VISIT/ENCOUNTER: 04/11/19 ATTENDING SURGEON: Afia Sheppard MD * (DICTATED BY KALI HOLLAND) PROCEDURE: Mass excision, right long finger, DIP joint fusion. HISTORY OF PRESENT ILLNESS: This is a 78-year-old female who complains of a painful mass in her right middle finger. She noticed it about a month ago. It bothers her when she tries to open bottles or when any pressure is applied. She gets relief when she rests the finger. She has also noticed that the end of the finger is curling towards her index finger and she has some pain when she moves her finger. 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 She finds that difficult sometimes. X-rays of the finger show obvious degenerative changes at the DIP joint and a significant angular deformity at the DIP joint. She has consented to proceed with surgical intervention for removal of the mass and fusion at the DIP joint. PAST MEDICAL HISTORY: 1. Sleep apnea with a surgically implanted device. 2. History of heart palpitations. PAST SURGICAL HISTORY: 1. Low back lumbar fusion with wilfrido placement. 2. Bilateral total knee arthroplasties. 3. Toe surgery. 4. Appendectomy. 5. Tonsillectomy. 6. Left shoulder surgery. 7. Surgery for sleep apnea with device implantation. 8. Tubal ligation. 9. Left wrist surgery for finger cyst excision. The patient reports no specific problems with anesthesia. She has had headaches at times with anesthesia. MEDICATIONS: 1. CBD oil p.r.n. pain. 2. Calcium 1500 mg daily. 3. Curcumin with Boswellia. 4. Cymbalta 60 mg daily. 5. Gabapentin 100 mg 4 caps twice a day. 6. Holy basil p.r.n. 7. Lorazepam 0.5 mg 1 to 2 q.8 hours p.r.n. 8. Magnesium daily. 9. [place] 3 daily. 10. Probiotic formula daily. 11. Turmeric 4 daily. 12. Vitamin B12 daily. 13. Vitamin D daily. 14. Zinc 30 mg daily. ALLERGIES: No known drug allergies. FAMILY MEDICAL HISTORY: Heart disease, stroke, cancer. SOCIAL HISTORY: The patient is employed at [employer]. She denies tobacco use and recreational drug use. She drinks alcohol on regular occasion, approximately a glass of wine per day. REVIEW OF SYSTEMS: Negative for general, cephalic, cardiovascular, respiratory , GI, , other musculoskeletal, integumentary, endocrine, neurologic, and hematologic symptoms. Infectious Disease: Negative for MRSA, hepatitis C, HIV. PHYSICAL EXAMINATION GENERAL: A well-developed, well-nourished 78-year-old female, in no acute distress. VITAL SIGNS: Height 5 feet 4-1/2 inches, weight 141 pounds, pulse rate 68, blood pressure 122/62. HEENT: Normocephalic, atraumatic. The patient has hearing aids. Pupils are equal, round, and reactive to light and accommodation. Extraocular movements are intact. Throat is clear. NECK: Supple. No palpable lymph nodes. PULMONARY: Lungs are clear to auscultation bilaterally. No wheezes, rales, or rhonchi. CARDIOVASCULAR: Regular rate and rhythm. S1, S2. No murmurs, rubs, or gallops. No edema. ABDOMEN: Positive bowel sounds. Soft, nontender. NEUROLOGICAL: Alert and oriented x3. Cranial nerves II through XII are intact. Sensation is intact to light touch. MUSCULOSKELETAL: On exam of her right hand, she has obvious degenerative changes in some of her fingers and a significant angular deformity of the middle finger at the DIP joint. She can make a good fist with both hands, but has some increased pain with flexion at the DIP joint of the long finger. She also has a painful mass on the volar radial aspect at the DIP joint. It feels cystic in nature. Neurovascular function is intact. Skin is intact. 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 PLAN: The patient is scheduled to undergo a mass excision in the right long finger and DIP joint fusion with Dr. Sheppard on 04/19/19. She will return to the office in 10 days postop for followup and suture removal. A prescription for [place] was e-scribed to the patient's pharmacy for postoperative pain management. KALI HOLLAND [id number]/[facility] #: [id number] [facility]
[~2019-04-19 09:49] MED LIST: Buffered Lidocaine 1% SYRIN* 1 ML/SYRINGE INTRADERM ONE; Lactated Ringers 1000 ML Bag* 1,000 ML IV SCH
[2019-04-19] MEDS ORDERED: ceFAZolin 2 GM PREMIX in ORs 0 GM/0 ML BAG ONE (09:58)
[2019-04-19] MEDS ORDERED: Lidocaine 1% INJ* 10 MG/ML 30 ML SDV ONE (10:35)
[2019-04-19] MEDS ORDERED: Lidocaine 2% PF * 5 ML VIAL ONE (11:11)
[2019-04-19] MEDS ORDERED: Propofol* 10 MG/ML 20 ML BTL ONE (11:11)
[2019-04-19] MEDS ORDERED: Naloxone* 0.4 MG/ML 1 ML VIAL IV PRN (11:22)
[2019-04-19 12:29] VITALS: BP 132/74
--- NOTE | 2019-04-19 19:12 | OP ---
DATE OF OPERATION: 04/19/19 [facility] DATE OF : 44 SURGEON: Afia Sheppard MD CLOTH FOLDER MACHINE: KALI Blandon ANESTHESIA: Local MAC. PRE-OP DIAGNOSES: Right long finger mass and right distal interphalangeal joint arthritis. POST-OP DIAGNOSES: Right long finger mass and right distal interphalangeal joint arthritis. OPERATIVE PROCEDURE: Right long finger mass excision. INDICATIONS FOR PROCEDURE: Marylin is a 78-year-old woman, who has a painful mass on the volar radial aspect of her right middle finger. She also has significant DIP joint arthritis with an angular deformity of the joint and x- ray evidence of arthritis. Initially, the patient was scheduled for a DIP fusion, but changed her mind and decided she did not want to lose the range of motion and did not want the lengthy healing time. She presents for mass excision of the right middle finger. ESTIMATED BLOOD LOSS: Zero. TOURNIQUET TIME: About 10 minutes. DESCRIPTION OF PROCEDURE: The patient was brought to the operating room, was given a sedation anesthetic and a digital block with 10 cc of 1% plain lidocaine. The skin of her right hand and forearm was prepped and draped in the usual sterile fashion. The middle finger was exsanguinated with a Tourni- Cot, which was left in place during the procedure. A chevron incision was made centered over the mass and we dissected bluntly through the subcutaneous tissue. The mass appeared to be a ganglion cyst and it was immediately adjacent to the digital nerve, was carefully dissected away from the nerve and then removed in its entirety and sent for pathology. The wound was irrigated and the skin edges were reapproximated with 4-0 nylon suture. The wounds were dressed with Xeroform, 4x4, Webril, and Coban. The patient tolerated the procedure well and was brought to the recovery room in good condition. [id number]/[facility] #: [id number] [facility]
== END 2019-04-19 12:25 | disposition home or self-care (01) ==
LOC: OREAST 09:49
PROVIDERS: ATTEND Orthopaedic Surgery
DX: M67.441 Ganglion, right hand (principal); M19.041 Primary osteoarthritis, right hand; E78.5 Hyperlipidemia, unspecified; G47.33 Obstructive sleep apnea (adult) (pediatric); M79.7 Fibromyalgia
CPT/HCPCS: 88304; J0690; J2704

== ENCOUNTER 2019-05-17 14:51 | Emergency (ER) | payer MEDICARE ==
--- NOTE | 2019-05-17 15:14 | ED ---
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 She developed diaphoresis that resolved but returned before resolving again. She notes a near syncopal event with dizziness as well. After the event, she developed shortness of breath and mild chest pressure in the mid-sternal chest radiating into the face, which was not present with the palpitations. Currently, she is feeling improved, but she is fatigued with symptoms rated 2/10 in severity. EMS administered 6mg and 12mg Adenosine en route, which broke the SVT rate she was in upon their arrival. She notes a history of similar events without associated shortness of breath, but she does not have a diagnosed cardiac history other than occasional tachycardia. Her tax clerk is Dr. Estrada, who believes the episodes are secondary to anxiety. PMHx: anxiety, depression. FHx: HTN. Nonsmoker, occasional EtOH, no substance use. Medications reviewed. Allergies noted. - History of Current Complaint Time Seen by Provider: 05/17/19 15:02 Hx Obtained From: Patient Onset/Duration: Sudden Onset, Lasting Minutes, Resolved Severity Initially: Severe Severity Currently: Mild Character: Fast Aggravating: Nothing Alleviating: Nothing Associated Signs & Symptoms: Dizzy, Chest Pain - chest pressure mid-sternal radiating into face, Shortness of Breath, Diaphoresis - Allergy/Home Medications Allergies/Adverse Reactions: Allergies Allergy/AdvReac Type Severity Reaction Status Date / Time No Known Allergies Allergy Verified 04/19/19 09:58 PMH/Surg Hx/FS Hx/Imm Hx Endocrine/Hematology History: Denies: Hx Diabetes, Hx Thyroid Disease Cardiovascular History: Reports: Other Cardiovascular Problems/Disorders - HAS OCCASSIONALLY TACHYCARDIA - CARDIAC MD AWARE Denies: Hx Angina, Hx Coronary Artery Disease, Hx Hypercholesterolemia, Hx Hypertension, Hx Myocardial Infarction, Hx Pacemaker/ICD Respiratory History: Reports: Hx Sleep Apnea Denies: Hx Asthma, Hx Chronic Obstructive Pulmonary Disease (COPD), Other Respiratory Problems/Disorders GI History: Reports: Hx Irritable Bowel - UNDER CONTROL WITH DIET Denies: Hx Ulcer, Other GI Disorders History: Reports: Hx Kidney Stones - passed Musculoskeletal History: Reports: Hx Arthritis - hands, toes, Hx Back Problems - Rods in place Denies: Hx Rheumatoid Arthritis, Hx Osteoporosis, Other Musculoskeletal History Sensory History: Reports: Hx Cataracts - SURGERY DONE, Hx Contacts or Glasses, Hx Hearing Aid - BILAT Opthamlomology History: Reports: Hx Cataracts - SURGERY DONE, Hx Contacts or Glasses Neurological History: Reports: Hx Migraine - past, Hx Nerve Disease - fibromyalgia Denies: Other Neuro Impairments/Disorders Psychiatric History: Reports: Hx Anxiety, Hx Depression Denies: Hx Panic Disorder - Cancer History Hx Chemotherapy: No Hx Radiation Therapy: No - Surgical History Surgical History: Yes Surgery Procedure, Year, and Place: LUMBAR [id number], THROWN FROM A HORSE 50 YEARS. BILAT CATARACT SURGERY NOVEMBER 2012,. BILATERAL KNEE REPLACEMENTS, 2014. HAMMERTOES AND BUNION SURGERYS. [facility]. [facility]OMY [facility]. LEFT WRIST 2014 [facility]. LT BREAST BIOPSY. TONSILS REMOVED A CHILD. left total shoulder Hx Anesthesia Reactions: No Infectious Disease History: No Infectious Disease History: Denies: Hx Clostridium Difficile, Hx Hepatitis, Hx Human Immunodeficiency Virus (HIV), Hx Shingles, Hx Tuberculosis, Hx Known/Suspected VRE, Hx Known/ Suspected VRSA, History Other Infectious Disease, Traveled Outside the [place] in Last 30 Days - Family History Known Family History: Positive: Hypertension - Social History Alcohol Use: Occasionally Hx Substance Use: No Substance Use Type: Reports: None Hx Tobacco Use: No Smoking Status (MU): Never Smoked Tobacco Type: Cigarettes Have You Smoked in the Last Year: No Review of Systems Positive: Fatigue, Skin Diaphoresis Positive: Palpitations - fast heart rate, Chest Pain - pressure Positive: Shortness Of Breath Neurological: Other - dizziness, near syncope All Other Systems Reviewed And Are Negative: Yes Physical Exam - Summary Physical Exam Summary: VITAL SIGNS: Reviewed. GENERAL: Patient is a well-developed and nourished female who is lying comfortable in the stretcher. Patient is not in any acute respiratory distress. HEAD AND FACE: No signs of trauma. No ecchymosis, hematomas or skull depressions. No sinus tenderness. EYES: PERRLA, EOMI x 2, No injected conjunctiva, no nystagmus. EARS: Hearing grossly intact. Ear canals and tympanic membranes are within normal limits. MOUTH: Oropharynx within normal limits. NECK: Supple, trachea is midline, no adenopathy, no JVD, no carotid bruit, no c- spine tenderness, neck with full ROM. CHEST: Symmetric, no tenderness at palpation. LUNGS: Clear to auscultation bilaterally. No wheezing or crackles. CVS: Regular rate and rhythm, S1 and S2 present, no murmurs or gallops appreciated. ABDOMEN: Soft, non-tender. No signs of distention. No rebound, no guarding, and no masses palpated. Bowel sounds are normal. EXTREMITIES: FROM in all major joints, no edema, no cyanosis or clubbing. NEURO: Alert and oriented x 3. No acute neurological deficits. Speech is normal and follows commands. SKIN: Dry and warm. Triage Information Reviewed: Yes Vital Signs On Initial Exam: Initial Vitals Temp Pulse Resp BP Pulse Ox 96.8 F 91 17 131/72 99 05/17/19 15:01 05/17/19 15:01 05/17/19 15:01 05/17/19 15:01 05/17/19 15:01 Vital Signs Reviewed: Yes Procedures - Sedation Patient Received Moderate/Deep Sedation with Procedure: No Diagnostics - Vital Signs Vital Signs Temp Pulse Resp BP Pulse Ox 05/17/19 15:01 96.8 F 91 17 131/72 99 - Laboratory Result Diagrams: 05/17/19 15:34 05/17/19 15:34 Lab Statement: Any lab studies that have been ordered have been reviewed, and results considered in the medical decision making process. - Radiology Chest X-Ray Radiology Interpretation Completed By: Radiologist Summary of Radiographic Findings: Impression: Hyperinflation. No active cardiopulmonary disease. ED physician has reviewed this report. - EKG 1515 Cardiac Rate: NL - 86 BPM EKG Rhythm: Sinus Rhythm Summary of EKG Findings: EKG at 1515 reveals normal sinus rhythm at [address] elevations. ED physician has reviewed and interpreted this EKG. Re-Evaluation - Re-Evaluation First Eval Re-Evaluation Time: 16:35 Change: Improved Comment: Patient remains stable in the ED. We discussed results and plan for discharge. Course/Dx - Course Assessment/Plan: This patient is a 78-year-old female who presents to the emergency department with a chief complaint of having palpitations, shortness of breath, dizziness. Has per EMS the patient was in an SVT. The patient had 6 mg of adenosine and then 12mg. Now the patient is in a normal sinus rhythm without any complaints. Blood work without any significant abnormality except for BUN of 28. Troponin of 0.01. Chest x-ray impression: Hyperinflation. No acute cardiopulmonary disease. In the ED course, the patient was observed for a couple hours and the symptoms have remained stable. I consulted Dr. Estrada, the patients tax clerk, and he recommends placing the patient on Bisoprolol 5 mg once a day. The patient will be discharged home with follow-up with Dr. Estrada. I discussed all the findings and test results with the patient. Patient was instructed to return to the emergency room immediately if any of the symptoms return or worsen. Plan of care was discussed with the patient, and she understands and agrees. All questions were answered at patient satisfaction. There were no further complaints or concerns. Lung exam before discharge: CTA B/ L. Good air exchange. No wheezing or crackles heard. CVS: S1 and S2 present. No murmurs appreciated. Patient is alert and oriented x 3. Patient is hemodynamically stable. Patient will be discharged home with follow up PCP in the next 2-3 days. - Diagnoses Differential Diagnosis/HQI/PQRI: Positive: Hyperventilation, Panic Disorder, Paroxymal SVT, V-Tach Provider Diagnoses: SVT (supraventricular tachycardia) - Physician Notifications Discussed Care Of Patient With: Kamron Estrada - cardiology Time Discussed With Above Provider: 16:30 Instructed by Provider To: Other - I discussed the patient's case with Dr. Estrada, and he recommends discharge with prescription for Bisoprolol 5mg once daily and follow up in his office. Discharge ED - Sign-Out/Discharge Documenting (check all that apply): Patient Departure - Patient will be discharged home. - Discharge Plan Condition: Stable Disposition: HOME Prescriptions: Bisoprolol TAB* [Zebeta TAB*] 5 mg PO DAILY #15 tab Patient Education Materials: Supraventricular Tachycardia (ED) Referrals: Kamron Estrada DO [Medical Doctor] - 1 Day Kathy Glynn MD [Primary Care Provider] - 3 Days Additional Instructions: Please take medications as prescribed. Follow up with your primary care provider in 2-3 days. Return to the emergency department for any new or worsening symptoms. - Billing Disposition and Condition Condition: STABLE Disposition: Home - Attestation Statements Document Initiated by Scribe: Yes Documenting Scribe: Glenda Linton Provider For Whom Jessicaibreshma is Documenting (Include Credential): Dr. Gael Justice MD Scribe Attestation: I, Glenda Linton, scribed for Dr. Gael Justice MD on 05/18/19 at 1152. Scribe Documentation Reviewed: Yes Provider Attestation: The documentation as recorded by the Glenda amato accurately reflects the service I personally performed and the decisions made by me, Dr. Gael Justice MD Status of Scribe Document: Viewed
--- OUTSIDE RECORDS SUMMARY | 2019-05-17 15:19 | XMS REPORT | Continuity of Care Document ---
:1940 External Reference #:[id number] Author Name Kathy Glynn MD (transmitted by agent of provider Selena Tran) Address [address] [facility] [facility], [place] [address] Care Team Providers Name Role Phone Afia Sheppard M.D. - Surgery of Care Team Information Food Consultant [phone] the Hand Kamron Estrada DO, FAC - Care Team Information Food Consultant [phone] Cardiovascular Disease Da Wiley MD - Sports Medicine Care Team Information Food Consultant [phone] Kathy Glynn MD - Internal Medicine Care Team Information Food Consultant [phone] Problems Active Problems Provider Date Depressive disorder Umesh Cardenas M.D.,FACP Onset: 05/11/2011 Paroxysmal supraventricular Umesh Cardenas M.D.,FACP Onset: 12/13/2016 tachycardia Kyphoscoliosis and scoliosis Umesh Cardenas M.D.,FACP Onset: 05/11/2011 Hyperlipidemia Umesh Cardenas M.D.,FACP Onset: 11/28/2013 Primary fibromyalgia syndrome Umesh Cardenas M.D.,FACP Onset: 04/02/2014 Obstructive sleep apnea of adult Jenny Conner DNP, RN, Onset: 06/17/2014 CV/CVN CV TSC SYSTEM OPERATOR-BC Note: on CPAP Idiopathic peripheral neuropathy Harjit Gregg MD Onset: 06/03/2015 Carpal tunnel syndrome of left wrist Harjit Gregg MD Onset: 06/03/2015 Abnormal gait Harjit Gregg MD Onset: 10/29/2015 Neck pain Harjit Gregg MD Onset: 10/29/2015 Lumbar radiculopathy Harjit Gregg MD Onset: 10/29/2015 Localized, primary osteoarthritis of Umesh Cardenas M.D.,FACP Onset: 03/2016 the shoulder region Note: LEFT Thoracic and lumbosacral neuritis Harjit Gregg MD Onset: 08/18/2016 Bilateral carpal tunnel syndrome Harjit Gregg MD Onset: 11/16/2017 Social History Type Date Description Comments Sex Unknown Tobacco Use Start: Unknown Never Smoked Cigarettes Smoking Status Reviewed: 05/15/19 Never Smoked Cigarettes ETOH Use 03/06/2018 Consumes 1 glass of wine per day Tobacco Use Start: Unknown Patient has never smoked Recreational Drug Use Denies Drug Use Exercise Type/Frequency Riley Chi Allergies, Adverse Reactions, Alerts Description No Known Drug Allergies Medications Active Medications SIG Qnty Indications Ordering Date Provider Hydrocodone take 1 tab by mouth 15tabs Afia Sheppard, 04/17/2019 Bitartrate/Acetamin every 4-6 hours as M.D. ophen needed pain For use 5-325mg after surgery Tablets Gabapentin 4 caps by mouth 240caps G60.8 Harjit Gregg, 09/20/2017 100mg twice a day Capsules Cymbalta 1 by mouth every 90caps Harjit Gregg, 04/13/2015 60mg Caps day MD DR Hawley Lorazepam 1-2 by mouth every 30tabs Umesh Lopez 0.5mg 8 hours as needed Keira Cardenas,FACMatthew Tablets [place] 3 daily Unknown Capsules Vitamin B-12 daily Unknown Probiotic Formula daily Unknown Capsules Holy Basil Homeopathic prn Unknown Vitamin D 1 by mouth every Unknown (Cholecalciferol) day Capsules Magnesium 1 by mouth every Unknown Tablets day Calcium daily Unknown 1500mg Tablets Zinc 1 by mouth every Unknown 30mg Capsules day CBD Oil when needed for Unknown pain Turmeric Curcumin With [place]wellia. 5 Unknown by mouth one time Capsules per day History Medications [place] one tab by mouth 15tabs Afia Shepprad, 04/12/2019 - 5-325mg every 4-6 hours as M.DPraveena 04/15/2019 Tablets needed pain For use after surgery Medications Administered in Office Medication SIG Qnty Indications Ordering Provider Date Depomedrol 80MG Afia Sheppard M.D. 07/10/2014 Injection Depomedrol 80MG Afia Sheppard M.D. 07/10/2014 Injection Immunizations CPT Code Status Date Vaccine Lot # [id number] Given 10/08/2015 Pneumococcal Conjugate Vaccine 13 Valent For [id number] Intramuscular Use 51927 Given 04/17/2012 Tdap - Tetanus/Diptheria/Acellular Pertussis [id number] Q2038 Given 03/23/2012 Fluzone Vaccine [id number] 11372 Given 03/04/2011 Zoster (Zostavax) [id number] 90799 Given 03/04/2011 Pneumonia Vaccine [id number] 10386 Given 08/16/2004 Td Toxoids Adsorbed For Use 7Yrs Or Older For Intramuscular Use 50188 Refused 05/11/2011 Influenza Virus 3Yrs & Over Vital Signs Date Vital Result Comment 05/15/2019 11:05am Height 65.5 inches 5'5.50" Weight 142.00 lb Heart Rate 76 /min BP Systolic Sitting 118 mmHg BP Diastolic Sitting 70 mmHg BP Systolic Standing 112 mmHg BP Diastolic Standing 72 mmHg BP Systolic Lying Down 116 mmHg BP Diastolic Lying Down 66 mmHg Body Temperature 98.2 F O2 % BldC Oximetry 97 % BMI (Body Mass Index) 23.3 kg/m2 05/09/2019 9:53am Height 65.5 inches 5'5.50" Weight 142.25 lb Heart Rate 72 /min BP Systolic Sitting 118 mmHg BP Diastolic Sitting 70 mmHg Respiratory Rate 16 /min BMI (Body Mass Index) 23.3 kg/m2 Results Test Acquired Date Facility Test Result H/L Range Note Surgical 04/19/2019 [facility] Surgical SEE RESULT 1, [address] [place] [address] [phone] PDFReport [id number] <SEE NOTE> CBC Auto 03/14/2019 [facility] White Blood 6.0 10^3/uL Normal 3.5-10.[address] [place] [address] [phone] Red Blood Count 4.27 10^6/uL Normal 3.70-4.87 Hemoglobin 13.5 g/dL Normal 12.0-16.0 Hematocrit 41 % Normal 35-47 Mean Corpuscular Volume 95 fL Normal 80-97 Mean Corpuscular Hemoglobin 32 pg High 27-31 Mean Corpuscular HGB Conc 34 g/dL Normal 31-36 Red Cell Distribution Width 14 % Normal 10-15 Platelet Count 253 10^3/uL Normal 150-450 Mean Platelet Volume 9.3 fL Normal 7.4-10.4 Abs Neutrophils 3.0 10^3/uL Normal 1.5-7.7 Abs Lymphocytes 2.0 10^3/uL Normal 1.0-4.8 Abs Monocytes 0.4 10^3/uL Normal 0-0.8 Abs Eosinophils 0.6 10^3/uL Normal 0-0.6 Abs Basophils 0.1 10^3/uL Normal 0-0.2 Abs Nucleated RBC 0.0 10^3/uL Granulocyte % 49.7 % Lymphocyte % 32.8 % Monocyte % 6.3 % Eosinophil % 10.1 % Basophil % 1.1 % Nucleated Red Blood Cells % 0.3 Comp Metabolic 03/14/2019 [facility] Sodium 138 mmol/L Normal 135-[address] [place] [address] [phone] Potassium 4.4 mmol/L Normal 3.5-5.0 Chloride 102 mmol/L Normal 101-111 Co2 Carbon Dioxide 30 mmol/L Normal 22-32 Anion Gap 6 mmol/L Normal 2-11 Glucose 96 mg/dL Normal 70-100 Blood Urea Nitrogen 24 mg/dL Normal 6-24 Creatinine 1.19 mg/dL High 0.51-0.95 BUN/Creatinine Ratio 20.2 High 8-20 Calcium 9.4 mg/dL Normal 8.6-10.3 Total Protein 5.7 g/dL Low 6.4-8.9 Albumin 4.2 g/dL Normal 3.2-5.2 Globulin 1.5 g/dL Low 2-4 Albumin/Globulin Ratio 2.8 Normal 1-3 Total Bilirubin 0.40 mg/dL Normal 0.2-1.0 Alkaline Phosphatase 81 U/L Normal 34-104 Alt 20 U/L Normal 7-52 Ast 26 U/L Normal 13-39 Egfr Non- 44.1 >60 Egfr 53.4 >60 3 Laboratory 03/14/2019 [facility] TSH (Thyroid 1.88 Normal 0.34 -5.60 test finding [address] Stim Horm) mcIU/[place] [address] [phone] C Reactive Protein < 1.00 mg/L Normal <8.01 1 [id number] 2 SEE RESULT BELOW Name: EAGLE FIGUEREDO : [address]: Afia Sheppard MD Acct: [id number] Unit: [id number] AGE: 78 Location: [facility] Re04/19/19 SEX: F Status: AWA [place] SPEC: [id number] ELIZABETH: 04/19/[address] [facility] [address]: Afia Sheppard MD REQ: [id number] RECD: 04/19/19 STATUS: SOUT _ ORDERED: LEVEL 3 COMMENTS: [id number] FINAL DIAGNOSIS Soft tissue, right middle finger, excision: -- Ganglion cyst. PRE-OPERATIVE DIAGNOSIS Cystic mass right middle finger GROSS DESCRIPTION The specimen is received in formalin labeled, Ganglion Cyst Right Middle Finger, and consists of a 1.2 x 0.7 x 0.4 cm lamar-pink irregular wrinkled focally disrupted unilocular cyst with scant adherent yellow fat. The specimen is inked, serially sectioned and entirely submitted in one cassette. Signed by and Reported on: Ha Gonzalez MD 1225 END OF REPORT DEPARTMENT OF PATHOLOGY, [address] [place] [address] Ha Gonzalez M.D. Director [facility] # [id number] 3 Because ethnic data is not always readily [...] 15-29 5 Kidney failure <15 (or dialysis) Procedures Date Code Description Status 04/19/2019 11495 Excision Tendon Sheath Ganglion /Or Joint Capsule Hand Completed Or Finger 04/19/2019 93597 Excision Tendon Sheath Ganglion /Or Joint Capsule Hand Completed Or Finger 01/15/2019 [id number] Mammogram Completed 10/19/2017 [id number] Mammogram Completed 10/18/2016 [id number] Mammogram Completed 12/22/2015 [id number] Colonoscopy Completed 10/15/2015 [id number] Mammogram Completed 05/29/2014 [id number] Mammogram Completed 12/10/2013 [id number] Bone Mineral Density Test Completed 01/23/2013 [id number] Mammogram Completed 11/05/2012 69494560 Colonoscopy Completed 08/28/2012 325874100 Bone Mineral Density Test Completed 07/02/2012 13195026 Mammogram Completed 06/25/2012 07889750 Mammogram Completed 06/26/2002 [id number] Colonoscopy Completed Medical Devices Description No Information Available Encounters Type Date Location Provider Dx Diagnosis Office Visit 04/16/2019 [facility] Conner, G47.33 Obstructive sleep 10:30a [facility], CV/CVN CV TSC SYSTEM OPERATOR-BC apnea (adult) [facility] (pediatric) Office Visit 04/11/2019 [facility] Afia Sheppard, M19.041 Primary 2:30p at [facility] osteoarthritis, right hand R22.31 Localized swelling, mass and lump, right upper limb Assessments Date Code Description Provider 05/15/2019 R42 Dizziness and giddiness Kathy Glynn MD 05/09/2019 R51 Headache Harjit Gregg MD 05/09/2019 G60.9 Hereditary and idiopathic neuropathy, Harjit Gregg MD unspecified 04/29/2019 M67.441 Ganglion, right hand Afia Sheppard M.D. 04/29/2019 Z48.02 Encounter for removal of sutures Afia Sheppard M.D. 04/19/2019 M67.441 Ganglion, right hand Clementine Childress, RPA-C 04/19/2019 M67.441 Ganglion, right hand Afia Sheppard M.D. 04/16/2019 G47.33 Obstructive sleep apnea (adult) Jenny Conner DNP, RN, (pediatric) CV/CVN CV TSC SYSTEM OPERATOR-BC 04/11/2019 M19.041 Primary osteoarthritis, right hand Afia Sheppard M.D. 04/11/2019 R22.31 Localized swelling, mass and lump, Afia Sheppard M.D. right upper limb 03/12/2019 Z00.00 Encounter for general adult medical Kathy Glynn MD examination without abnormal findings 03/12/2019 I47.1 Supraventricular tachycardia Kathy Glynn MD 03/12/2019 R53.83 Other fatigue Kathy Glynn MD Plan of Treatment Future Appointment(s):11/07/2019 10:15 am - Harjit Gregg MD at [facility]10/15/2019 10:30 am - Jenny Conner DNP, RN, CV/CVN CV TSC SYSTEM OPERATOR- BC at [facility]03/17/2020 11:20 am - Kathy Glynn MD at [facility] Internal Medicine - [facility]05/15/2019 - Kathy Glynn, MDR42 Dizziness and giddinessNew Xrays:Cta Head 03736 & Neck 68693 W/Contrast, Ordered: Functional Status Description No Information Available Mental Status Description No Information Available Referrals Description No Information Available
--- OUTSIDE RECORDS SUMMARY | 2019-05-17 15:19 | XMS REPORT | Continuity of Care Document ---
:1940 External Reference #:[id number] Author Name Harjit Gregg MD (transmitted by agent of provider Priyanka Alvarado) Address [address] [facility], [place] [address] Care Team Providers Name Role Phone Afia Sheppard M.D. - Surgery of Care Team Information Event Manager the Hand Kamron Estrada DO, FAC - Care Team Information Event Manager [phone] Cardiovascular Disease Da Wiley MD - Sports Medicine Care Team Information Event Manager Kathy Glynn MD - Internal Medicine Care Team Information Event Manager [phone] Problems Active Problems Provider Date Depressive disorder Umesh Cardenas M.D.,FACP Onset: 05/11/2011 Paroxysmal supraventricular Umesh Cardenas M.D.,FACP Onset: 12/13/2016 tachycardia Kyphoscoliosis and scoliosis Umesh Cardenas M.D.,FACP Onset: 05/11/2011 Hyperlipidemia Umesh Cardenas M.D.,FACP Onset: 11/28/2013 Primary fibromyalgia syndrome Umesh Cardenas M.D.,FACP Onset: 04/02/2014 Obstructive sleep apnea of adult Jenny Conner DNP, RN, Onset: 06/17/2014 MORTGAGE UNDERWRITER-BC Note: on CPAP Idiopathic peripheral neuropathy Harjit [...] Unknown Never Smoked Cigarettes Smoking Status Reviewed: 05/09/19 Never Smoked Cigarettes ETOH Use 03/06/2018 Consumes [...] Capsules Cymbalta 1 by mouth every 90caps Harjti Gregg, 04/13/2015 60mg Caps day MD DR Hawley Lorazepam 1-2 by mouth every 30tabs Umesh Lopez 0.5mg 8 hours as needed Keira Cardenas,FACP Tablets [place] 3 daily Unknown Capsules Vitamin B-12 daily [...] one time Capsules per day History Medications [place] one tab by mouth 15tabs Afia Sheppard, 04/12/2019 - 5-325mg every 4-6 hours as M.DPraveena 04/15/2019 Tablets needed pain For use after surgery Medications Administered in Office Medication SIG Qnty Indications Ordering Provider Date Depomedrol 80MG Afia Sheppard M.D. 07/10/2014 Injection Depomedrol 80MG Afia Sheppard M.D. 07/10/2014 Injection Immunizations CPT Code Status Date Vaccine Lot # [id number] Given 10/08/2015 Pneumococcal Conjugate Vaccine 13 Valent For [id number] Intramuscular Use 42898 Given 04/17/2012 Tdap - Tetanus/Diptheria/Acellular Pertussis [id number] Q2038 Given 03/23/2012 Fluzone Vaccine [id number] 16162 Given 03/04/2011 Zoster (Zostavax) [id number] 34144 Given 03/04/2011 Pneumonia Vaccine [id number] 41509 Given 08/16/2004 Td Toxoids Adsorbed For Use 7Yrs Or Older For Intramuscular Use 38498 Refused 05/11/2011 Influenza Virus 3Yrs & Over Vital Signs Date Vital Result Comment 05/09/2019 9:53am Height 65.5 inches 5'5.50" Weight 142.25 lb Heart Rate 72 /min BP Systolic Sitting 118 mmHg BP Diastolic Sitting 70 mmHg Respiratory Rate 16 /min BMI (Body Mass Index) 23.3 kg/m2 04/29/2019 10:46am Height 65.5 inches 5'5.50" Weight 144.50 lb Heart Rate 74 /min BP Systolic Sitting 126 mmHg Lue reg cuff BP Diastolic Sitting 70 mmHg Lue reg cuff Respiratory Rate 14 /min Body Temperature 96.4 F Tympanic BMI (Body Mass Index) 23.7 kg/m2 Results Test Acquired Date Facility Test Result H/L Range Note Surgical 04/19/2019 [facility] Surgical SEE RESULT 1, [address] [place] [address] [phone] PDFReport [id number] <SEE NOTE> CBC Auto 03/14/2019 [facility] White Blood 6.0 10^3/uL Normal 3.5-10.[address] [place] [address] [phone] Red Blood Count 4.27 10^6/uL Normal 3.70-4.87 [...] Blood Cells % 0.3 Comp Metabolic 03/14/2019 [facility] Sodium 138 mmol/L Normal 135-[address] [place] [address] [phone] Potassium 4.4 mmol/L Normal 3.5-5.0 Chloride 102 [...] >60 Egfr 53.4 >60 3 Laboratory 03/14/2019 [facility] TSH (Thyroid 1.88 Normal 0.34 -5.60 test finding [address] Stim Horm) mcIU/[place] [address] [phone] C Reactive Protein < 1.00 mg/L Normal <8.01 1 [id number] 2 SEE RESULT BELOW Name: EAGLE FIGUEREDO : [address]: Afia Sheppard MD Acct: [id number] Unit: [id number] AGE: 78 Location: [facility] Re04/19/19 SEX: F Status: AWA [facility] SPEC: [id number] ELIZABETH: 04/19/191130 [facility] DR: Afia Sheppard MD REQ: [id number] RECD: 04/19/19 STATUS: SOUT _ ORDERED: LEVEL 3 COMMENTS: [id number] FINAL DIAGNOSIS Soft tissue, right middle finger, [...] 1225 END OF REPORT DEPARTMENT OF PATHOLOGY, [address] [place] [address] Ha Gonzalez M.D. Director [facility] # [id number] 3 Because ethnic data is not always [...] dialysis) Procedures Date Code Description Status 04/19/2019 74528 Excision Tendon Sheath Ganglion /Or Joint Capsule Hand Completed Or Finger 04/19/2019 59870 Excision Tendon Sheath Ganglion /Or Joint Capsule Hand Completed Or Finger 01/15/2019 [id number] Mammogram Completed 10/19/2017 89371529 Mammogram Completed 10/18/2016 26653888 Mammogram Completed 12/22/2015 95036559 Colonoscopy Completed 10/15/2015 20953325 Mammogram Completed 05/29/2014 45758555 Mammogram Completed 12/10/2013 184497441 Bone Mineral Density Test Completed 01/23/2013 63968520 Mammogram Completed 11/05/2012 70090820 Colonoscopy Completed 08/28/2012 421954533 Bone Mineral Density Test Completed 07/02/2012 [id number] Mammogram Completed 06/25/2012 95529625 Mammogram Completed 06/26/2002 13108356 Colonoscopy Completed Medical Devices Description No Information Available Encounters Type Date Location Provider Dx Diagnosis Office Visit 04/16/2019 [facility] Jenny Conner, G47.33 Obstructive sleep 10:30a [facility], MORTGAGE UNDERWRITER- apnea (adult) [facility] (pediatric) Office Visit 04/11/2019 [facility] Afia Sheppard, M19.041 [facility] hand R22.31 Localized swelling, mass and lump, right upper limb Office Visit 11/08/2018 3:20p [facility] Internal Medicine - Kathy Glynn MD R51 Headache [facility] H93.13 Tinnitus, bilateral Assessments Date Code Description Provider 05/09/2019 R51 Headache Harjit Gregg MD 05/09/2019 G60.9 Hereditary and idiopathic neuropathy, Harjit Gregg MD unspecified 04/29/2019 M67.441 Ganglion, right hand Afia Sheppard M.D. 04/29/2019 Z48.02 Encounter for removal of sutures Afia Sheppard M.D. 04/19/2019 M67.441 Ganglion, right hand Clementine Childress, RPA-C 04/19/2019 M67.441 Ganglion, right hand Afia Sheppard M.D. 04/16/2019 G47.33 Obstructive sleep apnea (adult) Jenny Conner DNP RN, (pediatric) [place] 04/11/2019 M19.041 Primary osteoarthritis, right hand Afia Sheppard M.D. 04/11/2019 R22.31 Localized swelling, mass and lump, Afia Sheppard M.D. right upper limb 03/12/2019 Z00.00 Encounter for general adult medical Kathy Glynn MD examination without abnormal findings 03/12/2019 I47.1 Supraventricular tachycardia Kathy Glynn MD 03/12/2019 R53.83 Other fatigue Kathy Glynn MD 11/08/2018 R51 Headache Kathy Glynn MD 11/08/2018 H93.13 Tinnitus, bilateral Kathy Glynn MD Plan of Treatment Future Appointment(s):11/07/2019 10:15 am - Harjit Gregg MD at [facility]10/15/2019 10:30 am - Jenny Conner DNP, RN, MORTGAGE UNDERWRITER- BC at [facility]03/17/2020 11:20 am - Kathy Glynn MD at [facility] Internal Medicine - [facility]05/09/2019 - Harjit Gregg, MDR51 HeadacheFollow up:6 zhymfrB72.9 Hereditary and idiopathic neuropathy, unspecified Functional Status Description No Information Available Mental Status Description No Information Available Referrals Description No Information Available
--- OUTSIDE RECORDS SUMMARY | 2019-05-17 15:19 | XMS REPORT | Continuity of Care Document ---
:1940 External Reference #:[id number] Author Name Afia Sheppard M.D. (transmitted by agent of provider Cynthia Greenwood) Address [address] [place] [address] Care Team Providers Name Role Phone Afia Sheppard M.D. - Surgery of Care Team Information Furniture Delivery Driver [phone] the Hand Kamron Estrada DO, [facility] - Care Team Information Furniture Delivery Driver [phone] Cardiovascular Disease Da Wiley MD - Sports Medicine Care Team Information Furniture Delivery Driver [phone] Kathy Glynn MD - Internal Medicine Care Team Information Furniture Delivery Driver Problems Active Problems Provider Date Depressive disorder Umesh Cardenas M.D.,FACP Onset: 05/11/2011 Paroxysmal supraventricular Umesh Cardenas M.D.,FACP Onset: 12/13/2016 tachycardia Kyphoscoliosis and scoliosis Umesh Cardenas M.D.,FACP Onset: 05/11/2011 Hyperlipidemia Umesh Cardenas M.D.,FACP Onset: 11/28/2013 Primary fibromyalgia syndrome Umesh Cardenas M.D.,FACP Onset: 04/02/2014 Obstructive sleep apnea of adult Jenny Conner DNP, RN, Onset: 06/17/2014 RADIAL SAW OPERATOR-BC Note: 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 04/15/2019 Tablets needed pain For use after surgery Medications Administered in Office Medication SIG Qnty Indications Ordering Provider Date Depomedrol 80MG Afia Sheppard M.D. 07/10/2014 Injection Depomedrol 80MG Afia Sheppard M.D. 07/10/2014 Injection Immunizations CPT Code Status Date Vaccine Lot # [id number] Given 10/08/2015 Pneumococcal Conjugate Vaccine 13 Valent For [id number] Intramuscular Use 31856 Given 04/17/2012 Tdap - Tetanus/Diptheria/Acellular Pertussis [id number] Q2038 Given 03/23/2012 Fluzone Vaccine [id number] 69912 Given 03/04/2011 Zoster (Zostavax) [id number] 34873 Given 03/04/2011 Pneumonia Vaccine [id number] 89445 Given 08/16/2004 Td Toxoids Adsorbed For Use 7Yrs Or Older For Intramuscular Use 78470 Refused 05/11/2011 Influenza Virus 3Yrs & Over Vital Signs Date Vital Result Comment 04/29/2019 10:46am Height 65.5 inches 5'5.50" Weight 144.50 lb Heart Rate 74 /min BP Systolic Sitting 126 mmHg Lue reg cuff BP Diastolic Sitting 70 mmHg Lue reg cuff Respiratory Rate 14 /min Body Temperature 96.4 F Tympanic BMI (Body Mass Index) 23.7 kg/m2 04/16/2019 10:15am Height 64.5 inches 5'4.50" Weight 142.00 lb Heart Rate 78 /min BP Systolic Sitting 114 mmHg Lue reg cuff BP Diastolic Sitting 66 mmHg Lue reg cuff O2 % BldC Oximetry 95 % On Ra BMI (Body Mass Index) 24.0 kg/m2 Results Test Acquired Date Facility Test Result H/L Range Note Surgical 04/19/2019 [facility] Surgical SEE RESULT 1, [address] [place] [address] [phone] PDFReport [id number] <SEE NOTE> CBC Auto 03/14/2019 [facility] White Blood 6.0 10^3/uL Normal 3.5-10.[address] [place] [address] [phone] Red Blood Count 4.27 10^6/uL Normal 3.70-4.87 [...] Blood Cells % 0.3 Comp Metabolic 03/14/2019 [facility] Sodium 138 mmol/L Normal 135-[address] [place] [address] [phone] Potassium 4.4 mmol/L Normal 3.5-5.0 Chloride 102 [...] >60 Egfr 53.4 >60 3 Laboratory 03/14/2019 [facility] TSH (Thyroid 1.88 Normal 0.34 -5.60 test finding [address] Stim Horm) mcIU/[place] [address] [phone] C Reactive Protein < 1.00 mg/L Normal <8.01 1 [id number] 2 SEE RESULT BELOW Name: EAGLE FIGUEREDO : [address]: Afia Sheppard MD Acct: [id number] Unit: [id number] AGE: 78 Location: [facility] Re04/19/19 SEX: F Status: AWA TORRES SPEC: [id number] ELIZABETH: 04/19/[address] [facility] [address]: Afia Sheppard MD REQ: [id number] RECD: 04/19/19 STATUS: SOUT _ ORDERED: LEVEL 3 COMMENTS: [id number] FINAL DIAGNOSIS Soft tissue, right middle finger, [...] 1225 END OF REPORT DEPARTMENT OF PATHOLOGY, [address] [place] [address] Ha Gonzalez M.D. Director [facility] # [id number] 3 Because ethnic data is not always [...] dialysis) Procedures Date Code Description Status 04/19/2019 19619 Excision Tendon Sheath Ganglion /Or Joint Capsule Hand Completed Or Finger 04/19/2019 57025 Excision Tendon Sheath Ganglion /Or Joint Capsule Hand Completed Or Finger 01/15/2019 [id number] Mammogram Completed 10/19/2017 [id number] Mammogram Completed 10/18/2016 [id number] Mammogram Completed 12/22/2015 [id number] Colonoscopy Completed 10/15/2015 [id number] Mammogram Completed 05/29/2014 [id number] Mammogram Completed 12/10/2013 [id number] Bone Mineral Density Test Completed 01/23/2013 [id number] Mammogram Completed 11/05/2012 [id number] Colonoscopy Completed 08/28/2012 [id number] Bone Mineral Density Test Completed 07/02/2012 [id number] Mammogram Completed 06/25/2012 [id number] Mammogram Completed 06/26/2002 [id number] Colonoscopy Completed Medical Devices Description No Information Available Encounters Type Date Location Provider Dx Diagnosis Office Visit 04/16/2019 [facility] Jenny Conner, G47.33 Obstructive sleep 10:30a [facility], RADIAL SAW OPERATOR-BC apnea (adult) [facility] (pediatric) Office Visit 04/11/2019 [facility] Afia Sheppard, M19.041 Primary 2:30p at [place] Keira osteoarthritis, right hand R22.31 Localized swelling, mass and lump, right upper limb Office Visit 11/08/2018 3:20p [facility] Internal Medicine - [facility] R[facility] Tinn[facility], bilateral Assessments Date Code Description Provider 04/29/2019 M67.441 Ganglion, right hand Afia Sheppard M.D. 04/19/2019 M67.441 Ganglion, right hand Clementine Childress RPA-C 04/19/2019 M67.441 Ganglion, right hand Afia Sheppard M.D. 04/16/2019 G47.33 Obstructive sleep apnea (adult) Jenny Conner DNP, RN, (pediatric) VARUN 04/11/2019 M19.041 Primary osteoarthritis, right hand Afia [...] Kathy Glynn MD Plan of Treatment Future Appointment(s):10/15/2019 10:30 am - Jenny Conner DNP, RN, RADIAL SAW OPERATOR-BC at [facility]03/17/2020 11:20 am - Kathy lGynn MD at [facility] Internal Medicine - [facility]05/09/2019 9:45 am - Harjit Gregg MD at [facility]04/29/2019 - Afia Sheppard M.D.M67.441 Ganglion, right handFollow up:Follow up: As needed Functional Status Description No Information Available Mental Status Description No Information Available Referrals Description No Information Available
--- OUTSIDE RECORDS SUMMARY | 2019-05-17 15:19 | XMS REPORT | Continuity of Care Document ---
:1940 External Reference #:[id number] Author Name Jenny Conner DNP, RN, WELDER APPRENTICE ARC-BC (transmitted by agent of provider Renea Alvarado) Address [address] [facility], [address] [place] [address] Care Team Providers Name Role Phone Afia Sheppard M.D. - Surgery of Care Team Information Communication Professor the Hand Kamorn Estrada DO, [facility] - Care Team Information Communication Professor [phone] Cardiovascular Disease Da Wiley MD - Sports Medicine Care Team Information Communication Professor Kathy Glynn MD - Internal Medicine Care Team Information Communication Professor [phone] Problems Active Problems Provider Date Depressive disorder Umesh Cardenas M.D.,FACP Onset: 05/11/2011 Paroxysmal supraventricular Umesh Cardenas M.D.,FACP Onset: 12/13/2016 tachycardia Kyphoscoliosis and scoliosis Umesh Cardenas M.D.,FACP Onset: 05/11/2011 Hyperlipidemia Umesh Cardenas M.D.,FACP Onset: 11/28/2013 Primary fibromyalgia syndrome Umesh Cardenas M.D.,FACP Onset: 04/02/2014 Obstructive sleep apnea of adult Jenny Conner DNP, RN, Onset: 06/17/2014 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-BC Note: on CPAP Idiopathic peripheral neuropathy Harjit Gregg MD Onset: 06/03/2015 Carpal tunnel syndrome of left wrist Harjit Gregg MD Onset: 06/03/2015 Abnormal gait Harjit Gregg MD Onset: 10/29/2015 Neck pain Harjit Gergg MD Onset: 10/29/2015 Lumbar radiculopathy Harjit Gregg MD Onset: 10/29/2015 Localized, primary osteoarthritis of Umesh Cardenas M.D.,FACP Onset: 03/2016 the shoulder region Note: LEFT Thoracic and lumbosacral neuritis Harjit Gregg MD Onset: 08/18/2016 Bilateral carpal tunnel syndrome Harjit Gregg MD Onset: 11/16/2017 Social History Type Date Description Comments Sex Unknown Tobacco Use Start: Unknown Never Smoked Cigarettes Smoking Status Reviewed: 04/16/19 Never Smoked Cigarettes ETOH Use 03/06/2018 Consumes 1 glass of wine per day Tobacco Use Start: Unknown Patient has never smoked Recreational Drug Use Denies Drug Use Exercise Type/Frequency Riley Chi Allergies, Adverse Reactions, Alerts Description No Known Drug Allergies Medications Active Medications SIG Qnty Indications Ordering Date Provider Gabapentin 4 caps by mouth 240caps G60.8 Harjit Gregg, 09/20/2017 100mg twice a day Capsules Cymbalta 1 by mouth every 90caps Harjit Gregg, 04/13/2015 60mg Caps day MD DR Hawley Lorazepam 1-2 by mouth every 30tabs Umesh Lopez 0.5mg 8 hours as needed Keira Cardenas,FACP Tablets [place] 3 daily Unknown Capsules Vitamin B-12 daily [...] one time Capsules per day History Medications [place] one tab by mouth 15tabs Afia Sheppard, 04/12/2019 - 5-325mg every 4-6 hours as M.DPraveena 04/15/2019 Tablets needed pain For use after surgery Medications Administered in Office Medication SIG Qnty Indications Ordering Provider Date Depomedrol 80MG Afia Sheppard M.D. 07/10/2014 Injection Depomedrol 80MG Afia Sheppard M.D. 07/10/2014 Injection Immunizations CPT Code Status Date Vaccine Lot # [id number] Given 10/08/2015 Pneumococcal Conjugate Vaccine 13 Valent For [id number] Intramuscular Use 67283 Given 04/17/2012 Tdap - Tetanus/Diptheria/Acellular Pertussis [id number] Q2038 Given 03/23/2012 Fluzone Vaccine [id number] 00386 Given 03/04/2011 Zoster (Zostavax) [id number] 20154 Given 03/04/2011 Pneumonia Vaccine [id number] 12064 Given 08/16/2004 Td Toxoids Adsorbed For Use 7Yrs Or Older For Intramuscular Use 27207 Refused 05/11/2011 Influenza Virus 3Yrs & Over Vital Signs Date Vital Result Comment 04/16/2019 10:15am Height 64.5 inches 5'4.50" Weight 142.00 lb Heart Rate 78 /min BP Systolic Sitting 114 mmHg Lue reg cuff BP Diastolic Sitting 66 mmHg Lue reg cuff O2 % BldC Oximetry 95 % On Ra BMI (Body Mass Index) 24.0 kg/m2 04/11/2019 3:03pm Height 64.5 inches 5'4.50" Weight 141.00 lb Heart Rate 68 /min BP Systolic 122 mmHg BP Diastolic 62 mmHg Body Temperature 97.9 F Pain Level 2 BMI (Body Mass Index) 23.8 kg/m2 Results Test Date Facility Test Result H/L Range Note CBC Auto 03/14/2019 [facility] White Blood 6.0 10^3/uL Normal 3.5-10.[address] [place] [address] [phone] Red Blood Count 4.27 10^6/uL Normal 3.70-4.87 [...] Blood Cells % 0.3 Comp Metabolic 03/14/2019 [facility] Sodium 138 mmol/L Normal 135-[address] [place] [address] [phone] Potassium 4.4 mmol/L Normal 3.5-5.0 Chloride 102 [...] Egfr Non- 44.1 >60 Egfr 53.4 >60 1 Laboratory 03/14/2019 [facility] TSH (Thyroid 1.88 Normal 0.34 -5.60 test finding [address] Stim Horm) mcIU/[place] [address] [phone] C Reactive Protein < 1.00 mg/L Normal <8.01 1 Because ethnic data is not always [...] (or dialysis) Procedures Date Code Description Status 01/15/2019 [id number] Mammogram Completed 10/19/2017 [id number] Mammogram Completed 10/18/2016 [id number] Mammogram Completed 12/22/2015 [id number] Colonoscopy Completed 10/15/2015 [id number] Mammogram Completed 05/29/2014 [id number] Mammogram Completed 12/10/2013 [id number] Bone Mineral Density Test Completed 01/23/2013 [id number] Mammogram Completed 11/05/2012 [id number] Colonoscopy Completed 08/28/2012 [id number] Bone Mineral Density Test Completed 07/02/2012 [id number] Mammogram Completed 06/25/2012 [id number] Mammogram Completed 06/26/2002 [id number] Colonoscopy Completed Medical Devices Description No Information Available Encounters Type Date Location Provider Dx Diagnosis Office Visit 11/08/2018 3:20p [facility] Internal Medicine - Kathy Glynn MD R51 Headache Ccmob H93.13 Tinnitus, bilateral Assessments Date Code Description Provider 04/16/2019 G47.33 Obstructive sleep apnea (adult) Jenny Conner DNP, RN, (pediatric) WELDER APPRENTICE ARC-BC 04/11/2019 M19.041 Primary osteoarthritis, right hand Afia Sheppard M.D. 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 at [facility] at [id number]/19/2019 2:45 pm - JOSE Blandon at [facility] at [id number]/19/2019 2:45 pm - Afia Sheppard M.D. at [facility] at [id number]/17/2020 11:20 am - Kathy Glynn MD at [facility] Internal Medicine - [facility]05/09/2019 9:45 am - Harjit Gregg MD at [facility]04/16/2019 - Jenny Conner DNP, RN, WELDER APPRENTICE ARC-BCG47.33 Obstructive sleep apnea (adult) (pediatric)Follow up:6 months or before, if neededRecommendations:continue the Inspire, hypoglossal nerve stimulator You said you feel best rested at setting #3 for advancement, will let you know if this is adequate. If not adequate, you may need to advance to higher degree, you can wait until the study results are reviewed. I will call you to review the study results and we can send copy via portal or mail it, if you would like. Avoid weight gain Functional Status Description No Information Available Mental Status Description No Information Available Referrals Description No Information Available
--- OUTSIDE RECORDS SUMMARY | 2019-05-17 15:19 | XMS REPORT | Continuity of Care Document ---
:1940 External Reference #:[id number] Author Name Afia Sheppard M.D. (transmitted by agent of provider Micki Carrillo) Address [address] [place] [address] Care Team Providers Name Role Phone Afia Sheppard M.D. - Surgery of Care Team Information High School Professional the Hand Kamron Estrada DO, [facility] - Care Team Information High School Professional [phone] Cardiovascular Disease Da Wiley MD - Sports Medicine Care Team Information High School Professional [phone] Kathy Glynn MD - Internal Medicine Care Team Information High [employer] Professional Problems Active Problems Provider Date Depressive disorder Umesh Cardenas M.D.,FACP Onset: 05/11/2011 Paroxysmal supraventricular Umesh Cardenas M.D.,FACP Onset: 12/13/2016 tachycardia Kyphoscoliosis and scoliosis Umesh Cardenas M.D.,FACP Onset: 05/11/2011 Hyperlipidemia Umesh Cardenas M.D.,FACP Onset: 11/28/2013 Primary fibromyalgia syndrome Umesh Cardenas M.D.,FACP Onset: 04/02/2014 Obstructive sleep apnea of adult Jenny Conner DNP, RN, Onset: 06/17/2014 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 Capsules Cymbalta 1 by mouth every 90caps Harjit Gregg, 04/13/2015 60mg Caps day MD DR Hawley Lorazepam 1-2 by mouth every 30tabs Umesh Lopez 0.5mg 8 hours as needed Keira Cardenas,FACP Tablets [place] 3 daily Unknown Capsules Vitamin B-12 daily Unknown Probiotic Formula daily Unknown Capsules Turmeric four daily Unknown Holy Basil Homeopathic prn Unknown Vitamin D 1 by mouth every Unknown (Cholecalciferol) day Capsules Magnesium 1 by mouth every Unknown Tablets day Calcium daily Unknown 1500mg Tablets Zinc 1 by mouth every Unknown 30mg Capsules day CBD Oil when needed for Unknown pain Curcumin With Unknown [place] Medications Administered in Office Medication SIG Qnty Indications Ordering Provider Date Depomedrol 80MG Afia Sheppard M.D. 07/10/2014 Injection Depomedrol 80MG Afia Sheppard M.D. 07/10/2014 Injection Immunizations CPT Code Status Date Vaccine Lot # [id number] Given 10/08/2015 Pneumococcal Conjugate Vaccine 13 Valent For [id number] Intramuscular Use 83763 Given 04/17/2012 Tdap - Tetanus/Diptheria/Acellular Pertussis [id number] Q2038 Given 03/23/2012 Fluzone Vaccine [id number] 09771 Given 03/04/2011 Zoster (Zostavax) [id number] 81144 Given 03/04/2011 Pneumonia Vaccine [id number] 52470 Given 08/16/2004 Td Toxoids Adsorbed For Use 7Yrs Or Older For Intramuscular Use 31630 Refused 05/11/2011 Influenza Virus 3Yrs & Over Vital Signs Date Vital Result Comment 04/11/2019 3:03pm Height 64.5 inches 5'4.50" Weight 141.00 lb Heart Rate 68 /min BP Systolic 122 mmHg BP Diastolic 62 mmHg Body Temperature 97.9 F Pain Level 2 BMI (Body Mass Index) 23.8 kg/m2 03/12/2019 11:21am Height 64.24 inches 5'4.24" Weight 140.38 lb Heart Rate 72 /min BP Systolic Sitting 115 mmHg BP Diastolic Sitting 71 mmHg Body Temperature 97.2 F O2 % BldC Oximetry 97 % BMI (Body Mass Index) 23.9 kg/m2 Results Test Date Facility Test Result H/L Range Note CBC Auto 03/14/2019 [facility] White Blood 6.0 10^3/uL Normal 3.5-10.[address] [place] [address] [phone] Red Blood Count 4.27 10^6/uL Normal 3.70-4.87 [...] Blood Cells % 0.3 Comp Metabolic 03/14/2019 [facility] Sodium 138 mmol/L Normal 135-[address] [place] [address] [phone] Potassium 4.4 mmol/L Normal 3.5-5.0 Chloride 102 [...] >60 Egfr 53.4 >60 1 Laboratory 03/14/2019 [facility] TSH (Thyroid 1.88 Normal 0.34 -5.60 test finding [address] Stim Horm) mcIU/[place] [address] [phone] C Reactive Protein < 1.00 mg/L Normal [...] dialysis) Procedures Date Code Description Status 01/15/2019 [id number] Mammogram Completed 10/19/2017 [id number] Mammogram Completed 10/18/2016 [id number] Mammogram Completed 12/22/2015 [id number] Colonoscopy Completed 10/15/2015 [id number] Mammogram Completed 05/29/2014 [id number] Mammogram Completed 12/10/2013 [id number] Bone Mineral Density Test Completed 01/23/2013 [id number] Mammogram Completed 11/05/2012 [id number] Colonoscopy Completed 08/28/2012 [id number] Bone Mineral Density Test Completed 07/02/2012 [id number] Mammogram Completed 06/25/2012 [id number] Mammogram Completed 06/26/2002 [id number] Colonoscopy Completed Medical Devices Description No Information Available Encounters Type Date Location Provider Dx Diagnosis Office Visit 11/08/2018 3:20p [facility] Internal Medicine - Kathy Glynn MD R51 Headache Ccmob H93.13 Tinnitus, bilateral Assessments Date Code Description Provider 04/11/2019 M19.041 Primary osteoarthritis, right hand Afia Sheppard M.D. 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 and other soft tissue 03/12/2019 Z00.00 Encounter for general adult medical Kathy Glynn MD examination without abnormal findings 03/12/2019 I47.1 Supraventricular tachycardia Kathy Glynn MD 03/12/2019 R53.83 Other fatigue Kathy Glynn MD 11/08/2018 R51 Headache Kathy Glynn MD 11/08/2018 H93.13 Tinnitus, bilateral Kathy Glynn MD Plan of Treatment Future Appointment(s):04/19/2019 2:45 pm - Afia Sheppard M.D.03/17/2020 11: 20 am - Kathy Glynn MD at [facility] Internal Medicine - [facility]05/09/2019 9:45 am - Harjit Gregg MD at [facility]04/16/2019 10:30 am - Jenny Conner DNP, RN, REGIONAL 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
[2019-05-17 15:46] LABS: ABS Basophils 0.1 10^3/ul (0-0.2); ABS Eosinophils 0.1 10^3/ul (0-0.6); ABS Lymphocytes 1.3 10^3/ul (1.0-4.8); ABS Monocytes 0.4 10^3/ul (0-0.8); ABS Neutrophils 4.6 10^3/ul (1.5-7.7); Eosinophil % 2.2 %; Hematocrit 43 % (35-47); Hemoglobin 14.2 g/dL (12.0-16.0); Lymphocyte % 19.7 %; Mean Corpuscular HGB Conc 34 g/dL (31-36); Mean Corpuscular Hemoglobin 32 pg (27-31); Mean Corpuscular Volume 95 fL (80-97); Mean Platelet Volume 7.9 fL (7.4-10.4); Nucleated Red Blood Cells % 0.2; Platelet Count 244 10^3/uL (150-450); Red Blood Count 4.45 10^6 /uL (3.70-4.87); Red Cell Distribution Width 14 % (10-15); White Blood Count 6.5 10^3/uL (3.5-10.8)
[2019-05-17 16:03] LABS: Troponin I 0.01 ng/mL (<0.03)
[2019-05-17 16:07] LABS: Albumin 4.3 g/dL (3.2-5.2); Albumin/Globulin Ratio 1.8 (1-3); BUN/Creatinine Ratio 33.3 (8-20); Calcium 9.4 mg/dL (8.6-10.3); EGFR African American 79.8 (>60); EGFR Non-African American 65.9 (>60); Globulin 2.4 g/dL (2-4); Magnesium 2.1 mg/dL (1.9-2.7); Total Bilirubin 0.6 mg/dL (0.2-1.0); Total Protein 6.7 g/dL (6.4-8.9)
[2019-05-17 16:08] LABS: CKMB ng/mL 5.3 ng/mL (0.6-6.3)
[2019-05-17 16:27] LABS: TSH (Thyroid Stimulating Horm) 1.83 mcIU/mL (0.34-5.60)
[2019-05-17 16:58] VITALS: BP 119/73
== END 2019-05-17 16:57 | disposition home or self-care (01) ==
LOC: ED 14:51
DX: I47.1 Supraventricular tachycardia (principal); F41.9 Anxiety disorder, unspecified; F32.9 Major depressive disorder, single episode, unspecified; Z96.653 Presence of artificial knee joint, bilateral
CPT/HCPCS: 36415; 71045; 80053; 82553; 83605; 83735; 83880; 84443; 84484; 85025; 93005; 99282